=== PATIENT | male | born 1955 | race Caucasian/White ===

== ENCOUNTER 2024-08-29 13:01 | Inpatient (IN) | payer MEDICARE, OTHER, SELFPAY ==
[2024-08-29] VITALS (22 sets, daily range): BP systolic 130–162; BP diastolic 82–93; PULSE 92–116; TEMP 36.6–37.1; O2SAT 87–95; BMI 31.7; BMI 32.3
--- NOTE | 2024-08-29 13:19 | ECG_ITS ---
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
--- NOTE | 2024-08-29 13:21 | ED_ITS ---
HPI HPI - General Adult General Chief complaint: Shortness of Breath/Dyspnea Stated complaint: SHORT OF BREATH, COUGH Time Seen by Provider: 08/29/24 13:05 Source: patient Mode of arrival: walk-in Limitations: no limitations History of Present Illness HPI narrative: Patient is a 69-year-old male who presents to the emergency department for shortness of breath that has been worsening over the last several days. He states he had influenza 2 months ago and has had worsening/continued shortness of breath since he recovered from influenza. He has been to the doctor multiple times. He is currently taking cefdinir. He finished a course of steroids 2 weeks ago. He has an albuterol inhaler and nebulizer machine at home. He states his doctor is out of the office this week and he has called multiple pulmonology offices but they will need referrals so he came to the emergency department today. He reports a hacking cough. He typically has clear to white sputum but states occasionally he coughs up brown or blood-tinged sputum. No fevers, leg swelling. Related Data Home Medications ?Medication ?Instructions ?Recorded ?Confirmed albuterol sulfate 90 mcg/actuation 2 puff inhalation Q6H PRN 08/29/24 08/29/24 aerosol inhaler shortness of breath or wheezing atorvastatin 40 mg tablet 40 mg PO DAILY 08/29/24 08/29/24 clopidogrel 75 mg tablet 75 mg PO DAILY 08/29/24 08/29/24 metoprolol succinate 25 mg 25 mg PO DAILY 08/29/24 08/29/24 tablet,extended release 24 hr nitroglycerin 0.4 mg sublingual 0.4 mg sublingual Q5M PRN chest 08/29/24 08/29/24 tablet pain Allergies Allergy/AdvReac Type Severity Reaction Status Date / Time lisinopril Allergy Severe lip Verified 08/29/24 13:12 swelling Opioid HPI Opioid Management Most Recent Opioid Data: No Data to Display Review of Systems ROS Constitutional Denies: fever or chills Ears, nose, mouth, and throat Denies: throat pain or nasal congestion Cardiovascular Denies: chest pain Respiratory Reports: shortness of breath, cough, wheezing, change in phlegm color and coughing up blood Gastrointestinal Denies: abdominal pain, nausea or vomiting Musculoskeletal Denies: back pain Integumentary/Breast Denies: rash Neurological Denies: numbness in extremities or weakness in extremities Hematologic/Lymphatic Denies: easy bruising or easy bleeding PFSH PFSH Social History Little interest or pleasure in doing things: not at all Feeling down, depressed, or hopeless: not at all Exam Narrative Exam Narrative: Gen.: Awake, alert, in no distress Head: Normocephalic, atraumatic ENT: Moist mucous membranes Respiratory: Speaks in full sentences, inspiratory and expiratory wheezing Cardio: Regular rate and rhythm Extremities: Moves extremities equally Psych: Normal mood and affect Neuro: No focal neuro deficit Skin: Warm, dry, intact Constitutional Vital Signs, click to edit/add: Last Vital Signs Temp 98.8 F 08/29/24 13:06 Pulse 116 H 08/29/24 14:40 Resp 23 H 08/29/24 14:26 BP 135/86 08/29/24 14:26 Pulse Ox 94 L 08/29/24 14:26 O2 Del Method Nasal Cannula 08/29/24 13:40 O2 Flow Rate 2 08/29/24 13:40 Course Vital Signs Vital signs: Vital Signs Temperature 98.8 F 08/29/24 13:06 Pulse Rate 100 H 08/29/24 13:06 Respiratory Rate 20 08/29/24 13:06 Blood Pressure 148/83 H 08/29/24 13:06 Pulse Oximetry 93 L 08/29/24 13:06 Oxygen Delivery Method Room Air 08/29/24 13:06 Temperature 98.8 F 08/29/24 13:06 Pulse Rate 116 H 08/29/24 14:40 Respiratory Rate 23 H 08/29/24 14:26 Blood Pressure 135/86 08/29/24 14:26 Pulse Oximetry 94 L 08/29/24 14:26 Oxygen Delivery Method Nasal Cannula 08/29/24 13:40 Oxygen Delivery Flow Rate 2 08/29/24 13:40 Medical Decision Making MDM Narrative Medical decision making narrative: Sepsis set was used to obtain a sepsis workup, blood cultures. CT angio of the chest performed showing a right upper lobe pneumonia. Patient has been on cefdinir for 6 days. He has not been formally diagnosed with COPD by his primary care provider and has not yet seen a physical laboratory assistant, although he is a former smoker and I suspect he has COPD with an acute exacerbation. He was given a DuoNeb, Solu-Medrol, magnesium, IV fluids. He was noted to become hypoxic in the ER at 88 to 89% on room air and was placed on oxygen by nasal cannula 2 L with improvement. He will be admitted for COPD exacerbation, right upper lobe pneumonia, failure of outpatient treatment. IV Levaquin given for antibiotic coverage. Respiratory swabs obtained. SUPERVISED APC VISIT, PHYSICIAN ATTESTATION: Based on the medical record the care appears appropriate. ? Medical Records Medical records reviewed: Yes I reviewed the patient's medical records Lab Data Lab results reviewed: Yes I reviewed the patient's lab results Labs: Lab Results 08/29/24 08/29/24 Range/Units 13:30 13:39 WBC 6.2 (4.0-11.0) 10^3/uL RBC 4.97 (4.70-6.10) 10^6/uL Hgb 15.0 (14.0-18.0) g/dL Hct 46.7 (42.0-54.0) % MCV 94.0 (80.0-94.0) fL MCH 30.2 (25.9-34.0) pg MCHC 32.1 (29.9-35.2) g/dL RDW 13.5 (11.0-15.0) % Plt Count 255 (150-450) 10^3/uL MPV 10.4 (9.5-13.5) fL Neut % (Auto) 53.0 (43.0-75.0) % Lymph % (Auto) 28.3 (20.5-60.0) % [place] % (Auto) 7.7 (1.7-12.0) % Eos % (Auto) 10.0 H (0.9-7.0) % Baso % (Auto) 0.8 (0.2-2.0) % Neut # (Auto) 3.3 (1.4-6.5) 10^3/uL Lymph # (Auto) 1.8 (1.2-3.8) 10^3/uL [place] # (Auto) 0.5 (0.3-0.8) 10^3/uL Eos # (Auto) 0.6 (0.0-0.7) 10^3/uL Baso # (Auto) 0.1 (0.0-0.1) 10^3/uL Abs Immat Gran (auto) 0.01 (0.00-0.03) 10^3/uL Imm/Tot Granulo (auto) 0.2 (0.0-0.5) % PT 11.0 (9.0-11.6) sec INR 1.04 APTT 31.9 (22.3-36.2) sec VBG pH 7.382 (7.330-7.430) VBG pCO2 58.6 H (40.0-52.0) mmHg Sodium 141 (136-145) mmol/L Potassium 3.6 (3.5-5.1) mmol/L Chloride 102 (98-107) mmol/L Carbon Dioxide 31.9 (21.0-32.0) mmol/L Anion Gap 10.7 BUN 17.0 (7.0-18.0) mg/dL Creatinine 0.87 (0.70-1.30) mg/dL Est GFR ( Amer) >60 (>=60 mL/min/1.73m^2) Est GFR (Non-Af Amer) >60 (>=60 mL/min/1.73m^2) BUN/Creatinine Ratio 19.5 Glucose 154 H (74-106) mg/dL Lactate 1.8 (0.4-2.0) mmol/L Calcium 9.5 (8.5-10.1) mg/dL Magnesium 2.1 (1.8-2.4) mg/dL Total Bilirubin 0.5 (0.2-1.0) mg/dL AST 24 (15-37) U/L ALT 28 (16-63) U/L Alkaline Phosphatase 72 (46-116) U/L Troponin I High Sens 5.2 (4.0-76.1) pg/mL NT-Pro-B Natriuret Pep 82.0 (<=900.0) pg/mL Total Protein 7.4 (6.4-8.2) g/dL Albumin 3.8 (3.4-5.0) g/dL Globulin 3.6 g/dL Albumin/Globulin Ratio 1.[address] scan - chest: Attestation: I have reviewed the pertinent imaging results. ECG Data Attestation: I personally reviewed and interpreted this ECG as follows: (Normal sinus rhythm at a rate of 93, sinus arrhythmia, no acute ST elevation or ectopy. EKG reviewed by attending physician) Discharge Plan Discharge Chief Complaint: Shortness of Breath/Dyspnea Patient Disposition: Admitted As Inpatient Time of Disposition Decision: 15:12 Prescriptions / Home Meds: No Action clopidogrel 75 mg tablet 75 mg PO DAILY albuterol sulfate 90 mcg/actuation HFA aerosol inhaler 2 puff INHALATION Q6H PRN (Reason: shortness of breath or wheezing) metoprolol succinate 25 mg tablet extended release 24 hr 25 mg PO DAILY atorvastatin 40 mg tablet 40 mg PO DAILY nitroglycerin 0.4 mg tablet, sublingual 0.4 mg sublingual Q5M PRN (Reason: chest pain) Print Language: Korean Referrals: BARRERA ARRIOLA [Primary Care Provider] - 1 week
[2024-08-29] MEDS: IPRATROPIUM/ALBUTEROL SULFATE 3 ML AMPUL.NEB IH ×3 (13:40→22:58)
[2024-08-29] MEDS: HYDROCODONE BIT/HOMATROP 5 MG/1.5 MG TABLET 1 TAB PO (13:41)
[2024-08-29] MEDS: METHYLPREDNISOLONE SOD SUCC PF 125 MG/2 ML VIAL IVP (13:41)
[2024-08-29] MEDS: MAGNESIUM SULFATE IN WATER 2 GM/50 ML PREMIX IV (13:41)
[2024-08-29 13:52] LABS: PCO2 VBG 58.6 mmHg (40.0-52.0); pH VBG 7.382 (7.330-7.430)
[2024-08-29 13:55] LABS: Basophils Absolute Auto 0.1 10^3/uL (0.0-0.1); Basophils Percent Auto 0.8 % (0.2-2.0); Eosinophils Absolute Auto 0.6 10^3/uL (0.0-0.7); Hematocrit 46.7 % (42.0-54.0); Immature Granulocytes Abs Auto 0.01 10^3/uL (0.00-0.03); Immature Granulocytes Pct Auto 0.2 % (0.0-0.5); Lymphocytes Absolute Auto 1.8 10^3/uL (1.2-3.8); Lymphocytes Percent Auto 28.3 % (20.5-60.0); Mean Corpuscular HGB Conc 32.1 g/dL (29.9-35.2); Mean Corpuscular Hemoglobin 30.2 pg (25.9-34.0); Mean Platelet Volume 10.4 fL (9.5-13.5); Monocytes Absolute Auto 0.5 10^3/uL (0.3-0.8); Monocytes Percent Auto 7.7 % (1.7-12.0); Neutrophils Absolute Auto 3.3 10^3/uL (1.4-6.5); Platelet Count 255 10^3/uL (150-450); Red Blood Count 4.97 10^6/uL (4.70-6.10); Red Cell Distribution Width 13.5 % (11.0-15.0); White Blood Count 6.2 10^3/uL (4.0-11.0)
[2024-08-29 14:07] LABS: INR 1.04; Partial Thromboplastin Time 31.9 sec (22.3-36.2)
[2024-08-29 14:12] LABS: Lactate/Lactic Acid 1.8 mmol/L (0.4-2.0)
[2024-08-29 14:19] LABS: Alanine Aminotransferase 28 U/L (16-63); Albumin Globulin Ratio 1.1; Albumin Level 3.8 g/dL (3.4-5.0); Alkaline Phosphatase 72 U/L (46-116); Anion Gap 10.7; Aspartate Amino Transferase 24 U/L (15-37); BUN Creatinine Ratio 19.5; Bilirubin Total 0.5 mg/dL (0.2-1.0); Calcium 9.5 mg/dL (8.5-10.1); Carbon Dioxide 31.9 mmol/L (21.0-32.0); Chloride 102 mmol/L (98-107); Estimated GFR (African America >60 (>=60 mL/min/1.73m^2); Estimated GFR (Non-African Ame >60 (>=60 mL/min/1.73m^2); Globulin 3.6 g/dL; Glucose 154 mg/dL (74-106); Magnesium 2.1 mg/dL (1.8-2.4); Potassium 3.6 mmol/L (3.5-5.1); Sodium 141 mmol/L (136-145); Total Protein 7.4 g/dL (6.4-8.2); Troponin I High Sensitivity 5.2 pg/mL (4.0-76.1)
[2024-08-29] MEDS: LEVOFLOXACIN IN DEXTROSE 5 % 750 MG/150 ML PREMIX 100 MG IV (15:14)
[2024-08-29 15:36] LABS: Internal Control Within Normal Limits; SARS-CoV-2 Ag NEGATIVE (NEGATIVE)
[2024-08-29 15:37] LABS: Influenza Virus A Antigen Negative; Influenza Virus B Antigen Negative; Internal Control Within Normal Limits
--- NOTE | 2024-08-29 15:58 | PM.HP ---
HPI H&P: HPI History of Present Illness Chief complaint: SHORT OF BREATH, PNEUMONIA, HYPOXIA Narrative: Patient is a 69 y.o white male with past medical history of CAD s/p 2 stents 2023, HLD, HTN, ex-smoker, who presented to the ER with increased shortness of breath and productive cough. Patient had influenza a few months ago and since that time has been treated by his PCP several times with antibiotics and steroids. He has no active diagnosis of COPD and has never seen a pulmonary doctor or had PFT's. Most recently he was treated with cefdinir. Patient denies n/v/d, no chest pain, just the shortness of breath and cough. Very short of breath on exertion. Patient has been using 's nebulizer treatments. No fever or chills. ER findings: WBC's 6.2, cr 0.87, mag 2.1, Trop 5.2, Flu/Covid negative, Chest CT showed RUL infiltrate consistent with pneumonia. Patient respiratory rate was 29, and pulse ox dropped to 89% and 2L via NC was applied. Patient was admitted for acute community acquired RUL pneumonia. Opioid HPI Opioid Management Most Recent Pain and Opioid Data: Last ORT Total Score 0 08/29/24 16:10 08/29/24 Last ORT Risk Category Low Risk 08/29/24 16:10 08/29/24 Review of Systems ROS Narrative ROS: a complete review of systems were reviewed with patient and are positive as below or listed in History of Chief Complaint. General: no fever, chills, night sweats Head: no headache, trauma, visual changes, nausea or vomiting Skin: no reported rashes, itching or sores Eyes: no blurriness of vision Ears: no reported hearing loss, vertigo, earache, or tinnitus Throat: no sore throat, hoarseness, swelling of neck, or tongue pain Heart: no chest pain Lungs: shortness of breath and cough GI: no diarrhea or vomiting/nausea Urinary: no urinary urgency, frequency or pain Neuro: no numbness or tingling HEM: no bleeding issues or bruising ENDO: no thyroid problems Psych: no anxiety or depression [facility] Medical History (Updated 08/29/24 @ 16:06 by Maria Alejandra Sharma, ) Primary hypertension ?I10 - Essential (primary) hypertension (ICD-10) Hyperlipidemia ?E78.5 - Hyperlipidemia, unspecified (ICD-10) CAD in [place] artery ?I25.10 - Atherosclerotic heart disease of [place] coronary artery without angina pectoris (ICD-10) Surgical History (Updated 08/29/24 @ 17:03 by Maria Alejandra Sharma DO) History of heart artery stent ?Z95.5 - Presence of coronary angioplasty implant and graft (ICD-10) Social History Highest level of school completed/degree received: high school graduate Little interest or pleasure in doing things: several days Feeling down, depressed, or hopeless: not at all Meds Home Medications and Allergies Home Medications ?Medication ?Instructions ?Recorded ?Confirmed ?Type albuterol sulfate 90 mcg/actuation 2 puff inhalation Q6H PRN 08/29/24 08/29/24 History aerosol inhaler shortness of breath or wheezing atorvastatin 40 mg tablet 40 mg PO DAILY 08/29/24 08/29/24 History clopidogrel 75 mg tablet 75 mg PO DAILY 08/29/24 08/29/24 History metoprolol succinate 25 mg 25 mg PO DAILY 08/29/24 08/29/24 History tablet,extended release 24 hr nitroglycerin 0.4 mg sublingual 0.4 mg sublingual Q5M PRN chest 08/29/24 08/29/24 History tablet pain Allergies Allergy/AdvReac Type Severity Reaction Status Date / Time lisinopril Allergy Severe lip Verified 08/29/24 13:12 swelling Exam Narrative Exam Narrative: General: Patient is alert, and oriented to person, place and time with normal affect, proper hygiene, short of breath with conversing Skin: no visible rashes, or ulcers Head: atraumatic, acephalic Eyes: PERRLA, no nystagmus present, conjunctiva clear, no scleral icterus Ears: normal gross auditory acuity Heart: Normal rate and rhythm, no murmurs/rubs/gallops Lungs: audible wheezes, diminished breath sounds in all lung de la o Abdomen: Normal audible bowel sounds, no distension, No palpable masses, no organomegaly, no rebound/guarding/ or rigidity Musculoskeletal: no swelling bilateral lower extremities Neuro: CN II-X grossly intact Constitutional Vital Signs, click to edit/add: Last Vital Signs Temp 98.8 F 08/29/24 13:06 Pulse 97 H 03/18/25 15:17 Resp 17 08/29/24 15:17 BP 139/93 H 08/29/24 15:17 Pulse Ox 92 L 08/29/24 15:17 O2 Del Method Nasal Cannula 08/29/24 13:40 O2 Flow Rate 2 08/29/24 13:40 Results Labs Labs: Short CBC 08/29/24 Range/Units 13:30 WBC 6.2 (4.0-11.0) 10^3/uL Hgb 15.0 (14.0-18.0) g/dL Hct 46.7 (42.0-54.0) % Plt Count 255 (150-450) 10^3/uL BMP 08/29/24 13:30 Sodium 141 Potassium 3.6 Chloride 102 Carbon Dioxide 31.9 BUN 17.0 Creatinine 0.87 Glucose 154 H Calcium 9.5 Liver Function 08/29/24 Range/Units 13:30 Total Bilirubin 0.5 (0.2-1.0) mg/dL AST 24 (15-37) U/L ALT 28 (16-63) U/L Alkaline Phosphatase 72 (46-116) U/L Albumin 3.8 (3.4-5.0) g/dL ABG ABG results: 08/29/24 13:39 VBG pH 7.382 VBG pCO2 58.6 H Assessment and Plan Assessment and Plan (1) Right upper lobe pneumonia: Assessment and Plan: as seen on CT scan. Start IV levaquin and IV rocephin. obtain sputum and blood cultures. Opep, duonebs, addition of pulmicort, and Solumedrol 40mg q6h IV. Monitor the need of worsening respiratory status. Normal WBC's, viral testing negative. Qualifiers: Pneumonia type: due to unspecified organism Qualified Code(s): J18.9 - Pneumonia, unspecified organism (2) Acute respiratory failure with hypoxia: Assessment and Plan: due to #1, requring 2L via NC (3) CAD in [place] artery: Assessment and Plan: continue plavix and statin (4) Hyperlipidemia: Assessment and Plan: continue statin Qualifiers: Hyperlipidemia type: unspecified Qualified Code(s): E78.5 - Hyperlipidemia, unspecified (5) Primary hypertension: Assessment and Plan: continue metoprolol (6) History of heart artery stent: Plan Patient is a full code Lovenox for dvt prophylaxis Patient is inpatient status and is expected to cross 2 midnights for hospital necessary care.
[2024-08-29] MEDS: CEFTRIAXONE 1,000 MG in 0.9 % SODIUM CHLORIDE 50 ML 100 MG IV (18:15)
[2024-08-29] MEDS: 0.9 % SODIUM CHLORIDE 250 ML 10 ML IV (18:19)
[2024-08-29] MEDS: METHYLPREDNISOLONE SOD SUCC PF 40 MG/ML VIAL IVP (20:35)
[2024-08-29] MEDS: BUDESONIDE 0.5 MG/2 ML AMPULE NEB IH (22:58)
[2024-08-30] VITALS (20 sets, daily range): BP systolic 127–147; BP diastolic 75–84; PULSE 85–116; TEMP 36.7–36.9; O2SAT 90–95
[2024-08-30] MEDS: METHYLPREDNISOLONE SOD SUCC PF 40 MG/ML VIAL IVP ×4 (01:25→21:23)
[2024-08-30] MEDS: IPRATROPIUM/ALBUTEROL SULFATE 3 ML AMPUL.NEB IH ×4 (05:09→22:18)
[2024-08-30 05:40] LABS: Basophils Percent Auto 0.1 % (0.2-2.0); Eosinophils Percent Auto 0.1 % (0.9-7.0); Hematocrit 44.7 % (42.0-54.0); Hemoglobin 14.6 g/dL (14.0-18.0); Immature Granulocytes Abs Auto 0.02 10^3/uL (0.00-0.03); Immature Granulocytes Pct Auto 0.3 % (0.0-0.5); Lymphocytes Absolute Auto 0.9 10^3/uL (1.2-3.8); Lymphocytes Percent Auto 11.6 % (20.5-60.0); Mean Corpuscular HGB Conc 32.7 g/dL (29.9-35.2); Mean Corpuscular Hemoglobin 30.3 pg (25.9-34.0); Mean Corpuscular Volume 92.7 fL (80.0-94.0); Mean Platelet Volume 10.5 fL (9.5-13.5); Monocytes Absolute Auto 0.1 10^3/uL (0.3-0.8); Monocytes Percent Auto 1.3 % (1.7-12.0); Neutrophils Absolute Auto 6.5 10^3/uL (1.4-6.5); Neutrophils Percent Auto 86.6 % (43.0-75.0); Platelet Count 267 10^3/uL (150-450); Red Blood Count 4.82 10^6/uL (4.70-6.10); Red Cell Distribution Width 13.6 % (11.0-15.0); White Blood Count 7.5 10^3/uL (4.0-11.0)
[2024-08-30 06:11] LABS: Alanine Aminotransferase 26 U/L (16-63); Albumin Globulin Ratio 1.1; Alkaline Phosphatase 72 U/L (46-116); Anion Gap 14.8; Aspartate Amino Transferase 21 U/L (15-37); BUN Creatinine Ratio 20.4; Bilirubin Total 0.3 mg/dL (0.2-1.0); Calcium 9.5 mg/dL (8.5-10.1); Carbon Dioxide 27.6 mmol/L (21.0-32.0); Chloride 102 mmol/L (98-107); Estimated GFR (African America >60 (>=60 mL/min/1.73m^2); Estimated GFR (Non-African Ame >60 (>=60 mL/min/1.73m^2); Globulin 3.6 g/dL; Glucose 166 mg/dL (74-106); Potassium 4.4 mmol/L (3.5-5.1); Sodium 140 mmol/L (136-145); Total Protein 7.6 g/dL (6.4-8.2)
--- NOTE | 2024-08-30 08:54 | PM.PN ---
Progress Note: Subjective Subjective Interval history: Patient still with hypoxia and requiring 3L via NC, but he feels less short of breath and is coughing more. No fevers or chills, no n/v/d Exam Narrative Exam Narrative: General: Patient is alert, and oriented to person, place and time with normal affect, proper hygiene, short of breath with conversing Skin: no visible rashes, or ulcers Head: atraumatic, acephalic Eyes: PERRLA, no nystagmus present, conjunctiva clear, no scleral icterus Ears: normal gross auditory acuity Heart: Normal rate and rhythm, no murmurs/rubs/gallops Lungs: audible wheezes worse in bilateral bases, diminished breath sounds in all lung de la o Abdomen: Normal audible bowel sounds, no distension, No palpable masses, no organomegaly, no rebound/guarding/ or rigidity Musculoskeletal: no swelling bilateral lower extremities Neuro: CN II-X grossly intact Constitutional Vital Signs, click to edit/add: Last Vital Signs Temp 98.1 F 08/30/24 07:35 Pulse 116 H 08/30/24 08:00 Resp 20 08/30/24 07:35 BP 147/84 H 08/30/24 07:35 Pulse Ox 91 L 08/30/24 07:35 O2 Del Method Nasal Cannula 08/30/24 07:35 O2 Flow Rate 3 08/30/24 07:35 Progress Note: Objective Labs Labs: Short CBC 08/29/24 08/30/24 Range/Units 13:30 05:24 WBC 6.2 7.5 (4.0-11.0) 10^3/uL Hgb 15.0 14.6 (14.0-18.0) g/dL Hct 46.7 44.7 (42.0-54.0) % Plt Count 255 267 (150-450) 10^3/uL BMP 08/29/24 08/30/24 13:30 05:24 Sodium 141 140 Potassium 3.6 4.4 Chloride 102 102 Carbon Dioxide 31.9 27.6 BUN 17.0 19.0 H Creatinine 0.87 0.93 Glucose 154 H 166 H Calcium 9.5 9.5 Liver Function 08/29/24 08/30/24 Range/Units 13:30 05:24 Total Bilirubin 0.5 0.3 (0.2-1.0) mg/dL AST 24 21 (15-37) U/L ALT 28 26 (16-63) U/L Alkaline Phosphatase 72 72 (46-116) U/L Albumin 3.8 4.0 (3.4-5.0) g/dL Progress Note: A&P Assessment and Plan (1) Right upper lobe pneumonia: Assessment and Plan: as seen on CT scan. Start IV levaquin and IV rocephin. obtain sputum and blood cultures. Opep, duonebs, addition of pulmicort, and Solumedrol 40mg q6h IV. Monitor the need of worsening respiratory status. Normal WBC's, viral testing negative. Qualifiers: Pneumonia type: due to unspecified organism Qualified Code(s): J18.9 - Pneumonia, unspecified organism (2) Acute respiratory failure with hypoxia: Assessment and Plan: due to #1, requiring 3L via NC (3) CAD in [place] artery: Assessment and Plan: continue plavix and statin (4) Hyperlipidemia: Assessment and Plan: continue statin Qualifiers: Hyperlipidemia type: unspecified Qualified Code(s): E78.5 - Hyperlipidemia, unspecified (5) Primary hypertension: Assessment and Plan: continue metoprolol (6) History of heart artery stent: Plan Patient is a full code Lovenox for dvt prophylaxis Patient will most likely require 1-2 more of hospital necessary care.
[2024-08-30] MEDS: CLOPIDOGREL BISULFATE 75 MG TABLET PO (09:01)
[2024-08-30] MEDS: METOPROLOL SUCCINATE 25 MG TAB.ER.24H PO (09:02)
[2024-08-30] MEDS: BUDESONIDE 0.5 MG/2 ML AMPULE NEB IH ×2 (10:51→22:18)
--- NOTE | 2024-08-30 11:48 | CM.NOTE ---
Rounds made with Dr. Sharma, will attempt to wean oxygen today. No discharge, discussed plan of care and diagnosis.
[2024-08-30] MEDS: LEVOFLOXACIN IN DEXTROSE 5 % 750 MG/150 ML PREMIX 100 MG IV (14:07)
--- NOTE | 2024-08-30 14:07 | CM.NOTE ---
Important message From [employer] discussed with pt, pt verbalizes understanding and signs paper. Original given to pt and copy placed on pt's chart.
[2024-08-30] MEDS: CEFTRIAXONE 1,000 MG in 0.9 % SODIUM CHLORIDE 50 ML 100 MG IV (15:45)
[2024-08-30] MEDS: ATORVASTATIN CALCIUM 40 MG TABLET PO (21:23)
[2024-08-30] MEDS: ENOXAPARIN SODIUM 40 MG/0.4 ML SYRINGE SUBQ (21:23)
[2024-08-31] VITALS (24 sets, daily range): BP systolic 129–148; BP diastolic 74–88; PULSE 90–110; TEMP 36.4–36.8; O2SAT 84–95
[2024-08-31] MEDS: METHYLPREDNISOLONE SOD SUCC PF 40 MG/ML VIAL IVP ×4 (03:06→21:28)
[2024-08-31] MEDS: IPRATROPIUM/ALBUTEROL SULFATE 3 ML AMPUL.NEB IH ×4 (05:21→22:09)
[2024-08-31 06:05] LABS: Basophils Percent Auto 0.1 % (0.2-2.0); Eosinophils Percent Auto 0.1 % (0.9-7.0); Hematocrit 46.7 % (42.0-54.0); Hemoglobin 14.9 g/dL (14.0-18.0); Immature Granulocytes Abs Auto 0.05 10^3/uL (0.00-0.03); Immature Granulocytes Pct Auto 0.4 % (0.0-0.5); Lymphocytes Absolute Auto 0.7 10^3/uL (1.2-3.8); Lymphocytes Percent Auto 5.2 % (20.5-60.0); Mean Corpuscular HGB Conc 31.9 g/dL (29.9-35.2); Mean Corpuscular Hemoglobin 30.4 pg (25.9-34.0); Mean Corpuscular Volume 95.3 fL (80.0-94.0); Mean Platelet Volume 10.9 fL (9.5-13.5); Monocytes Absolute Auto 0.7 10^3/uL (0.3-0.8); Monocytes Percent Auto 4.7 % (1.7-12.0); Neutrophils Absolute Auto 12.7 10^3/uL (1.4-6.5); Neutrophils Percent Auto 89.5 % (43.0-75.0); Platelet Count 271 10^3/uL (150-450); Red Cell Distribution Width 14.4 % (11.0-15.0); White Blood Count 14.2 10^3/uL (4.0-11.0)
[2024-08-31 06:24] LABS: Alanine Aminotransferase 25 U/L (16-63); Albumin Level 3.7 g/dL (3.4-5.0); Alkaline Phosphatase 64 U/L (46-116); Anion Gap 7.7; Aspartate Amino Transferase 20 U/L (15-37); BUN Creatinine Ratio 26.7; Bilirubin Total 0.3 mg/dL (0.2-1.0); Calcium 9.3 mg/dL (8.5-10.1); Carbon Dioxide 34.2 mmol/L (21.0-32.0); Chloride 103 mmol/L (98-107); Estimated GFR (African America >60 (>=60 mL/min/1.73m^2); Estimated GFR (Non-African Ame >60 (>=60 mL/min/1.73m^2); Globulin 3.6 g/dL; Glucose 149 mg/dL (74-106); Potassium 4.9 mmol/L (3.5-5.1); Sodium 140 mmol/L (136-145); Total Protein 7.3 g/dL (6.4-8.2)
[2024-08-31] MEDS: METOPROLOL SUCCINATE 25 MG TAB.ER.24H PO (08:06)
[2024-08-31] MEDS: CLOPIDOGREL BISULFATE 75 MG TABLET PO (08:06)
--- NOTE | 2024-08-31 08:28 | PM.PN ---
Progress Note: Subjective Subjective Interval history: Patient still with hypoxia and requiring 3L via NC, but he feels less short of breath and is coughing more. No fevers or chills, no n/v/d. Tired and is not getting much rest here at night time. Discussed pulmonary appointment with Dr. Beltran and PFT's that will needed for diagnosis of his underlying lung issue. Discussed recheck Chest X-ray today. Exam Narrative Exam Narrative: General: Patient is alert, and oriented to person, place and time with normal affect, proper hygiene Skin: no visible rashes, or ulcers Head: atraumatic, acephalic Eyes: PERRLA, no nystagmus present, conjunctiva clear, no scleral icterus Ears: normal gross auditory acuity Heart: Normal rate and rhythm, no murmurs/rubs/gallops Lungs: audible wheezes bilateral lungs with some rhonchi, productive cough Abdomen: Normal audible bowel sounds, no distension, No palpable masses, no organomegaly, no rebound/guarding/ or rigidity Musculoskeletal: no swelling bilateral lower extremities Neuro: CN II-X grossly intact Constitutional Vital Signs, click to edit/add: Last Vital Signs Temp 97.7 F 08/31/24 07:00 Pulse 97 H 08/31/24 07:57 Resp 18 08/31/24 07:00 BP 142/88 H 08/31/24 07:00 Pulse Ox 95 08/31/24 07:00 O2 Del Method Nasal Cannula 08/31/24 07:00 O2 Flow Rate 3 08/31/24 07:00 Progress Note: Objective Labs Labs: Short CBC 08/31/24 Range/Units 05:00 WBC 14.2 H (4.0-11.0) 10^3/uL Hgb 14.9 (14.0-18.0) g/dL Hct 46.7 (42.0-54.0) % Plt Count 271 (150-450) 10^3/uL BMP 08/31/24 05:19 Sodium 140 Potassium 4.9 Chloride 103 Carbon Dioxide 34.2 H BUN 23.0 H Creatinine 0.86 Glucose 149 H Calcium 9.3 Liver Function 08/31/24 Range/Units 05:19 Total Bilirubin 0.3 (0.2-1.0) mg/dL AST 20 (15-37) U/L ALT 25 (16-63) U/L Alkaline Phosphatase 64 (46-116) U/L Albumin 3.7 (3.4-5.0) g/dL Progress Note: A&P Assessment and Plan (1) Right upper lobe pneumonia: Assessment and Plan: IV levaquin and IV rocephin. obtain sputum and blood cultures. Opep, duonebs, addition of pulmicort, and Solumedrol 40mg q6h IV. Monitor the need of worsening respiratory status. Qualifiers: Pneumonia type: due to unspecified organism Qualified Code(s): J18.9 - Pneumonia, unspecified organism (2) Acute respiratory failure with hypoxia: Assessment and Plan: due to #1, requiring 3L via NC, patient drops to 87% on room air off the oxygen so will most likely require and benefit from home oxygen at 3L (3) CAD in [place] artery: Assessment and Plan: continue plavix and statin (4) Hyperlipidemia: Assessment and Plan: continue statin Qualifiers: Hyperlipidemia type: unspecified Qualified Code(s): E78.5 - Hyperlipidemia, unspecified (5) Primary hypertension: Assessment and Plan: continue metoprolol and lisinopril (6) History of heart artery stent: Plan Patient is a full code patient is ambulatory Hopeful discharge home tomorrow.
[2024-08-31] MEDS: BUDESONIDE 0.5 MG/2 ML AMPULE NEB IH ×2 (10:51→22:09)
--- NOTE | 2024-08-31 12:02 | CM.NOTE ---
Rounds made with Dr. Sharma. Dr. Sharma reviews plan of care with Mr. Gold. No discharge today.
--- NOTE | 2024-08-31 14:57 | SWNOTE1 ---
Pt may need home oxygen at discharge. Pt on 2 liters at hospital at this time, no 02 at home.
[2024-08-31] MEDS: LEVOFLOXACIN IN DEXTROSE 5 % 750 MG/150 ML PREMIX 100 MG IV (15:03)
[2024-08-31] MEDS: 0.9 % SODIUM CHLORIDE 250 ML 10 ML IV (15:16)
[2024-08-31] MEDS: CEFTRIAXONE 1,000 MG in 0.9 % SODIUM CHLORIDE 50 ML 100 MG IV (16:50)
[2024-08-31] MEDS: ATORVASTATIN CALCIUM 40 MG TABLET PO (21:28)
[2024-09-01] VITALS (10 sets, daily range): BP systolic 124–144; BP diastolic 67–89; PULSE 74–105; TEMP 36.6; O2SAT 90–92
[2024-09-01] MEDS: IPRATROPIUM/ALBUTEROL SULFATE 3 ML AMPUL.NEB IH ×2 (05:13→11:04)
[2024-09-01 05:56] LABS: Eosinophils Absolute Auto 0.1 10^3/uL (0.0-0.7); Eosinophils Percent Auto 0.6 % (0.9-7.0); Hematocrit 51.4 % (42.0-54.0); Hemoglobin 16.3 g/dL (14.0-18.0); Immature Granulocytes Abs Auto 0.06 10^3/uL (0.00-0.03); Immature Granulocytes Pct Auto 0.4 % (0.0-0.5); Lymphocytes Absolute Auto 1.2 10^3/uL (1.2-3.8); Lymphocytes Percent Auto 7.5 % (20.5-60.0); Mean Corpuscular HGB Conc 31.7 g/dL (29.9-35.2); Mean Corpuscular Volume 94.5 fL (80.0-94.0); Mean Platelet Volume 10.8 fL (9.5-13.5); Monocytes Absolute Auto 0.8 10^3/uL (0.3-0.8); Monocytes Percent Auto 5.3 % (1.7-12.0); Neutrophils Absolute Auto 13.3 10^3/uL (1.4-6.5); Neutrophils Percent Auto 86.2 % (43.0-75.0); Platelet Count 278 10^3/uL (150-450); Red Blood Count 5.44 10^6/uL (4.70-6.10); Red Cell Distribution Width 14.3 % (11.0-15.0); White Blood Count 15.4 10^3/uL (4.0-11.0)
[2024-09-01 06:08] LABS: Alanine Aminotransferase 26 U/L (16-63); Albumin Level 3.9 g/dL (3.4-5.0); Alkaline Phosphatase 64 U/L (46-116); Anion Gap 8.9; Aspartate Amino Transferase 17 U/L (15-37); BUN Creatinine Ratio 24.7; Bilirubin Total 0.4 mg/dL (0.2-1.0); Calcium 9.4 mg/dL (8.5-10.1); Carbon Dioxide 33.6 mmol/L (21.0-32.0); Chloride 101 mmol/L (98-107); Estimated GFR (African America >60 (>=60 mL/min/1.73m^2); Estimated GFR (Non-African Ame >60 (>=60 mL/min/1.73m^2); Globulin 3.8 g/dL; Glucose 147 mg/dL (74-106); Potassium 4.5 mmol/L (3.5-5.1); Sodium 139 mmol/L (136-145); Total Protein 7.7 g/dL (6.4-8.2)
--- NOTE | 2024-09-01 09:05 | PM.DS1 ---
DS: Providers Provider Date of admission: 08/29/24 15:56 Primary care physician: BARRERA ARRIOLA Attending physician on admission: Maria Alejandra Sharma Discharging clinician: Maria Alejandra Sharma DS: Diagnosis Discharge Diagnosis (1) Right upper lobe pneumonia: Qualifiers: Pneumonia type: due to unspecified organism Qualified Code(s): J18.9 - Pneumonia, unspecified organism (2) Acute respiratory failure with hypoxia: (3) CAD in [place] artery: (4) Hyperlipidemia: Qualifiers: Hyperlipidemia type: unspecified Qualified Code(s): E78.5 - Hyperlipidemia, unspecified (5) Primary hypertension: (6) History of heart artery stent: DS: Summary Hospital Course Hospital Course: Patient is a 69 y.o white male with past medical history of CAD s/p 2 stents 2023, HLD, HTN, ex-smoker, who presented to the ER with increased shortness of breath and productive cough. Patient had influenza a few months ago and since that time has been treated by his PCP several times with antibiotics and steroids. He has no active diagnosis of COPD and has never seen a pulmonary doctor or had PFT's. Most recently he was treated with cefdinir. Patient denies n/v/d, no chest pain, just the shortness of breath and cough. Very short of breath on exertion. Patient has been using 's nebulizer treatments. No fever or chills. ER findings: WBC's 6.2, cr 0.87, mag 2.1, Trop 5.2, Flu/Covid negative, Chest CT showed RUL infiltrate consistent with pneumonia. Patient respiratory rate was 29, and pulse ox dropped to 89% and 2L via NC was applied. Patient was treated with IV Rocephin, Levaquin, IV solumedrol, duonebs, pulmicort, OPEP. Chest X-ray was taken 08/31/24 with resolution of the pneumonia, Blood cultures have been negative. WBC's 15.4 but steroid induced. Sputum culture is pending. Patient dropped <88% with walking on room air. He will need home oxygen 2L via NC continuous. This will be through [facility]. He has close Pulmonary follow up to assess the need for this in the next few weeks. I will treat him with prednisone 40mg daily x 7 days, Levaquin 750mg daily x 5 days, Symbicort and he is to continue his Albuterol inhaler as needed and OPEP at home. He will need PFT's to assess his baseline lung function once he is symptomatically better. He will resume other home medications. Also, Patient was on Lisinopril 2.5 daily for a few days at home several months ago and developed Angioedema of his lips so he stopped at home. Somehow Lisinopril was added to his home meds while here at the hospital. Luckily the patient identified that he is allergic to Lisinopril and the medication was never given to him. I apologized about the medication error that was made from pharmacy and also on my part, Lisinopril was d/c from his home meds and also from the current order list at [facility]. His allergies are updated and are correct, with Lisinopril listed. I have contacted Meredith Lin our nursing switchman supervisor who will make a formal incident report for our Med staff so this does not happen again. Status at Discharge Functional status at discharge: independent ambulation Overall status at discharge: patient is progressing back to baseline Time Spent with Patient Time attestation: Total time spent providing and/or coordinating discharge services: Time spent: greater than 30 minutes Exam Narrative Exam Narrative: General: Patient is alert, and oriented to person, place and time with normal affect, proper hygiene Skin: no visible rashes, or ulcers Head: atraumatic, acephalic Eyes: PERRLA, no nystagmus present, conjunctiva clear, no scleral icterus Ears: normal gross auditory acuity Heart: Normal rate and rhythm, no murmurs/rubs/gallops Lungs: audible wheezes bilateral bases but otherwise normal breath sounds Abdomen: Normal audible bowel sounds, no distension, No palpable masses, no organomegaly, no rebound/guarding/ or rigidity Musculoskeletal: no swelling bilateral lower extremities Neuro: CN II-X grossly intact Constitutional Vital Signs, click to edit/add: Last Vital Signs Temp 97.8 F 09/01/24 07:30 Pulse 105 H 09/01/24 08:00 Resp 18 09/01/24 07:30 BP 144/76 H 09/01/24 07:30 Pulse Ox 92 L 09/01/24 07:30 O2 Del Method Nasal Cannula 09/01/24 07:30 O2 Flow Rate 1.5 09/01/24 07:30 DS: Data Data Completed and Pending Labs on day of discharge: Labs from last 24 hours 09/01/24 05:35 WBC 15.4 H RBC 5.44 Hgb 16.3 Hct 51.4 MCV 94.5 H MCH 30.0 MCHC 31.7 RDW 14.3 Plt Count 278 MPV 10.8 Neut % (Auto) 86.2 H Lymph % (Auto) 7.5 L [place] % (Auto) 5.3 Eos % (Auto) 0.6 L Baso % (Auto) 0.0 L Neut # (Auto) 13.3 H Lymph # (Auto) 1.2 [place] # (Auto) 0.8 Eos # (Auto) 0.1 Baso # (Auto) 0.0 Abs Immat Gran (auto) 0.06 H Imm/Tot Granulo (auto) 0.4 Sodium 139 Potassium 4.5 Chloride 101 Carbon Dioxide 33.6 H Anion Gap 8.9 BUN 24.0 H Creatinine 0.97 Est GFR ( Amer) >60 Est GFR (Non-Af Amer) >60 BUN/Creatinine Ratio 24.7 Glucose 147 H Calcium 9.4 Total Bilirubin 0.4 AST 17 ALT 26 Alkaline Phosphatase 64 Total Protein 7.7 Albumin 3.9 Globulin 3.8 Albumin/Globulin Ratio 1.0 Preliminary micro results at discharge 08/29/24 13:39 Blood Culture Result 2 - Preliminary Blood - Left Antecubital NO GROWTH AT 36-48 HOURS. FINAL TO FOLLOW. 08/29/24 13:30 Blood Culture Result 1 - Preliminary Blood - Right Antecubital NO GROWTH AT 36-48 HOURS. FINAL TO FOLLOW. Discharge Plan Discharge Disposition: Home, Self-Care Condition: Good Discharge Medications: New prednisone 20 mg tablet 20 mg PO BID 7 Days Qty: 14 0RF budesonide-formoterol [Symbicort] 160-4.5 mcg/actuation HFA aerosol inhaler 1 puff inhalation BID Qty: 10.2 0RF levofloxacin 750 mg tablet 750 mg PO DAILY 5 Days Qty: 5 0RF Continued clopidogrel 75 mg tablet 75 mg PO DAILY albuterol sulfate 90 mcg/actuation HFA aerosol inhaler 2 puff INHALATION Q6H PRN (Reason: shortness of breath or wheezing) metoprolol succinate 25 mg tablet extended release 24 hr 25 mg PO DAILY atorvastatin 40 mg tablet 40 mg PO DAILY nitroglycerin 0.4 mg tablet, sublingual 0.4 mg sublingual Q5M PRN (Reason: chest pain) Discontinued cefdinir 300 mg capsule 300 mg PO BID Rx Instructions: 08/23/24-09/01/24 benzonatate 200 mg capsule 200 mg PO TID PRN (Reason: cough) Rx Instructions: 08/23/24-09/01/24 Activity: increase activity as tolerated and wear oxygen at all times Activity Detail: 2L via [employer] Diet: advance to your usual diet Print Language: Ghanaian Patient Instructions: Prednisone (By mouth), Levofloxacin (By mouth), Budesonide/Formoterol (By breathing) (Symbicort, Symbicort Aerosphere), Using Oxygen at Home (DC), Pneumonia (DC) Clinical Secretary/Labor Relations Director Instructions: Discharge on 2 liters of home oxygen through [facility]. [facility] phone number [phone] Please contact [facility] on your way home or once you arrive home so they can deliver the rest of the supplies. Forms: Portal Instructions Follow Up Appointments: September 27 @ 8am with Dr. Beltran (Pulmonology) at [facility] [phone] *bring photo ID, insurance card & copay please call to cancel appt. if not intending to go Discharge location: Home
[2024-09-01] MEDS: METHYLPREDNISOLONE SOD SUCC PF 40 MG/ML VIAL IVP (09:36)
[2024-09-01] MEDS: CLOPIDOGREL BISULFATE 75 MG TABLET PO (09:37)
[2024-09-01] MEDS: METOPROLOL SUCCINATE 25 MG TAB.ER.24H PO (09:37)
--- NOTE | 2024-09-01 09:51 | SWNOTE1 ---
Pt will be discharged today on home oxygen at 2 liters. SUSAN spoke to pt and he originally voiced he was from [place] and wanted [facility]. SW advised that [facility] in [place] does not supply home oxygen anymore. Pt voiced he does not have a preference then. SUSAN to send referral to [facility]. Pt will be on 2 liters continuous. SUSAN faxed prescription, walk test, and progress note from yesterday, and face sheet to [facility].
--- NOTE | 2024-09-01 10:48 | SWNOTE1 ---
SUSAN received a call from [facility] [place] and pt's home oxygen is all set. SUSAN took pt a tank to his room and explained to call [facility] [place] when he is leaving or arrives home. Phone number provided. SW advised they will deliver the rest of the equipment once pt is at home. Pt voiced understanding.
[2024-09-01] MEDS: BUDESONIDE 0.5 MG/2 ML AMPULE NEB IH (11:04)
--- NOTE | 2024-09-01 11:22 | CM.NOTE ---
Rounds made with Dr. Sharma. Dr. Sharma reviews plan of care, discharge medications and oxygen use. Plan for discharge to home today. Mr. Gold verbalizes understanding.
--- NOTE | 2024-09-05 13:56 | CM.DCFOLLOWU ---
Person spoke with: Jer How are you feeling? Much better How is your pain? No pain Did you understand your discharge instructions? Yes Do you have any questions about your discharge instructions? No Were you given any prescriptions at discharge? Yes Were you able to get your prescriptions filled? Yes , all but inhaler (they will call when inhaler in filled) Do you understand how to take your medications as ordered? Yes Do you have any questions about your follow up appointment and do you plan to keep your follow up appointment? No they are scheduled Is there anything else that you would like to discuss? No Questions/Comments/Concerns/Other:
== END 2024-09-01 12:07 | disposition home or self-care (01) | DRG 193 ==
LOC: ER 15:15 → MS 16:05
PROVIDERS: Physician Assistant; Admitting Provider Family Medicine; Emergency Provider Emergency Medicine; PCP Family Medicine; Visit Provider Family Medicine
DX: J18.9 Pneumonia, unspecified organism (principal); J96.01 Acute respiratory failure with hypoxia; I25.10 Atherosclerotic heart disease of native coronary artery without angina pectoris; E78.5 Hyperlipidemia, unspecified; I10 Essential (primary) hypertension; I27.20 Pulmonary hypertension, unspecified; Z95.5 Presence of coronary angioplasty implant and graft; Z79.899 Other long term (current) drug therapy; Z79.02 Long term (current) use of antithrombotics/antiplatelets; Z88.8 Allergy status to other drugs, medicaments and biological substances; Z87.891 Personal history of nicotine dependence; Z87.09 Personal history of other diseases of the respiratory system
CPT/HCPCS: 36415; 71045; 71275; 80053; 82800; 83605; 83735; 83880; 84484; 85025; 85610; 85730; 87040; 87070; 87205; 87804; 87811; 93005; 94640; 94667; 94668; 94761; 96365; 96367; 96375; 99285; J0696; J1650; J2919; J3475; Q9967

== ENCOUNTER 2025-01-29 10:34 | Emergency (ER) | payer MEDICARE, OTHER, SELFPAY ==
[2025-01-29 10:38] VITALS: BP 171/91; PULSE 74; TEMP 36.8; O2SAT 95; BMI 31.0
--- OUTSIDE RECORDS SUMMARY | 2025-01-29 10:43 | XMS_ITS | CCD ---
Author Organization [facility] Care Team Providers Care Chemical Instrumentation Officer Name Role Phone Bunting, DO Barrera Primary Care Provider [phone] Bunting, DO Barrera Attending Provider MD Brain Stanley Referring Provider Bunting DO, Barrera Ray Primary Care Provider MD Neva Almaguer Attending Provider [facility], DO Major Back Attending Provider [facility], DO Major Back Attending Provider NEVA ALMAGUER Referring Unavailable BUNTING, BARRERA RAY Primary Care Unavailable Bunting DO, Barrera Primary Care Provider Bunting DO, Barrera Attending Provider Neva Almaguer MD Attending Provider Bunting, Barrera Primary Care Unavailable Bunting, Barrera Attending Unavailable Bunting, Barrera Admitting Unavailable Brain Stanley Referring Unavail able Bunting, Barrera Primary Care Unavailable Bunting, Barrera Attending Unavailable Bunting, Barrera Admitting Unavailable Traboulssi, Yvrosef Admitting Unavailable Traboulssi, Yvrosef Attending Unavailable Bunting, Barrera Primary Care Unavailable Traboulssi, Mourhaf Admitting Unavailable Bunting, Barrera Primary Care Unavailable Traboulssi, Mourhaf Attending Unavailable Bunting, Barrera Attending Unavailable Bunting, Barrera Admitting Unavailable Bunting, Barrera Primary Care Unavailable Traboulssi, Mourhaf Attending Unavailable Bunting, Barrera Primary Care Unavailable Traboulssi, Arsenurhaf Admitting Unavailable Kuns - Major VEGA Admitting Unavailable Radha Major VEGA Attending Unavailable Barrera Arriola Primary Care Unavailable Barrera rAriola DO Primary Care Provider NEVA ALMAGUER Attending Unavailable BARRERA ARRIOLA Primary Care Unavailable NEVA ALMAGUER Attending Unavailable NEVA ALMAGUER Referring Unavailable BARRERA ARRIOLA Primary Care Unavailable NEVA ALMAGUER Attending Unavailable NEVA ALMAGUER Referring Unavailable SAMIAISHABARRERA Primary Care Unavailable Medications Current Medications Medication Drug Class(es) Dates Sig (Normalized) Sig (Original) aspirin 81 mg delayed release oral tablet (10 sources) Platelet Aggregation Inhibitor, Nonsteroidal Anti-inflammatory Drug Start: 10-04-2023 Aspirin (Adult Low Dose Aspirin) 81 mg tablet,delayed release (DR/EC) Active 81 MG PO Daily October 03, 2023 11:00pm atorvastatin 40 mg oral tablet (11 sources) HMG-CoA Reductase Inhibitor Start: 11-25-2023 End: 11-24-2024 take 1 tablet by mouth once daily atorvastatin (Lipitor) 40 mg tablet Indications: Mixed hyperlipidemia Take 1 tablet (40 mg) by mouth once daily. 90 tablet 3 11/25/2023 11/24/2024 Active Start: 10-04-2023 End: 11-25-2023 take 1 tablet by mouth once daily at bedtime Atorvastatin 20 mg tablet Active 20 MG PO Daily at bedtime October 03, 2023 11:00pm cholecalciferol 0.01 mg oral tablet (9 sources) Vitamin D Start: 10-06-2023 Cholecalcifero l (Vitamin D3) (Delta D3) 10 mcg (400 unit) tablet Active 50 MCG PO Daily October 05, 2023 11:00pm End: 08-07-2024 take 5 capsules by mouth once daily cholecalciferol (Vitamin D3) 400 unit capsule Take 5 capsules (50 mcg) by mouth once daily. 08/07/2024 Discontinued (Therapy completed) clopidogrel 75 mg oral tablet (3 sources) P2Y12 Platelet Inhibitor Start: 11-01-2023 End: 10-31-2024 take 1 tablet by mouth once daily clopidogrel (Plavix) 75 mg tablet Indications: Status post angioplasty with stent Take 1 tablet (75 mg) by mouth once daily. 90 tablet 3 11/01/2023 10/31/2024 Active lisinopril 2.5 mg oral tablet (1 source) Angiotensin Converting Enzyme Inhibitor Start: 08-07-2024 End: 08-07-2025 take 1 tablet by mouth once daily lisinopril 2.5 mg tablet Indications: Single vessel coronary artery disease Take 1 tablet (2.5 mg) by mouth once daily. 90 tablet 3 08/07/2024 08/07/2025 Active melatonin 3 mg oral tablet (4 sources) melatonin (Mariana in) 3 mg tablet Take 1 tablet (3 mg) by mouth as needed at bedtime for sleep. Active 24 hr metoprolol succinate 25 mg extended release oral tablet (11 sources) beta-Adrenergic Jose Start: 09-29-2023 End: 09-28-2024 take 1 tablet by mouth once daily metoprolol succinate XL (Toprol-XL) 25 mg 24 hr tablet Indications: Exertional angina ([facility]) , Essential hypertension Take 1 tablet (25 mg) by mouth once daily. Do not crush or chew. 90 tablet 3 09/29/2023 09/28/2024 Active Multivitamin preparation (3 sources) Start: 10-06-2023 take 1 tablet by mouth once daily Multivitamin Active 1 TAB PO Daily October 06, 2023 12:00am multivitamin tablet (4 sources) take 1 tablet by mouth once daily multivitamin tablet Take 1 tablet by mouth once daily. Active Multivitamin tablet (2 sources) Start: 10-06-2023 take 1 tablet by mouth once daily Multivitamin tablet Active 1 TAB PO Daily October 05, 2023 11:00pm nitroglycerin 0.4 mg sublingual tablet (10 sources) Nitrate Vasodilator Start: 09-29-2023 End: 09-28-2024 nitroglycerin (Nitrostat) 0.4 mg SL tablet Indications: Exertional angina (CMS-HCC) , Dyspnea on exertion , Abnormal stress test Place 1 tablet (0.4 mg) under the tongue every 5 minutes if needed for chest pain. May repeat dose every 5 minutes for up to 3 doses total. 100 tablet 11 09/29/2023 09/28/2024 Active ticagrelor 90 mg oral tablet (5 sources) Start: 10-06-2023 take 1 tablet by mouth twice daily Ticagrelor (Brilinta) 90 mg tablet Active 90 MG PO Twice daily 180 October 05, 2023 11:00pm Completed/Discontinued Medications Medication Drug Class(es) Dates Sig (Normalized) Sig (Original) acetaminophen 325 mg / oxyCODONE hydrochloride 5 mg oral tablet (8 sources) Opioid Agonist Start: 12-02-2018 End: 10-04-2023 take 1 tablet by mouth every six hours as needed for pain Oxycodone-Acetamin ophen (Percocet) 5-325 mg tablet Discontinued 1 TAB PO Q6H as needed for pain 10 December 02, 2018 October 04, 2023 7:37am rivaroxaban 15 mg oral tablet (8 sources) Factor Xa Inhibitor Start: 12-02-2018 End: 10-04-2023 take 1 tablet by mouth twice daily at mealtime Rivaroxaban (Xarelto) 15 mg tablet Discontinued 15 MG PO Twice daily 42 December 01, 2018 11:00pm October 04, 2023 7:38am administer with meals Problems Active Problems Problem Classification Problem Date Documented Da te Episodic/Chronic Coronary atherosclerosis and other heart disease (20 sources) Exercise-induced angina; Translations: [Exertional angina ([facility])] Onset: 09-29-2023 Resolved: 08-07-2024 09-29-2023 Chronic Disorders of lipid metabolism (18 sources) Mixed hyperlipidemia; Translations: [Mixed hyperlipidemia] Onset: 09-29-2023 09-29-2023 Chronic Essential hypertension (20 sources) Essential hypertension; Translations: [Essential (primary) hypertension] Onset: 09-29-2023 09-29-2023 Chronic Other lower respiratory disease (8 sources) Dyspnea on exertion; Translations: [Other forms of dyspnea] Onset: 09-29-2023 09-29-2023 Episodic Other lower respiratory disease (1 source) Chronic cough; Translations: [Chronic cough] Onset: 07-24-2024 Episodic Other nutritional; endocrine; and metabolic disorders (7 sources) Body mass index 30+ - obesity; Translations: [Body mass index (BMI) 32.0-32.9, adult] Onset: 09-29-2023 09-29-2023 Chronic Other nutritional; endocrine; and metabolic disorders (2 sources) Body mass index (BMI) 32.0-32.9, adult; Translations: [Body mass index (BMI) 32.0-32.9, adult] Onset: 08-07-2024 Chronic Other nutritional; endocrine; and metabolic disorders (2 sources) Body mass index (BMI) 31.0-31.9, adult; Translations: [Body mass index (BMI) 31.0-31.9, adult] Onset: 11-25-2023 Chronic Phlebitis; thrombophlebitis and thromboembolism (8 sources) Deep venous thrombosis of lower extremity; Translations: [Acute embolism and thrombosis of unspecified deep veins of right lower extremity] 12-02-2018 Episodic Past or Other Problems Problem Classification Problem Date Documented Date Episodic/Chronic Nonspecific chest pain (2 sources) Chest pain, unspecified; Translations: [Other chest pain] Onset: 09-07-2023 Episodic Other lower respiratory disease (4 sources) Other forms of dyspnea; Translations: [Other forms of dyspnea] Onset: 09-29-2023 Episodic Other screening for suspected conditions (not mental disorders or infectious disease) (20 sources) Cardiovascular stress test abnormal; Translations: [Abnormal result of other cardiovascular function study] Onset: 09-29-2023 09-29-2023 Episodic Residual codes; unclassified (1 source) Contact with and (suspected) exposure to potentially hazardous body fluids; Translations: [Contact with and (suspected) exposure to potentially hazardous body fluids] Onset: 10-07-2023 Episodic Screening and history of mental health and substance abuse codes (9 sources) Ex-smoker; Translations: [Personal history of nicotine dependence] Onset: 09-29-2023 09-29-2023 Episodic Unclassified (4 sources) Onset: 09-29-2023 Resolved: 08-07-2024 09-29-2023 Results Test Name Value Interpretation Reference Range Facility Alanine aminotransferase [En zymatic activity/volume] in Serum or PlasmaOrdered By: Neva Almaguer on 07-28-2024 ALT [Catalytic activity/Vol] Alanine aminotransferase [Enzymatic activity/volume] in Serum or Plasma [facility] Albumin [Mass/volume] in Ser um or Plasma by Bromocresol green (BCG) dye binding methoOrdered By: Neva Almaguer on 07-28-2024 Albumin BCG dye [Mass/Vol] Albumin [Mass/volume] in Serum or Plasma by Bromocresol green (BCG) dye binding metho 3.5-5.7 [facility] Alkaline phosphatase [Enzyma tic activity/volume] in Serum or PlasmaOrdered By: Neva Almaguer on 07-28-2024 ALP [Catalytic activity/Vol] Alkaline phosphatase [Enzymatic activity/volume] in Serum or Plasma 34-104 [facility] Aspartate aminotransferase [ Enzymatic activity/volume] in Serum or PlasmaOrdered By: Neva Almaguer on 07-28-2024 AST [Catalytic activity/Vol] Aspartate aminotransferase [Enzymatic activity/volume] in Serum or Plasma 13-39 [facility] Bilirubin.total [Mass/volume ] in Serum or PlasmaOrdered By: Neva Almaguer on 07-28-2024 Bilirubin [Mass/Vol] Bilirubin.total [Mass/volume] in Serum or Plasma 0.3-1.0 [facility] Calcium [Mass/volume] in Ser um or PlasmaOrdered By: Neva Almaguer on 07-28-2024 Calcium [Mass/Vol] Calcium [Mass/volume ] in Serum or Plasma 8.6-10.3 [facility] Carbon dioxide, total [Moles /volume] in Serum or PlasmaOrdered By: Neva Almaguer on 07-28-2024 CO2 [Moles/Vol] Carbon dioxide, tota l [Moles/volume] in Serum or Plasma High 21.0-31.0 [facility] Chloride [Moles/volume] in S umair or PlasmaOrdered By: Neva Almaguer 07-28-2024 Chloride [Moles/Vol] Chloride [Moles/vol ume] in Serum or Plasma 98-107 [facility] Cholesterol [Mass/volume] in Serum or PlasmaOrdered By: Neva Almaguer on 07-28-2024 Cholesterol [Mass/Vol] Cholesterol [Mass /volume] in Serum or Plasma 140-200 [facility] Comment on above: Chol less than 200 m g/dl low riskChol 201-239 mg/dl borderline riskChol 240 mg/dl and greater high risk Cholesterol in HDL [Mass/vol ume] in Serum or PlasmaOrdered By: Neva Almaguer on 07-28-2024 Cholesterol in HDL [Mass/Vol] Serum or plasma high density lipoprotein (HDL) cholesterol measurement 23-92 [facility] Comment on above: HDL CHOL ATP-III CLA SSIFICATION Cardiovascular RiskHDL > or equal to 60 mg/dL LOWHDL < 40 mg/dL HIGH Cholesterol in LDL Calc [Mas s/Vol]Ordered By: Neva Almaguer on 07-28-2024 Cholesterol in LDL [Mass/Vol] Cholesterol in LDL [Mass/volume] in Serum or Plasma by calculation 0-100 [facility] Comment on above: LDL ATP III CLASSIFI CATIONLDL less than 100 mg/dL OptimalLDL 100-129 mg/dL Near or above optimalLDL 130-159 mg/dL Borderline highLDL 160-189 mg/dL HighLDL greater than 189 mg/dL Very high Cholesterol in VLDL Calc [Ma ss/Vol]Ordered By: Neva Almaguer on 07-28-2024 Cholesterol in VLDL [Mass/Vol] Cholesterol in VLDL [Mass/volume] in Serum or Plasma by calculation [facility] Comprehensive Metabolic Pane martha 07-28-2024 Albumin [Mass/Vol] 4.3 g/dL Normal 3.5-5.7 [facility] Comment on above: Performed By: #### P SAS, CBC, LIPID, CMP #### [facility] [address] Albumin/Globulin [Mass ratio] 1.9 {ratio} Normal [facility] Comment on above: Performed By: #### P SAS, CBC, LIPID, CMP #### [facility] [address] [place] [address] [place] ALP [Catalytic activity/Vol] 50 U/L Normal 34-104 [facility] Comment on above: Performed By: #### P SAS, CBC, LIPID, CMP #### [facility] [address] [place] [id number] [place] ALT [Catalytic activity/Vol] 20 U/L Normal 7-52 [facility] Comment on above: Performed By: #### P SAS, CBC, LIPID, CMP #### [facility] [address] [place] [address] [place] Anion gap [Moles/Vol] 7.1 mmol/L Normal 6.0-15.0 [facility] Comment on above: Performed By: #### P SAS, CBC, LIPID, CMP #### [address] AST [Catalytic activity/Vol] 16 U/L Normal 13-39 [facility] Comment on above: Performed By: #### P SAS, CBC, LIPID, CMP #### [address] Bilirubin [Mass/Vol] 0.8 mg/dL Normal 0.3-1.0 [facility] Comment on above: Performed By: #### P SAS, CBC, LIPID, CMP #### [address] Calcium [Mass/Vol] 9.5 mg/dL Normal 8.6-10.3 [facility] Comment on above: Performed By: #### P SAS, CBC, LIPID, CMP #### [address] Chloride [Moles/Vol] 103 mmol/L Normal 98-107 [facility] Comment on above: Performed By: #### P SAS, CBC, LIPID, CMP #### [place] [address] [place] CO2 [Moles/Vol] 36.1 mmol/L High 21.0-31.0 [facility] Comment on above: Performed By: #### P SAS, CBC, LIPID, CMP #### [place] [address] [place] Creatinine [Mass/Vol] 0.91 mg/dL Normal 0.70-1.30 [facility] Comment on above: Performed By: #### P SAS, CBC, LIPID, CMP #### [place] [address] [place] GFR/1.73 sq M.predicted MDRD (S/P/Bld) [Vol rate/Area] mL/min/{1.73_m2} Normal [facility] Comment on above: Performed By: #### P SAS, CBC, LIPID, CMP #### [address] Globulin (S) [Mass/Vol] 2.3 g/dL Normal [facility] Comment on above: Performed By: #### P SAS, CBC, LIPID, CMP #### [address] Glucose [Mass/Vol] 83 mg/dL Normal 70-100 [facility] Comment on above: Result Comment: [place] Glucose Reference Range is dependent on time and content of last meal. Glucose of more than 200 mg/dL in a nonstressed, ambulatory subject supports the diagnosis of Diabetes Mellitus. ADA recommended reference range Performed By: #### P SAS, CBC, LIPID, CMP #### [address] Potassium [Moles/Vol] 4.2 mmol/L Normal 3.5-5.1 [facility] Comment on above: Performed By: #### P SAS, CBC, LIPID, CMP #### [address] Protein [Mass/Vol] 6.6 g/dL Normal 6.4-8.9 [facility] Comment on above: Performed By: #### P SAS, CBC, LIPID, CMP #### [address] Sodium [Moles/Vol] 142 mmol/L Normal 136-145 [facility] Comment on above: Performed By: #### P SAS, CBC, LIPID, CMP #### [address] Urea nitrogen [Mass/Vol] 25 mg/dL Normal 7-25 [facility] Comment on above: Performed By: #### P SAS, CBC, LIPID, CMP #### [place] [address] [place] Creatinine [Mass/volume] in Serum or PlasmaOrdered By: Neva Almaguer on 07-28-2024 Creatinine [Mass/Vol] Creatinine [Mass/v olume] in Serum or Plasma 0.70-1.30 [facility] Globulin Calc (S) [Mass/Vol] Ordered By: Neva Almaguer on 07-28-2024 Globulin (S) [Mass/Vol] Serum globulin measurement by calculation (mass/volume) [facility] Glucose [Mass/volume] in Ser um or PlasmaOrdered By: Neva Almaguer on 07-28-2024 Glucose [Mass/Vol] Glucose [Mass/volume ] in Serum or Plasma 70-100 [facility] Comment on above: ADA recommended refe rence rangeRandom Glucose Reference Range is dependent on time and content of last meal. Glucose of more than 200 mg/dL in a nonstressed, ambulatory subject supports the diagnosis of Diabetes Mellitus. Lipid Panelon 07-28-2024 Cholesterol [Mass/Vol] 153 mg/dL Normal 140-200 [facility] Comment on above: Result Comment: Chol less than 200 mg/dl low risk Chol 201-239 mg/dl borderline risk Chol 240 mg/dl and greater high risk Performed By: #### P SAS, CBC, LIPID, CMP #### [facility] [address] Cholesterol in HDL [Mass/Vol] 57 mg/dL Normal 23-92 [facility] Comment on above: Result Comment: HDL CHOL ATP-III CLASSIFICATION Cardiovascular Risk HDL > or equal to 60 mg/dL LOW HDL < 40 mg/dL HIGH Performed By: #### P SAS, CBC, LIPID, CMP #### [facility] [address] Cholesterol.total/Chol esterol in HDL [Mass ratio] 2.7 {ratio} Normal <5.0 [facility] Comment on above: Result Comment: PERF ORMED BY: [facility] [address] [place] [address] PATHOLOGIST PSYCHI[employer] JANEE JIANG M.D. Performed By: #### P SAS, CBC, LIPID, CMP #### [facility] [address] LDL Cholesterol,Calculated 71 mg/dL Normal 0-100 [facility] Comment on above: Result Comment: LDL ATP III CLASSIFICATION LDL less than 100 mg/dL Optimal LDL 100-129 mg/dL Near or above optimal LDL 130-159 mg/dL Borderline high LDL 160-189 mg/dL High LDL greater than 189 mg/dL Very high Performed By: #### P SAS, CBC, LIPID, CMP #### [facility] [address] Triglyceride w/Reflex 127 mg/dL Normal 0-149 [facility] Comment on above: Result Comment: TRIG ATP III CLASSIFICATION TRIG less than 150 mg/dL Normal TRIG 150-199 mg/dL Borderline high TRIG 200-500 mg/dL High TRIG greater than 500 mg/dL Very high Standard traceable to the Center for Disease Conrtrol and Prevention (CDC) test method. Performed By: #### P SAS, CBC, LIPID, CMP #### [facility] [address] VLDL CHOLESTEROL 25 mg/dL Normal [facility] Comment on above: Performed By: #### P SAS, CBC, LIPID, CMP #### [facility] [address] No Panel InformationOrdered By: Neva Almaguer on 07-28-2024 Estimated GFR (CKD-EPI) > 60.0 mL/Min [facility] Creatinine Clearance (Chem N/A [facility] Potassium [Moles/volume] in Serum or PlasmaOrdered By: Neva Almaguer on 07-28-2024 Potassium [Moles/Vol] Potassium [Moles/v olume] in Serum or Plasma 3.5-5.1 [facility] Protein [Mass/volume] in Ser um or PlasmaOrdered By: Neva Almaguer on 07-28-2024 Protein [Mass/Vol] Protein [Mass/volume ] in Serum or Plasma 6.4-8.9 [facility] Serum or plasma albumin/glob ulin mass ratioOrdered By: Neva Almaguer on 07-28-2024 Albumin/Globulin [Mass ratio] Serum or plasma albumin/globulin mass ratio [facility] Serum or plasma anion gap de terminationOrdered By: Neva Almaguer on 07-28-2024 Anion gap [Moles/Vol] Serum or plasma an ion gap determination 6.0-15.0 [facility] Serum or plasma total choles terol/high density lipoprotein (HDL) cholesterol mass ratOrdered By: Neva Almaguer on 07-28-2024 Cholesterol.total/Chol esterol in HDL [Mass ratio] Serum or plasma total cholesterol/high density lipoprotein (HDL) cholesterol mass rat <5.0 [facility] Sodium [Moles/volume] in Ser um or PlasmaOrdered By: Neva Almaguer on 07-28-2024 Sodium [Moles/Vol] Sodium [Moles/volume ] in Serum or Plasma 136-145 [facility] Triglyceride [Mass/volume] i n Serum or PlasmaOrdered By: Neva Almaguer on 07-28-2024 Triglyceride [Mass/Vol] Triglyceride [Mass/volume] in Serum or Plasma 0-149 [facility] Comment on above: TRIG ATP III CLASSIF ICATIONTRIG less than 150 mg/dL NormalTRIG 150-199 mg/dL Borderline highTRIG 200-500 mg/dL High TRIG greater than 500 mg/dL Very highStandard traceable to the Center for Disease Conrtrol and Prevention (CDC) test method. Urea nitrogen [Mass/volume] in Serum or PlasmaOrdered By: Neva Almaguer on 07-28-2024 Urea nitrogen [Mass/Vol] Urea nitrogen [Mass/volume] in Serum or Plasma 7-25 [facility] X-ray reportOrdered By: Osorio Hernandez on 07-24-2024 Study report [facility] [place] [address] XRay Report Signed Patient: Elvin Fontaine MR#: [id number] : 1955 Acct:[id number] Age/Sex: 68 / M ADM Date: 5 Loc: XD Room: Type: [facility] Attending Dr: Barrera Arriola DO Copies to: Barrera Arriola DO~ Ordering Provider: Barrera Arriola DO Date of Service: 07/24/24 XR/XR chest 2V*: WHEEZE CHRONIC COUGH Plain film chest and two-view HISTORY: Wheezing chronic cough. Hemoptysis. COMPARISON: 09/07/2023 FINDINGS: SUPPORT DEVICES: None POSTSURGICAL CHANGES: None HEART: Within normal limits PULMONARY AMARI: Within normal limits MEDIASTINUM: Unremarkable LUNGS AND PLEURA: No acute lung process, pleural effusion or pneumothorax identified. Right basilar scarring/atelectasis. Moderate right hemidiaphragm elevation. BONY STRUCTURES: Intact ADDITIONAL FINDINGS None XR/XR chest 2V* IMPRESSION: No acute process. Impression dictated by: Keny Hernandez M.D.07/24/2024 2:21 PM Dictation Location: RADIO-PC-23 Transcribed By: KANE 07/24/24 142 Dictated By: Keny Hernandez DO 07/24/24 142 Signed By: 07/24/24 142 [facility] XR chest 2V*on 07-24-2024 XR chest 2V* [facility] [place] [address] [place] [address] XRay Report Signed Patient: Elvin Fontaine MR#: [id number] 21 : 1955 Acct:[id number] Age/Sex: 68 / M ADM Date: 07/24/24 Loc: XD Room: Type: [facility] Attending Dr: Barrera Arriola DO Copies to: Barrera Arriola DO Ordering Provider: Barrera Arriola DO Date of Service: 07/24/24 XR/XR chest 2V*: WHEEZE CHRONIC COUGH Plain film chest and two-view HISTORY: Wheezing chronic cough. Hemoptysis. COMPARISON: 09/07/2023 FINDINGS: SUPPORT DEVICES: None POSTSURGICAL CHANGES: None HEART: Within normal limits PULMONARY AMARI: Within normal limits MEDIASTINUM: Unremarkable LUNGS AND PLEURA: No acute lung process, pleural effusion or pneumothorax identified. Right basilar scarring/atelectasis. Moderate right hemidiaphragm elevation. BONY STRUCTURES: Intact ADDITIONAL FINDINGS None XR/XR chest 2V* IMPRESSION: No acute process. Impression dictated by: Keny Hernandez M.D.07/24/2024 2:21 PM Dictation Location: RADIO-PC-23 Transcribed By: KANE 07/24/24 142 Dictated By: Keny Hernandez DO 07/24/24 142 Signed By: 07/24/24 1421 [facility] TRANSTHORACIC ECHO (TTE) COM PLETEon 11-01-2023 TRANSTHORACIC ECHO (TTE) COMPLETE [facility] [address], [address], [place] [address] TRANSTHORACIC ECHOCARDIOGRAM REPORT Patient Name: ELVIN FONTAINE Reading Physician: [id number] Neva Almaguer MD Study Date: 11/01/2023 Ordering Provider: [id number] NEVA ALMAGUER MRN/PID: [id number] Fellow: Nurse: Date of /Age: 3 1955 / 68 years Long Term: Justa Mueller RDCS RVLucero Gender: M Additional Staff: Height: 175.26 cm Admit Date: Weight: 98.88 kg Admission Status: BSA / BMI: 2.14 m2 / 32.19 kg/m2 Department Location: [facility] Blood Pressure: 140 /86 mmHg Study Type: TRANSTHORACIC ECHO (TTE) COMPLETE Diagnosis/ICD: Other forms of angina pectoris-I20.8; Other forms of dyspnea-R06.09; Abnormal result of other cardiovascular function study-R94.39; Essential (primary) hypertension-I10 Indication: PTCA-10/06/23, Hyperlipidemia, Former Smoker, Overweight CPT Codes: Echo Complete w Full Doppler-58803 Study Detail: The following Echo studies were performed: 2D, M-Mode, Doppler and color flow. PHYSICIAN INTERPRETATION: Left Ventricle: Left ventricular systolic function is normal, with an estimated ejection fraction of 60%. There are no regional wall motion abnormalities. The left ventricular cavity size is normal. Spectral Doppler shows an impaired relaxation pattern of left ventricular diastolic filling. Left Atrium: The left atrium is normal in size. Right Ventricle: The right ventricle is normal in size. There is normal right ventricular global systolic function. Right Atrium: The right atrium is normal in size. Aortic Valve: The aortic valve appears structurally normal. There is no evidence of aortic valve regurgitation. The peak instantaneous gradient of the aortic valve is 5.0 mmHg. The mean gradient of the aortic valve is 3.0 mmHg. Mitral Valve: The mitral valve is normal in structure. There is trace mitral valve regurgitation. Tricuspid Valve: The tricuspid valve is structurally normal. No evidence of tricuspid regurgitation. Pulmonic Valve: The pulmonic valve is structurally normal. There is no indication of pulmonic valve regurgitation. Pericardium: There is no pericardial effusion noted. Aorta: The aortic root is normal. CONCLUSIONS: 1. Left ventricular systolic function is normal with a 60% estimated ejection fraction. 2. Spectral Doppler shows an impaired relaxation pattern of left ventricular diastolic filling. 3. No previous study available for comparison. QUANTITATIVE DATA SUMMARY: 2D MEASUREMENTS: Normal Ranges: Ao Root d: 3.20 cm (2.0-3.7cm) LAs: 4.10 cm (2.7-4.0cm) RVIDd: 3.41 cm (0.9-3.6cm) IVSd: 1.17 cm (0.6-1.1cm) LVPWd: 0.90 cm (0.6-1.1cm) LVIDd: 5.08 cm (3.9-5.9cm) LVIDs: 3.05 cm LV Mass Index: 91.1 g/m2 LV % FS 40.0 % LV SYSTOLIC FUNCTION BY 2D PLANIMETRY (MOD): Normal Ranges: EF-A4C View: 60.9 % (>=55%) LV DIASTOLIC FUNCTION: Normal Ranges: MV Peak E: 0.73 m/s (0.7-1.2 m/s) MV Peak A: 0.89 m/s (0.42-0.7 m/s) E/A Ratio: 0.82 (1.0-2.2) MV lateral e' 0.10 m/s MV medial e' 0.06 m/s E/e' Ratio: 7.30 (<8.0) MITRAL VALVE: Normal Ranges: MV Vmax: 0.88 m/s (<=1.3m/s) MV peak P.1 mmHg (<5mmHg) MV mean P.0 mmHg (<48mmHg) AORTIC VALVE: Normal Ranges: AoV Vmax: 1.12 m/s (<=1.7m/s) AoV Peak P.0 mmHg (<20mmHg) AoV Mean P.0 mmHg (1.7-11.5mmHg) LVOT Max Kaiden: 1.02 m/s (<=1.1m/s) AoV VTI: 21.80 cm (18-25cm) LVOT VTI: 20.30 cm LVOT Diameter: 2.30 cm (1.8-2.4cm) AoV Area, VTI: 3.87 cm2 (2.5-5.5cm2) AoV Area,Vmax: 3.78 cm2 (2.5-4.5cm2) AoV Dimensionless Index: 0.93 TRICUSPID VALVE/RVSP: Normal Ranges: Peak TR Velocity: 2.01 m/s RV Syst Pressure: 19.2 mmHg (< 30mmHg) PULMONIC VALVE: Normal Ranges: PV Max Kaiden: 0.5 m/s (0.6-0.9m/s) PV Max P.1 mmHg PIEDV: 1.71 m/s PADP: 14.7 mmHg [id number] Neva Almaguer MD Electronically signed on 11/03/2023 at 12:10:38 PM Final [facility] HIV Screen ([facility])on HIV Screen ([facility]) Non-Reactive Normal Nonreactive [facility] Comment on above: Order Comment: 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 Which is this, the Source or the Person with the Exposure?: SOURCE Source Medical Record: [id number] Exposed Result Comment: PERF ORMED BY: [place] [address] PATHOLOGIST PSYCHIATRIC CNS MIGUEL RODRIGUEZ M.D. 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 Which is this, the Source or the Person with the Exposure?: SOURCE Source Medical Record: [id number] Exposed Performed By: #### P SAS, CBC, LIPID, CMP #### [facility] [address] [place] [address] Interpretation Hepatitis C Normal . 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 Which is this, the Source or the Person with the Exposure?: SOURCE Source Medical Record: [id number] Exposed Result Comment: Not infected with HCV unless early or acute infection is suspected (which may be delayed in an immunocompromised individual), or other evidence exists to indicate HCV infection. Performed By: #### P SAS, CBC, LIPID, CMP #### [address] Hepatitis B Surface Antibody on 10-07-2023 Hepatitis B Surface Antibody Reactive Normal . 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 Which is this, the Source or the Person with the Exposure?: SOURCE Source Medical Record: [id number] Exposed Result Comment: Perf ormed at: CB - [facility] [address] [id number] Brushing Machine Operator: Mahin Landa PhD, Phone: [phone] PERFORMED BY: [place] [address] PATHOLOGIST PSYCHIATRIC CNS MIGUEL RODRIGUEZ M.D. Performed By: #### P SAS, CBC, LIPID, CMP #### [address] ECG 12 lead ECGon 10-06-2023 ECG 12 lead ECG [facility] [place] [address] Electrocardiograph Report Signed Patient: Elvin Fontaine MR#: [id number] 21 : 1955 Acct:[id number] Age/Sex: 68 / M ADM Date: 10/06/23 Loc: Room: [facility] Attending Dr: Neva Almaguer MD Ordering Provider: Esdras Blas DO Date of Service: 10/06/23 ECG/ECG 12 lead ECG: Post Angioplasty Procedure Copies to: Test Reason : Blood Pressure : / mmHG Vent. Rate : 074 BPM Atrial Rate : 074 BPM P-R Int : 184 ms QRS Dur : 094 ms QT Int : 414 ms P-R-T Axes : 061 006 041 degrees QTc Int : 459 ms Normal sinus rhythm Nonspecific T wave abnormality Abnormal ECG No previous ECGs available Confirmed by Elvia Lofton ([id number]) on 10/07/2023 5:32:21 PM Referred By: Electronically Signed By:Elvia Lofton Transcribed By: MUS Signed By Elvia Lofton MD 4 1732 Normal [facility] Activated partial thrombopla stin time (aPTT) in platelet poor plasma by coagulation aOrdered By: Neva Almaguer on 10-04-2023 aPTT Coag (PPP) [Time] 36.3 s 25.1-36.5 [facility] Comment on above: A hematocrit value g reater than 55% may lead to inaccurate results in coagulation testing. Patients having hematocrit values >55% require a special collection tube for coagulation studies. Please contact the laboratory at [phone] for redraw instructions. Automated basophil %Ordered By: Neva Almaguer on 10-04-2023 Basophils/100 WBC (Bld) 1.3 % Normal . [facility] Comment on above: Performed By: #### P P, CREAT, CBC, LYTES, BUN #### [address] Automated basophil countOrde red By: Neva Almaguer on 04-22-2024 Basophils (Bld) [#/Vol] 0.1 10*3/uL Normal 0.0-0.2 [facility] Comment on above: Result Comment: PERF ORMED BY: [place] [address] PATHOLOGIST PSYCHIATRIC CNS MIGUEL RODRIGUEZ M.D. Performed By: #### P P, CREAT, CBC, LYTES, BUN #### [address] Automated blood monocyte cou ntOrdered By: Neva Almaguer on 10-04-2023 Monocytes (Bld) [#/Vol] 0.7 10*3/uL Normal 0.0-0.8 [facility] Comment on above: Performed By: #### P P, CREAT, CBC, LYTES, BUN #### [address] Automated eosinophil %Ordere d By: Neva Almaguer on 10-04-2023 Eosinophils/100 WBC (Bld) 3.8 % Normal . [facility] Comment on above: Performed By: #### P P, CREAT, CBC, LYTES, BUN #### [address] Automated eosinophil countOr dered By: Neva Almaguer on 10-04-2023 Eosinophils (Bld) [#/Vol] 0.2 10*3/uL Normal 0.0-0.45 [facility] Comment on above: Performed By: #### P P, CREAT, CBC, LYTES, BUN #### [address] Automated monocyte %Ordered By: Neva Almaguer on 10-04-2023 Monocytes/100 WBC (Bld) 11.7 % Normal . [facility] Comment on above: Performed By: #### P P, CREAT, CBC, LYTES, BUN #### [address] Automated neutrophil %Ordere d By: Neva Almaguer on 10-04-2023 Neutrophils/100 WBC (Bld) 52.2 % Normal . [facility] Comment on above: Performed By: #### P P, CREAT, CBC, LYTES, BUN #### [address] Carbon dioxide, total [Moles /volume] in Serum or PlasmaOrdered By: Neva Almaguer on 10-04-2023 CO2 [Moles/Vol] 31.9 mmol/L High 21.0-31.0 [facility] Comment on above: Performed By: #### P SAS, CBC, LIPID, CMP #### [address] Chloride [Moles/volume] in S umair or PlasmaOrdered By: Neva Almaguer on 10-04-2023 Chloride [Moles/Vol] 103 mmol/L Normal 98-107 [facility] Comment on above: Performed By: #### P SAS, CBC, LIPID, CMP #### [address] Coagulation Profileon 2023 aPTT Coag (Bld) [Time] 36.3 s Normal 25.1-36.5 [facility] Comment on above: Result Comment: A he matocrit value greater than 55% may lead to inaccurate results in coagulation testing. Patients having hematocrit values >55% require a special collection tube for coagulation studies. Please contact the laboratory at [phone] for redraw instructions. PERFORMED BY: [place] [address] PATHOLOGIST PSYCHIATRIC CNS MIGUEL RODRIGUEZ M.D. Performed By: #### P SAS, CBC, LIPID, CMP #### [address] Complete Blood Count Auto Di ffon 10-04-2023 Mean Corpuscular HGB Conc 33.5 g/dL Normal 32.5-35.6 [facility] Comment on above: Performed By: #### P P, CREAT, CBC, LYTES, BUN #### [address] NRBC% 0.1 /100{WBC} Normal 0-0.5 [facility] Comment on above: Performed By: #### P P, CREAT, CBC, LYTES, BUN #### [address] Creatinineon 10-04-2023 GFR/1.73 sq M.predicted MDRD (S/P/Bld) [Vol rate/Area] mL/min/{1.73_m2} Normal [facility] Comment on above: Result Comment: PERF ORMED BY: [place] [address] PATHOLOGIST PSYCHIATRIC CNS MIGUEL RODRIGUEZ M.D. Performed By: #### P SAS, CBC, LIPID, CMP #### [address] Creatinine [Mass/volume] in Serum or PlasmaOrdered By: Neva Almaguer on 10-04-2023 Creatinine [Mass/Vol] 0.84 mg/dL Normal 0.70-1.30 [facility] Comment on above: Performed By: #### P SAS, CBC, LIPID, CMP #### [address] Erythrocyte distribution wid th [Ratio] by Automated countOrdered By: Neva Almaguer on 10-04-2023 Erythrocyte distribution width (RBC) [Ratio] 13.5 % Normal 12.0-14.8 [facility] Comment on above: Performed By: #### P P, CREAT, CBC, LYTES, BUN #### [address] Erythrocytes [#/volume] in B lood by Automated countOrdered By: Neva Almaguer on 10-04-2023 RBC (Bld) [#/Vol] 5.09 10*6/uL Normal 3.90-5.60 [facility] Comment on above: Performed By: #### P P, CREAT, CBC, LYTES, BUN #### [facility] [address] Hematocrit [Volume Fraction] of Blood by Automated countOrdered By: Neva Almaguer on 10-04-2023 Hematocrit (Bld) [Volume fraction] 46.9 % Normal 38.8-50.0 [facility] Comment on above: Performed By: #### P P, CREAT, CBC, LYTES, BUN #### [address] Hemoglobin [Mass/volume] in BloodOrdered By: Neva Almaguer on 10-04-2023 Hemoglobin (Bld) [Mass/Vol] 15.7 g/dL Normal 13.0-17.0 [facility] Comment on above: Performed By: #### P P, CREAT, CBC, LYTES, BUN #### [address] INR in Platelet poor plasma by Coagulation assayOrdered By: Neva Almaguer on 10-04-2023 INR Coag (PPP) [Relative time] 0.9 {INR} Normal [facility] Comment on above: INR Therapeutic Rang e A) Pre- and Peroperative OAT started two weeks before surgery. NOT HIP SURGERY: 1.5 - 2.5 HIP SURGERY: 2 - 3B) Primary and secondary prevention of venous THROMBOSIS: 2 - 3C) Active venous thrombosis, pulmonary embolismand prevention of recurrent venous thrombosis: 2 - 3D) Prevention of arterial thromboembolismincluding patients with mechanical heart valves: 3 - 4.5 Result Comment: INR Therapeutic Range A) Pre- and Peroperative OAT started two weeks before surgery. NOT HIP SURGERY: 1.5 - 2.5 HIP SURGERY: 2 - 3 B) Primary and secondary prevention of venous THROMBOSIS: 2 - 3 C) Active venous thrombosis, pulmonary embolism and prevention of recurrent venous thrombosis: 2 - 3 D) Prevention of arterial thromboembolism including patients with mechanical heart valves: 3 - 4.5 Performed By: #### P SAS, CBC, LIPID, CMP #### [place] [address] [place] Leukocytes [#/volume] correc francisco for nucleated erythrocytes in Blood by Automated counOrdered By: Neva Almaguer on 10-04-2023 WBC corrected for nucl RBC Auto (Bld) [#/Vol] 6.0 10*3/uL 4.1-10.5 [facility] Leukocytes [#/volume] in Blo od by Automated countOrdered By: Neva Almaguer on 10-04-2023 WBC (Bld) [#/Vol] 6.0 10*3/uL Normal 4.1-10.5 [facility] Comment on above: Performed By: #### P P, CREAT, CBC, LYTES, BUN #### [address] Lymphocytes [#/volume] in Bl ood by Automated countOrdered By: Neva Almaguer on 10-04-2023 Lymphocytes (Bld) [#/Vol] 1.9 10*3/uL Normal 1.00-4.8 [facility] Comment on above: Performed By: #### P P, CREAT, CBC, LYTES, BUN #### [address] Lymphocytes/100 leukocytes i n Blood by Automated countOrdered By: Neva Almaguer on 10-04-2023 Lymphocytes/100 WBC (Bld) 31.0 % Normal . [facility] Comment on above: Performed By: #### P P, CREAT, CBC, LYTES, BUN #### [address] MCH [Entitic mass] by Automa francisco countOrdered By: Neva Almaguer on 10-04-2023 MCH (RBC) [Entitic mass] 30.9 pg Normal 27.5-35.2 [facility] Comment on above: Performed By: #### P P, CREAT, CBC, LYTES, BUN #### [address] MCHC Auto (RBC) [Mass/Vol]Or dered By: Neva Almaguer on 10-04-2023 MCHC (RBC) [Mass/Vol] 33.5 g/dL 32.5-35.6 [facility] MCV [Entitic volume] by Auto mated countOrdered By: Neva Almaguer on 10-04-2023 MCV (RBC) [Entitic vol] 92.2 fL Normal 83.5-101 [facility] Comment on above: Performed By: #### P P, CREAT, CBC, LYTES, BUN #### [facility] [address] [place] [address] Neutrophils [#/volume] in Bl ood by Automated countOrdered By: Nvea Almaguer on 10-04-2023 Neutrophils (Bld) [#/Vol] 3.2 10*3/uL Normal 1.8-7.7 [facility] Comment on above: Performed By: #### P P, CREAT, CBC, LYTES, BUN #### [facility] [address] [place] [address] No Panel InformationOrdered By: Neva Almaguer on 10-04-2023 Estimated GFR (CKD-EPI) > 60.0 mL/Min [facility] Creatinine Clearance (Chem N/A [facility] Nucleated erythrocytes [Pres ence] in Blood by Automated countOrdered By: Neva Almaguer on 10-04-2023 Nucleated RBC Auto Ql (Bld) 0.1 /100{WBC} 0-0.5 [facility] Platelet mean volume [Entiti c volume] in Blood by Automated countOrdered By: Neva Almaguer on 10-04-2023 Platelet mean volume (Bld) [Entitic vol] 9.4 fL Normal 6.6-10.1 [facility] Comment on above: Performed By: #### P P, CREAT, CBC, LYTES, BUN #### [facility] [address] [place] [address] Platelets [#/volume] in Bloo d by Automated countOrdered By: Neva Almaguer on 10-04-2023 Platelets (Bld) [#/Vol] 186 10*3/uL Normal 150-450 [facility] Comment on above: Performed By: #### P P, CREAT, CBC, LYTES, BUN #### [facility] [address] Potassium [Moles/volume] in Serum or PlasmaOrdered By: Neva Almaguer on 10-04-2023 Potassium [Moles/Vol] 4.6 mmol/L Normal 3.5-5.1 [facility] Comment on above: Performed By: #### P SAS, CBC, LIPID, CMP #### [facility] [address] Prothrombin time (PT)Ordered By: Neva Almaguer on 10-04-2023 PT Coag (PPP) [Time] 10.2 s Normal 9.0-12.9 [facility] Comment on above: A hematocrit value g reater than 55% may lead to inaccurate results in coagulation testing. Patients having hematocrit values >55% require a special collection tube for coagulation studies. Please contact the laboratory at [phone] for redraw instructions. Result Comment: A he matocrit value greater than 55% may lead to inaccurate results in coagulation testing. Patients having hematocrit values >55% require a special collection tube for coagulation studies. Please contact the laboratory at [phone] for redraw instructions. Performed By: #### P SAS, CBC, LIPID, CMP #### [address] Serum or plasma anion gap de terminationOrdered By: Neva Almaguer on 10-04-2023 Anion gap [Moles/Vol] 10.7 mmol/L Normal 6.0-15.0 [facility] Comment on above: Performed By: #### P SAS, CBC, LIPID, CMP #### [address] Sodium [Moles/volume] in Ser um or PlasmaOrdered By: Neva Almaguer on 10-04-2023 Sodium [Moles/Vol] 141 mmol/L Normal 136-145 [facility] Comment on above: Performed By: #### P SAS, CBC, LIPID, CMP #### [facility] [address] [place] [id number] [facility] Urea nitrogen [Mass/volume] in Serum or PlasmaOrdered By: Neva Almaguer on 10-04-2023 Urea nitrogen [Mass/Vol] 22 mg/dL Normal 7-25 [facility] Comment on above: Performed By: #### P SAS, CBC, LIPID, CMP #### [facility] [address] [place] [id number] [facility] ECG 12 Leadon 09-29-2023 [facility] Work Phone: STR cardiac stress/regularon 09-18-2023 STR cardiac stress/regular [facility] [place] [address] [place] [id number] Cardiac Stress Test Signed Patient: Elvin Fontaine MR#: [id number] 21 : 1955 Acct:[id number] Age/Sex: 68 / M ADM Date: 09/17/23 Loc: Room: Type: [facility] Attending Dr: Barrera Arriola DO Copies to: DO Luis Grijalva MD, [facility] Ordering Provider: Barrera Arriola DO Date of Service: 09/17/23 STR/STR cardiac stress/regular: CP ORDERED BY: Dr. Barrera Arriola A 68-year-old patient with chest pain. Resting EKG revealed normal sinus rhythm with isolated PVCs. Heart rate 82 beats per minute. Diffuse ST and T changes, anteroseptal myocardial infarction of undetermined age, was seen. The patient was exercised on a Regulo protocol for 6 minutes and achieved a maximum heart rate 129 beats per minute, which represented 83% of predicted maximum heart rate and a workload of 7 METS. This test ended due to chest pain. In the first stage of Regulo protocol, the patient started experiencing some symptoms of chest pain that reached a grade of 8/10 at peak exercise, forcing the ending of the stress test. There were no ischemic ST segment abnormalities, no cardiac arrhythmias. Within 2 minutes and had symptoms of chest pain resolved. CONCLUSION: 1. Abnormal exercise tolerance test due to development of symptoms of chest pain at low level of exercise, leading to termination of the stress test after achieving only 83% of predicted maximum heart rate, which in general reduces the sensitivity of the stress test in detecting myocardial ischemia, target heart rate is supposed to be 85% of predicted maximum heart rate. 2. Despite symptoms of chest pain, the patient had no ischemic EKG changes and no cardiac arrhythmias, and demonstrated appropriate hemodynamic response to exercise with normal heart rate recovery. If there is a high index of suspicion for ischemic heart disease, a stress imaging study versus cardiac catheterization are recommended. Transcribed By: NTS 09/19/23 1619 Dictated By: Luis Siddiqui MD, [facility] 09/18/23 1826 Signed By: 09/20/23 0911 Normal [facility] Alanine aminotransferase [En zymatic activity/volume] in Serum or PlasmaOrdered By: Barrera Bunting on 09-07-2023 ALT [Catalytic activity/Vol] 59 U/L High 7-52 [facility] Comment on above: Performed By: #### P SAS, CBC, LIPID, CMP #### [facility] [address] [place] [address] [place] Albumin [Mass/volume] in Ser um or Plasma by Bromocresol green (BCG) dye binding methoOrdered By: Barrera Bunting on 09-07-2023 Albumin BCG dye [Mass/Vol] 4.4 g/dL 3.5-5.7 [facility] Alkaline phosphatase [Enzyma tic activity/volume] in Serum or PlasmaOrdered By: Barrera Bunting on 09-07-2023 ALP [Catalytic activity/Vol] 55 U/L Normal 34-104 [facility] Comment on above: Performed By: #### P SAS, CBC, LIPID, CMP #### [facility] [address] [place] [id number] [facility] Aspartate aminotransferase [ Enzymatic activity/volume] in Serum or PlasmaOrdered By: Barrera Bunting on 09-07-2023 AST [Catalytic activity/Vol] 32 U/L Normal 13-39 [facility] Comment on above: Performed By: #### P SAS, CBC, LIPID, CMP #### [facility] [address] [place] [id number] [place] Automated basophil %Ordered By: Barrera Bunting on 09-07-2023 Basophils/100 WBC (Bld) 0.9 % Normal . [facility] Comment on above: Performed By: #### P SAS, CBC, LIPID, CMP #### [address] Automated basophil countOrde red By: Barrera Bunting on 09-07-2023 Basophils (Bld) [#/Vol] 0.0 10*3/uL Normal 0.0-0.2 [facility] Comment on above: Result Comment: PERF ORMED BY: [place] [address] PATHOLOGIST PSYCHIATRIC CNS MIGUEL RODRIGUEZ M.D. Performed By: #### P SAS, CBC, LIPID, CMP #### [address] Automated blood monocyte cou ntOrdered By: Barrera Bunting on 09-07-2023 Monocytes (Bld) [#/Vol] 0.6 10*3/uL Normal 0.0-0.8 [facility] Comment on above: Performed By: #### P SAS, CBC, LIPID, CMP #### [address] Automated eosinophil %Ordere d By: Barrera Bunting on 09-07-2023 Eosinophils/100 WBC (Bld) 2.3 % Normal . [facility] Comment on above: Performed By: #### P SAS, CBC, LIPID, CMP #### [address] Automated eosinophil countOr dered By: Barrera Bunting on 09-07-2023 Eosinophils (Bld) [#/Vol] 0.1 10*3/uL Normal 0.0-0.45 [facility] Comment on above: Performed By: #### P SAS, CBC, LIPID, CMP #### [address] Automated monocyte %Ordered By: Barrera Bunting on 09-07-2023 Monocytes/100 WBC (Bld) 11.2 % Normal . [facility] Comment on above: Performed By: #### P SAS, CBC, LIPID, CMP #### [address] [place] [address] [place] Automated neutrophil %Ordere d By: Barrera Bunting on 09-07-2023 Neutrophils/100 WBC (Bld) 57.6 % Normal . [facility] Comment on above: Performed By: #### P SAS, CBC, LIPID, CMP #### [facility] [address] Bilirubin.total [Mass/volume ] in Serum or PlasmaOrdered By: Barrera Bunting on 09-07-2023 Bilirubin [Mass/Vol] 0.7 mg/dL Normal 0.3-1.0 [facility] Comment on above: Performed By: #### P SAS, CBC, LIPID, CMP #### [facility] [address] [place] [address] Calcium [Mass/volume] in Ser um or PlasmaOrdered By: Barrera Bunting on 09-07-2023 Calcium [Mass/Vol] 9.3 mg/dL Normal 8.6-10.3 [facility] Comment on above: Performed By: #### P SAS, CBC, LIPID, CMP #### [facility] [address] [place] [address] Carbon dioxide, total [Moles /volume] in Serum or PlasmaOrdered By: Barrera Bunting on 09-07-2023 CO2 [Moles/Vol] 33.6 mmol/L High 21.0-31.0 [facility] Comment on above: Performed By: #### P SAS, CBC, LIPID, CMP #### [facility] [address] [place] [address] [place] Chloride [Moles/volume] in S umair or PlasmaOrdered By: Barrera Bunting on 09-07-2023 Chloride [Moles/Vol] 103 mmol/L Normal 98-107 [facility] Comment on above: Performed By: #### P SAS, CBC, LIPID, CMP #### [facility] [address] [place] [address] [place] Cholesterol [Mass/volume] in Serum or PlasmaOrdered By: Barrera Bunting on 09-07-2023 Cholesterol [Mass/Vol] 258 mg/dL High 140-200 [facility] Comment on above: Chol less than 200 m g/dl low riskChol 201-239 mg/dl borderline riskChol 240 mg/dl and greater high risk Result Comment: Chol less than 200 mg/dl low risk Chol 201-239 mg/dl borderline risk Chol 240 mg/dl and greater high risk Performed By: #### P SAS, CBC, LIPID, CMP #### [facility] [address] Cholesterol in LDL Calc [Mas s/Vol]Ordered By: Barrera Arriola on 09-07-2023 Cholesterol in LDL [Mass/Vol] 158 mg/dL 0-100 [facility] Comment on above: LDL ATP III CLASSIFI CATIONLDL less than 100 mg/dL OptimalLDL 100-129 mg/dL Near or above optimalLDL 130-159 mg/dL Borderline highLDL 160-189 mg/dL HighLDL greater than 189 mg/dL Very high Cholesterol in VLDL Calc [Ma ss/Vol]Ordered By: Barrera Arriola on 09-07-2023 Cholesterol in VLDL [Mass/Vol] 58 mg/dL [facility] Complete Blood Count Auto Di ffon 09-07-2023 Mean Corpuscular HGB Conc 33.4 g/dL Normal 32.5-35.6 [facility] Comment on above: Performed By: #### P SAS, CBC, LIPID, CMP #### [address] NRBC% 0.1 /100{WBC} Normal 0-0.5 [facility] Comment on above: Performed By: #### P SAS, CBC, LIPID, CMP #### [facility] [address] [place] [id number] [facility] Comprehensive Metabolic Pane martha 09-07-2023 Albumin [Mass/Vol] 4.4 g/dL Normal 3.5-5.7 [facility] Comment on above: Performed By: #### P SAS, CBC, LIPID, CMP #### [address] GFR/1.73 sq M.predicted MDRD (S/P/Bld) [Vol rate/Area] mL/min/{1.73_m2} Normal [facility] Comment on above: Performed By: #### P SAS, CBC, LIPID, CMP #### [facility] [address] [place] [address] Creatinine [Mass/volume] in Serum or PlasmaOrdered By: Barrera Arriola on 09-07-2023 Creatinine [Mass/Vol] 0.81 mg/dL Normal 0.70-1.30 [facility] Comment on above: Performed By: #### P SAS, CBC, LIPID, CMP #### [facility] [address] ECG 12 lead ECGon 09-07-2023 ECG 12 lead ECG [facility] [place] [address] [place] [address] Electrocardiograph Report Signed Patient: Elvin Fontaine MR#: [id number] 21 : 1955 Acct:[id number] Age/Sex: 68 / M ADM Date: 09/07/23 Loc: Room: Type: [facility] Attending Dr: Barrera Arriola DO Ordering Provider: Barrera Arriola DO Date of Service: 09/07/23/ ECG/ECG 12 lead ECG: see order Copies to: Test Reason : Blood Pressure : / mmHG Vent. Rate : 076 BPM Atrial Rate : 076 BPM P-R Int : 174 ms QRS Dur : 092 ms QT Int : 350 ms P-R-T Axes : 058 038 037 degrees QTc Int : 393 ms Normal sinus rhythm Septal infarct , age undetermined Abnormal ECG When compared with ECG of 26-FEB-2010 09:49, Septal infarct is now present Confirmed by LIZETH BOYLE [facility]ENTERGIOVA[facility] Ruiz ([id number]) on 09/08/2023 6:51:08 AM Referred By: Electronically Signed By:GIOVANA STANLEY MD [facility] Transcribed By: MUS Signed By Brain Stanley MD 09/08/23 0651 Normal [facility] Erythrocyte distribution wid th [Ratio] by Automated countOrdered By: Barrera Arriola on 09-07-2023 Erythrocyte distribution width (RBC) [Ratio] 13.6 % Normal 12.0-14.8 [facility] Comment on above: Performed By: #### P SAS, CBC, LIPID, CMP #### [facility] [address] Erythrocytes [#/volume] in B lood by Automated countOrdered By: Barrera Arriola on 09-07-2023 RBC (Bld) [#/Vol] 5.07 10*6/uL Normal 3.90-5.60 [facility] Comment on above: Performed By: #### P SAS, CBC, LIPID, CMP #### [facility] [address] Glucose [Mass/volume] in Ser um or PlasmaOrdered By: Barrera Arriola on 09-07-2023 Glucose [Mass/Vol] 94 mg/dL Normal 70-100 [facility] Comment on above: ADA recommended refe rence rangeRandom Glucose Reference Range is dependent on time and content of last meal. Glucose of more than 200 mg/dL in a nonstressed, ambulatory subject supports the diagnosis of Diabetes Mellitus. Result Comment: [place] om Glucose Reference Range is dependent on time and content of last meal. Glucose of more than 200 mg/dL in a nonstressed, ambulatory subject supports the diagnosis of Diabetes Mellitus. ADA recommended reference range Performed By: #### P SAS, CBC, LIPID, CMP #### [address] Hematocrit [Volume Fraction] of Blood by Automated countOrdered By: Barrera Arriola on 09-07-2023 Hematocrit (Bld) [Volume fraction] 46.6 % Normal 38.8-50.0 [facility] Comment on above: Performed By: #### P SAS, CBC, LIPID, CMP #### [facility] [address] Hemoglobin [Mass/volume] in BloodOrdered By: Barrera Arriola on 09-07-2023 Hemoglobin (Bld) [Mass/Vol] 15.5 g/dL Normal 13.0-17.0 [facility] Comment on above: Performed By: #### P SAS, CBC, LIPID, CMP #### [place] [address] [place] Leukocytes [#/volume] correc francisco for nucleated erythrocytes in Blood by Automated counOrdered By: Barrera Arriola on 09-07-2023 WBC corrected for nucl RBC Auto (Bld) [#/Vol] 5.6 10*3/uL 4.1-10.5 [facility] Leukocytes [#/volume] in Blo od by Automated countOrdered By: Barrera Arriola on 09-07-2023 WBC (Bld) [#/Vol] 5.6 10*3/uL Normal 4.1-10.5 [facility] Comment on above: Performed By: #### P SAS, CBC, LIPID, CMP #### [facility] [address] Lipid Panelon 09-07-2023 LDL Cholesterol,Calculated 158 mg/dL High 0-100 [facility] Comment on above: Result Comment: LDL ATP III CLASSIFICATION LDL less than 100 mg/dL Optimal LDL 100-129 mg/dL Near or above optimal LDL 130-159 mg/dL Borderline high LDL 160-189 mg/dL High LDL greater than 189 mg/dL Very high Performed By: #### P SAS, CBC, LIPID, CMP #### [facility] [address] Triglyceride w/Reflex 291 mg/dL High 0-149 [facility] Comment on above: Result Comment: TRIG ATP III CLASSIFICATION TRIG less than 150 mg/dL Normal TRIG 150-199 mg/dL Borderline high TRIG 200-500 mg/dL High TRIG greater than 500 mg/dL Very high Standard traceable to the Center for Disease Conrtrol and Prevention (CDC) test method. Performed By: #### P SAS, CBC, LIPID, CMP #### [facility] [address] VLDL CHOLESTEROL 58 mg/dL Normal [facility] Comment on above: Performed By: #### P SAS, CBC, LIPID, CMP #### [facility] [address] [place] [address] [place] Lymphocytes [#/volume] in Bl ood by Automated countOrdered By: Barrera Arriola on 09-07-2023 Lymphocytes (Bld) [#/Vol] 1.6 10*3/uL Normal 1.00-4.8 [facility] Comment on above: Performed By: #### P SAS, CBC, LIPID, CMP #### [address] Lymphocytes/100 leukocytes i n Blood by Automated countOrdered By: Barrera Bunting on 09-07-2023 Lymphocytes/100 WBC (Bld) 28.0 % Normal . [facility] Comment on above: Performed By: #### P SAS, CBC, LIPID, CMP #### [address] MCH [Entitic mass] by Automa francisco countOrdered By: Barrera Bunting on 09-07-2023 MCH (RBC) [Entitic mass] 30.7 pg Normal 27.5-35.2 [facility] Comment on above: Performed By: #### P SAS, CBC, LIPID, CMP #### [address] MCHC Auto (RBC) [Mass/Vol]Or dered By: Barrera Bunting on 09-07-2023 MCHC (RBC) [Mass/Vol] 33.4 g/dL 32.5-35.6 [facility] MCV [Entitic volume] by Auto mated countOrdered By: Barrera Bunting on 09-07-2023 MCV (RBC) [Entitic vol] 91.9 fL Normal 83.5-101 [facility] Comment on above: Performed By: #### P SAS, CBC, LIPID, CMP #### [address] Neutrophils [#/volume] in Bl ood by Automated countOrdered By: Barrera Bunting on 09-07-2023 Neutrophils (Bld) [#/Vol] 3.2 10*3/uL Normal 1.8-7.7 [facility] Comment on above: Performed By: #### P SAS, CBC, LIPID, CMP #### [address] No Panel InformationOrdered By: Barrera Bunting on 09-07-2023 Estimated GFR (CKD-EPI) > 60.0 mL/Min [facility] Creatinine Clearance (Chem N/A [facility] Nucleated erythrocytes [Pres ence] in Blood by Automated countOrdered By: Barrera Bunting on 09-07-2023 Nucleated RBC Auto Ql (Bld) 0.1 /100{WBC} 0-0.5 [facility] PSA Screen (Yearly Only)on 0 09-07-2023 PSA Screen (Yearly Only) 3.220 ng/mL Normal 0.000-4.000 [facility] Comment on above: Order Comment: Is pa tient <50 yrs? Medicare does not pay <50.: OK Result Comment: Seri al tumor marker results determined by assays using different manufacturers or methods may not be comparable. [facility] sports statistician and method: Retty DXI, CHEMILUMINESCENT IMMUNOASSAY. PERFORMED BY: [place] [address] PATHOLOGIST PSYCHIATR[employer] MIGUEL RODRIGUEZ M.D. Performed By: #### P SAS, CBC, LIPID, CMP #### [facility] [address] [place] [address] Platelet mean volume [Entiti c volume] in Blood by Automated countOrdered By: Barrera Bunting on 09-07-2023 Platelet mean volume (Bld) [Entitic vol] 9.2 fL Normal 6.6-10.1 [facility] Comment on above: Performed By: #### P SAS, CBC, LIPID, CMP #### [facility] [address] [place] [address] [place] Platelets [#/volume] in Bloo d by Automated countOrdered By: Barrera Bunting on 09-07-2023 Platelets (Bld) [#/Vol] 202 10*3/uL Normal 150-450 [facility] Comment on above: Performed By: #### P SAS, CBC, LIPID, CMP #### [facility] [address] [place] [address] [place] Potassium [Moles/volume] in Serum or PlasmaOrdered By: Barrera Bunting on 09-07-2023 Potassium [Moles/Vol] 4.5 mmol/L Normal 3.5-5.1 [facility] Comment on above: Performed By: #### P SAS, CBC, LIPID, CMP #### [facility] [address] [place] [address] Prostate specific Ag [Mass/v olume] in Serum or PlasmaOrdered By: Barrera Bunting on 09-07-2023 Prostate specific Ag [Mass/Vol] 3.220 ng/mL 0.000-4.000 [facility] Comment on above: Serial tumor marker results determined by assays using different manufacturers or methods may not be comparable.[facility] sports statistician and method:Retty DXI, CHEMILUMINESCENT IMMUNOASSAY. Protein [Mass/volume] in Ser um or PlasmaOrdered By: Barrera Bunting on 09-07-2023 Protein [Mass/Vol] 7.0 g/dL Normal 6.4-8.9 [facility] Comment on above: Performed By: #### P SAS, CBC, LIPID, CMP #### [address] Serum globulin measurement b y calculation (mass/volume)Ordered By: Barrera Bunting on 09-07-2023 Globulin (S) [Mass/Vol] 2.6 g/dL [facility] Comment on above: Performed By: #### P SAS, CBC, LIPID, CMP #### [address] Serum or plasma albumin/glob ulin mass ratioOrdered By: Barrera Bunting on 09-07-2023 Albumin/Globulin [Mass ratio] 1.7 {ratio} [facility] Comment on above: Performed By: #### P SAS, CBC, LIPID, CMP #### [address] Serum or plasma anion gap de terminationOrdered By: Barrera Bunting on 09-07-2023 Anion gap [Moles/Vol] 7.9 mmol/L Normal 6.0-15.0 [facility] Comment on above: Performed By: #### P SAS, CBC, LIPID, CMP #### [address] Serum or plasma high density lipoprotein (HDL) cholesterol measurementOrdered By: Barrera Bunting on 09-07-2023 Cholesterol in HDL [Mass/Vol] 42 mg/dL Normal 23-92 [facility] Comment on above: HDL CHOL ATP-III CLA SSIFICATION Cardiovascular RiskHDL > or equal to 60 mg/dL LOWHDL < 40 mg/dL HIGH Result Comment: HDL CHOL ATP-III CLASSIFICATION Cardiovascular Risk HDL > or equal to 60 mg/dL LOW HDL < 40 mg/dL HIGH Performed By: #### P SAS, CBC, LIPID, CMP #### [facility] [address] Serum or plasma total choles terol/high density lipoprotein (HDL) cholesterol mass ratOrdered By: Barrera Bunisha on 09-07-2023 Cholesterol.total/Chol esterol in HDL [Mass ratio] 6.1 {ratio} Normal <5.0 [facility] Comment on above: Result Comment: PERF ORMED BY: [place] [address] PATHOLOGIST PSYCHIATRIC CNS MIGUEL RODRIGUEZ M.D. Performed By: #### P SAS, CBC, LIPID, CMP #### [facility] [address] Sodium [Moles/volume] in Ser um or PlasmaOrdered By: Barrera Bunting on 09-07-2023 Sodium [Moles/Vol] 140 mmol/L Normal 136-145 [facility] Comment on above: Performed By: #### P SAS, CBC, LIPID, CMP #### [facility] [address] Triglyceride [Mass/volume] i n Serum or PlasmaOrdered By: Barrera Bunting on 09-07-2023 Triglyceride [Mass/Vol] 291 mg/dL 0-149 [facility] Comment on above: TRIG ATP III CLASSIF ICATIONTRIG less than 150 mg/dL NormalTRIG 150-199 mg/dL Borderline highTRIG 200-500 mg/dL High TRIG greater than 500 mg/dL Very highStandard traceable to the Center for Disease Conrtrol and Prevention (CDC) test method. Urea nitrogen [Mass/volume] in Serum or PlasmaOrdered By: Barrera Bunting on 09-07-2023 Urea nitrogen [Mass/Vol] 20 mg/dL Normal 7- [facility] Comment on above: Performed By: #### P SAS, CBC, LIPID, CMP #### [facility] [address] XR chest 2V*on 09-07-2023 XR chest 2V* [facility] [place] [address] [place] [address] XRay Report Signed Patient: Elvin Fontaine MR#: [id number] [birth year] : 1955 Acct:[id number] Age/Sex: 68 / M ADM Date: 09/07/23 Loc: Room: Type: [facility] Attending Dr: Barrera Arriola DO Copies to: Barrera Arriola DO Ordering Provider: Barrera Arriola DO Date of Service: 09/07/23 XR/XR chest 2V*: R07.89,E78.2,Z83.49, Z79.89 Plain film chest 2 view HISTORY: Chest pain COMPARISON: 09/22/2016 FINDINGS: SUPPORT DEVICES: None POSTSURGICAL CHANGES: None HEART: Within normal limits PULMONARY AMARI: Within normal limits MEDIASTINUM: Unremarkable LUNGS AND PLEURA: No acute lung process, pleural effusion or pneumothorax identified. Moderate right hemidiaphragm redemonstrated. Mild atelectasis. BONY STRUCTURES: Intact ADDITIONAL FINDINGS None XR/XR chest 2V* IMPRESSION: No acute process. Similar moderate right hemidiaphragm elevation. Impression dictated by: Keny Hernandez M.D.09/07/2023 3:34 PM Dictation Location: [place] [address] Transcribed By: [facility] 09/07/23 1534 Dictated By: Keny Hernandez DO 09/07/23 1528 Signed By: 09/07/23 1534 Normal [facility] Reminderson 01-22-2020 Reminders - From: Helen EPSTEIN NP To: M - Clinical; Sent: 01/18/2020 20:35:11 EDT Show up: 01/18/2020 20:34:00 EDT Subject: Ambulatory Reminder Due Date/Time: 01/19/2020 20:33:00 EDT labs back A1C slightly high-watch sugar/carbs and need to have another A1c in 3 mos to monitor Cholesterol is high. LDL 180- need to watch bad fats and sugars in diet. I would also suggest cholesterol med as BS is borderline and he is at increase risk for vascular events. Is he oky with cholesterol med? Results: Date Result Name Ind Value Ref Range 01/18/2020 7:51 RBC 5.4 E12/L (4.3 - 5.9) 01/18/2020 7:51 Hgb 16.5 gm/dL (13.5 - 17.5) 01/18/2020 7:51 Hct ((H)) 49.5 % (37.7 - 49.0) 01/18/2020 7:51 MCV 92.4 fL (80.0 - 100.0) 01/18/2020 7:51 MCH 30.9 pg (27.0 - 34.0) 01/18/2020 7:51 MCHC 33.4 gm/dL (31.4 - 36.0) 01/18/2020 7:51 RDW 13.3 % (10.9 - 14.2) 01/18/2020 7:51 Platelet 261.0 E9/L (150.0 - 500.0) 01/18/2020 7:51 MPV 9.6 fL (6.4 - 10.8) 01/18/2020 7:51 Neutro Auto 53.1 % (36.0 - 75.0) 01/18/2020 7:51 Lymph Auto 32.8 % (14.0 - 50.0) 01/18/2020 7:51 Gilliam Auto 10.5 % (4.0 - 14.0) 01/18/2020 7:51 Eos Auto 2.8 % (0.0 - 8.0) 01/18/2020 7:51 Basophil Auto 0.8 % (0.0 - 2.0) 01/18/2020 7:51 Neutro Absolute 2.9 E9/L (2.0 - 7.5) 01/18/2020 7:51 Lymph Absolute 1.8 E9/L (1.0 - 4.0) 01/18/2020 7:51 Gilliam Absolute 0.6 E9/L (0.2 - 1.0) 01/18/2020 7:51 Eos Absolute 0.2 E9/L (0.0 - 0.5) 01/18/2020 7:51 Basophil Absolute 0.0 E9/L (0.0 - 0.2) 01/18/2020 7:51 Glucose Lvl 109 mg/dL (55 - 199) 01/18/2020 7:51 BUN 20 mg/dL (5 - 21) 01/18/2020 7:51 Creatinine 0.9 mg/dL (0.5 - 1.3) 01/18/2020 7:51 eGFR >60 mL/min/1.73 m2 (>=59 - ) 01/18/2020 7:51 eGFR AA >60 mL/min/1.73 m2 (>=59 - ) 01/18/2020 7:51 BUN/Creat Ratio ((H)) 22 (10 - 20) 01/18/2020 7:51 Sodium Lvl 138 mmol/L (135 - 145) 01/18/2020 7:51 Potassium Lvl 4.4 mmol/L (3.5 - 5.3) 01/18/2020 7:51 Chloride 101 mmol/L (101 - 111) 01/18/2020 7:51 CO2 29 mmol/L (21 - 31) 01/18/2020 7:51 AGAP 12 mEq/L (6 - 16) 01/18/2020 7:51 Calcium Lvl 9.1 mg/dL (8.9 - 11.1) 01/18/2020 7:51 Alk Phos 61 Int._Unit/L (21 - 98) 01/18/2020 7:51 ALT ((H)) 112 Int._Unit/L (6 - 46) 01/18/2020 7:51 AST ((H)) 51 Int._Unit/L (5 - 43) 01/18/2020 7:51 Total Protein 7.8 gm/dL (6.0 - 7.8) 01/18/2020 7:51 Albumin Lvl 4.1 gm/dL (3.3 - 5.0) 01/18/2020 7:51 Globulin 3.7 gm/dL (1.4 - 4.0) 01/18/2020 7:51 A/G Ratio 1.1 (1.1 - 2.2) 01/18/2020 7:51 Bili Total 1.0 mg/dL (0.0 - 1.1) 01/18/2020 7:51 Hgb A1C % ((H)) 6.0 % ( - <=5.9) 01/18/2020 7:51 Chol ((H)) 285 mg/dL (120 - 200) 01/18/2020 7:51 Trig ((H)) 259 mg/dL ( - <=149) 01/18/2020 7:51 HDL 42 mg/dL 01/18/2020 7:51 LDL Direct ((H)) 176 mg/dL ( - <=129) 01/18/2020 7:51 VLDL ((H)) 52 mg/dL (7 - 40) 01/18/2020 7:51 PSA Scrn Tot. 2.5 ng/mL (0.1 - 3.5) called pt l/m on v/m to return call for results. lmom to give office a call back Patient returns call verbalized understanding and states not wanting any cholesterol med at this time is going to try to control with diet first. From: Helen Quinones LPN ([facility] - Clinical) To: Helen EPSTEIN NP; Sent: 01/22/2020 13:22:44 EDT Show up: 01/22/2020 13:22:00 EDT Subject: RE: Ambulatory Reminder [facility] Coding Summary.on 01-19-2020 Coding Summary. CODING DATE: 020 FINAL [facility] STATUS: Home (Routine DC) PAYOR: Medical [place] ADMIT DX: REASON FOR VISIT DX: E78.5 Hyperlipidemia, unspecified FINAL DX: PRINCIPAL: E78.5 Hyperlipidemia, unspecified SECONDARY: I10 Essential (primary) hypertension R73.01 Impaired fasting glucose R74.8 Abnormal levels of other serum enzymes Z12.5 Encounter for screening for malignant neoplasm of prostate PYMT PROC APC STAT DESCRIPTION DOCTOR NAME DATE NOTE: The code number assigned matches the documented diagnosis and / or procedure in the patient's chart. However, the narrative phrase printed from the coding software may appear abbreviated, or result in slightly different terminology. Coded By: Perri Cope Date Saved: 01/19/2020 01:56 pm Normal [facility] Patient Letter FTMCon 2019 Patient Letter FT (Inserted Image. Addis ble to display) January 19, 2020 ELVIN FONTAINE [address] [place] [address] ELVIN FONTAINE 1955 Dear Elvin, This is a reminder that you are due for an appointment with Dr. Peguero or Dr. Michele. Please call [facility] at [phone] to schedule an appointment at your earliest convenience. Thank you, [facility] Normal [facility] Reminderson 01-19-2020 Reminders - From: Matteo Galindo CMA To: [facility] - Reminders/Recalls; Sent: 04/06/2019 12:39:58 EDT Show up: 01/13/2020 12:39:00 EDT Subject: 2019 Recall Due Date/Time: 02/16/2020 12:39:00 EDT Reminder/Recall 1 Year Surveillance Due 02/16/20 Dr. Michele First Recall Letter Normal [facility] Auto Diffon 01-18-2020 Basophils/100 WBC (Bld) 0.8 % Normal 0.0-2.0 [facility] Comment on above: Order Comment: Order Added by Discern Expert. Performed By: #### 2 [id number], 5930956, 07907932, 37252948, 9423882, 67821877, 9755673, 2822870, 1561163, 1609098 #### [facility] [address] [place] [address] Basophils/Leukocytes Auto (Bld) [Pure # fraction] 0.0 E9/L Normal 0.0-0.2 [facility] Comment on above: Order Comment: Order Added by Discern Expert. Performed By: #### 2 807057, 6396525, 92544148, 49822373, 2994767, 81761704, 2263890, 7455261, 8357024, 7005770 #### [facility] [address] [place] [address] Eosinophils/100 WBC (Bld) 2.8 % Normal 0.0-8.0 [facility] Comment on above: Order Comment: Order Added by Discern Expert. Performed By: #### 2 587762, 1267458, 46122585, 71840561, 5343464, 86978898, 9197471, 0877432, 4320009, 0734506 #### [facility] [address] [place] [address] Eosinophils/Leukocytes Auto (Bld) [Pure # fraction] 0.2 E9/L Normal 0.0-0.5 [facility] Comment on above: Order Comment: Order Added by Discern Expert. Performed By: #### 2 012808, 8848301, 12978819, 81985370, 5593378, 82574620, 4047149, 1936878, 6433280, 6753850 #### [facility] [address] [place] [address] Lymphocytes/100 WBC (Bld) 32.8 % Normal 14.0-50.0 [facility] Comment on above: Order Comment: Order Added by Yehuda Expert. Performed By: #### 2 122734, 5680279, 21450406, 25313466, 0892068, 86984240, 2861950, 3381172, 1366591, 2004557 #### [facility] [address] [place] [address] Lymphocytes/Leukocytes Auto (Bld) [Pure # fraction] 1.8 E9/L Normal 1.0-4.0 [facility] Comment on above: Order Comment: Order Added by Discern Expert. Performed By: #### 2 810095, 0833769, 32250239, 68269800, 5220410, 67533114, 0942547, 4736590, 4741560, 5127205 #### [facility] [address] [place] [address] Monocytes/100 WBC (Bld) 10.5 % Normal 4.0-14.0 [facility] Comment on above: Order Comment: Order Added by Yehuda Expert. Performed By: #### 2 567309, 4477528, 49946950, 73421638, 8507252, 20797849, 7000584, 6895400, 2835723, 3698832 #### [facility] [address] [place] [address] Monocytes/Leukocytes Auto (Bld) [Pure # fraction] 0.6 E9/L Normal 0.2-1.0 [facility] Comment on above: Order Comment: Order Added by Discern Expert. Performed By: #### 2 820328, 8104374, 23438674, 43441776, 3476913, 38424695, 1574179, 4574377, 3927872, 1867893 #### [facility] [address] [place] [address] Neutrophils/100 WBC (Bld) 53.1 % Normal 36.0-75.0 [facility] Comment on above: Order Comment: Order Added by Discern Expert. Performed By: #### 2 232217, 9225031, 15464042, 66685211, 1312139, 31336130, 9675079, 1207306, 7031023, 0957374 #### [facility] [address] [place] [address] Neutrophils/Leukocytes Auto (Bld) [Pure # fraction] 2.9 E9/L Normal 2.0-7.5 [facility] Comment on above: Order Comment: Order Added by Discern Expert. Performed By: #### 2 607339, 7013427, 91779876, 19522491, 0135352, 22802636, 5644074, 1514442, 2808464, 0624755 #### [facility] [address] [place] [address] CBC w/ Auto Diffon 0 Erythrocyte distribution width (RBC) [Ratio] 13.3 % Normal 10.9-14.2 [facility] Comment on above: Performed By: #### 2 080033, 8713097, 79290611, 96374192, 5797015, 88508702, 8997833, 9779244, 3418607, 8355434 #### [facility] [address] [place] [address] Hematocrit (Bld) [Volume fraction] 49.5 % High 37.7-49.0 [facility] Comment on above: Performed By: #### 2 141216, 1208754, 49633260, 77485853, 1544116, 79502119, 4554562, 3165521, 5876837, 1244231 #### [facility] [address] [place] [address] Hemoglobin (Bld) [Mass/Vol] 16.5 g/dL Normal 13.5-17.5 [facility] Comment on above: Performed By: #### 2 525594, 1919581, 44876398, 89025070, 5363617, 29535429, 7924369, 6291301, 3462128, 7517881 #### [facility] [address] [place] [address] MCH (RBC) [Entitic mass] 30.9 pg Normal 27.0-34.0 [facility] Comment on above: Performed By: #### 2 342262, 6452314, 24292224, 41659971, 7625835, 92614902, 7966583, 7339258, 5831720, 8786108 #### [facility] [address] [place] [address] MCHC (RBC) [Mass/Vol] 33.4 g/dL Normal 31.4-36.0 [facility] Comment on above: Performed By: #### 2 942558, 6683400, 63562122, 05501779, 8755971, 23447257, 6938112, 1412290, 5684765, 0590757 #### [facility] [address] [place] [address] MCV (RBC) [Entitic vol] 92.4 fL Normal 80.0-100.0 [facility] Comment on above: Performed By: #### 2 989898, 5960278, 98901386, 58935417, 0622374, 03498358, 3383336, 2878015, 7364492, 3450880 #### [facility] [address] [place] [address] Platelet mean volume (Bld) [Entitic vol] 9.6 fL Normal 6.4-10.8 [facility] Comment on above: Performed By: #### 2 913539, 2410159, 21869650, 21852405, 8384863, 00577699, 6855360, 7838821, 1412600, 8007328 #### [facility] [address] [place] [address] Platelets (Bld) [#/Vol] 261.0 E9/L Normal 150.0-500.0 [facility] Comment on above: Performed By: #### 2 759361, 2519104, 31286054, 22937485, 7863593, 64739810, 0279503, 9651135, 3961556, 7285107 #### [facility] [address] [place] [address] RBC (Bld) [#/Vol] 5.4 E12/L Normal 4.3-5.9 [facility] Comment on above: Performed By: #### 2 541704, 1610921, 35779797, 64861789, 8071400, 94947498, 0218313, 3443788, 9705424, 1500471 #### [facility] [address] [place] [address] WBC corrected for nucl RBC Auto (Bld) [#/Vol] 5.5 E9/L Normal 4.0-11.0 [facility] Comment on above: Performed By: #### 2 708370, 7427901, 21669306, 29382822, 3099844, 36951564, 6891669, 8889459, 6161233, 1695721 #### [facility] [address] [place] [address] CMPon 01-18-2020 Albumin [Mass/Vol] 4.1 g/dL Normal 3.3-5.0 [facility] Comment on above: Performed By: #### 2 108159, 9789662, 54793921, 65160199, 8727117, 71782576, 4366840, 8104532, 4523895, 1980908 #### [facility] [address] [place] [address] Albumin [Mass/Vol] 1.1 g/dL Normal 1.1-2.2 [facility] Comment on above: Performed By: #### 2 528350, 9472646, 08352104, 44234620, 9830739, 99543274, 4570335, 0087936, 2031323, 3017667 #### [facility] [address] [place] [address] ALP [Catalytic activity/Vol] 61 Int._Unit/L Normal 21-98 [facility] Comment on above: Performed By: #### 2 266402, 7457124, 72679721, 05777731, 5368935, 23457166, 4539597, 7003654, 5876190, 6848303 #### [facility] [address] [place] [address] ALT No additional P-5'-P [Catalytic activity/Vol] 112 Int._Unit/L High 6-46 [facility] Comment on above: Performed By: #### 2 824689, 2302812, 35223966, 03188590, 7027081, 58199980, 0686446, 8844770, 1227254, 9862601 #### [facility] [address] [place] [address] Anion gap [Moles/Vol] 12 mmol/L Normal 6-16 [facility] Comment on above: Performed By: #### 2 786179, 8257842, 21585058, 06391876, 8442836, 81700056, 8064497, 9609934, 4251910, 9903268 #### [facility] [address] [place] [address] AST [Catalytic activity/Vol] 51 Int._Unit/L High 5-43 [facility] Comment on above: Performed By: #### 2 311341, 0484110, 47792518, 68469919, 8054445, 60276088, 5393602, 9887298, 4899757, 3652500 #### [facility] [address] [place] [address] Bilirubin [Mass/Vol] 1.0 mg/dL Normal 0.0-1.1 [facility] Comment on above: Performed By: #### 2 860995, 1984098, 80107865, 32979354, 8782332, 03937532, 7792522, 9861052, 5488902, 8097757 #### [facility] [address] [place] [address] Calcium [Mass/Vol] 9.1 mg/dL Normal 8.9-11.1 [facility] Comment on above: Performed By: #### 2 267156, 4619918, 83063049, 43878930, 5802651, 82824985, 8935911, 0919454, 6477241, 8193201 #### [facility] [address] [place] [address] Chloride [Moles/Vol] 101 mmol/L Normal 101-111 [facility] Comment on above: Performed By: #### 2 225874, 5780262, 46283049, 14203843, 7766686, 71739772, 8317881, 8332154, 7772205, 2560941 #### [facility] [address] [place] [address] CO2 [Moles/Vol] 29 mmol/L Normal 21-31 [facility] Comment on above: Performed By: #### 2 884577, 4455517, 68613898, 72710577, 2324729, 78828784, 3448715, 3629077, 5118015, 1147106 #### [facility] [address] [place] [address] Creatinine [Mass/Vol] 0.9 mg/dL Normal 0.5-1.3 [facility] Comment on above: Performed By: #### 2 763466, 6213301, 65983279, 69082978, 1859833, 31347899, 0998666, 8628751, 7301408, 5627878 #### [facility] [address] [place] [address] Globulin (S) [Mass/Vol] 3.7 g/dL Normal 1.4-4.0 [facility] Comment on above: Performed By: #### 2 857065, 2294341, 91911451, 55734340, 3750854, 55960048, 3527240, 2796719, 8249716, 5717984 #### [facility] [address] [place] [address] Glucose [Mass/Vol] 109 mg/dL Normal 55-199 [facility] Comment on above: Result Comment: If t his glucose result represents a fasting glucose, interpretation should refer to the following reference range: 55-99 mg/dL Performed By: #### 2 657106, 8180911, 52003680, 50562887, 7586491, 16709424, 5316842, 6272464, 7292241, 9329066 #### [facility] [address] [place] [address] Potassium [Moles/Vol] 4.4 mmol/L Normal 3.5-5.3 [facility] Comment on above: Performed By: #### 2 364522, 3459299, 07710700, 31766782, 3674579, 36848706, 7403627, 6042328, 5785190, 2441953 #### [facility] [address] [place] [address] Protein [Mass/Vol] 7.8 g/dL Normal 6.0-7.8 [facility] Comment on above: Performed By: #### 2 030353, 6430469, 28331840, 67655033, 4733706, 05985484, 2341760, 4056689, 3002097, 1499328 #### [facility] [address] [place] [address] Sodium [Moles/Vol] 138 mmol/L Normal 135-145 [facility] Comment on above: Performed By: #### 2 166091, 3760066, 34810798, 60491581, 8693675, 09702503, 7942420, 4408406, 6955056, 8530258 #### [facility] [address] [place] [address] Urea nitrogen [Mass/Vol] 20 mg/dL Normal 5-21 [facility] Comment on above: Performed By: #### 2 079579, 1143182, 61580785, 70198318, 7195270, 81460121, 8907633, 8843265, 4987644, 9450294 #### [facility] [address] [place] [address] Urea nitrogen/Creatinine [Mass ratio] 22 No Units High 10-20 [facility] Comment on above: Performed By: #### 2 298242, 1797058, 37929960, 52034022, 7330670, 68842727, 4099885, 6264594, 3122515, 0946413 #### [facility] [address] [place] [address] Consent for Treatmenton Consent for Treatment [id number] Normal [facility] [id number] 01-18-2020 HbA1c (Bld) [Mass fraction] 6.0 % High <=5.9 [facility] Comment on above: Performed By: #### 2 525143, 2311223, 86684736, 26721965, 9239619, 91283091, 6006698, 9143517, 6371194, 3568241 #### [facility] [address] [place] [address] Lipid Panelon 01-18-2020 Cholesterol [Mass/Vol] 285 mg/dL High 120-200 [facility] Comment on above: Performed By: #### 2 105040, 4397824, 92448373, 61403726, 0210657, 12840459, 9570340, 1043883, 5379996, 5894161 #### [facility] [address] [place] [address] Cholesterol in HDL [Mass/Vol] 42 mg/dL [facility] Comment on above: Result Comment: HDL > or equal to 60 mg/dL: Low cardiovascular risk HDL < 40 mg/dL : High cardiovascular risk Performed By: #### 2 831852, 7106125, 24564145, 25073549, 3026931, 08750858, 9307230, 6048595, 7390338, 0248889 #### [facility] [address] [place] [address] Cholesterol in LDL [Mass/Vol] 176 mg/dL High <=129 [facility] Comment on above: Performed By: #### 2 313643, 3050487, 63168572, 93114592, 3593688, 57290909, 8621583, 9196237, 6160267, 4736683 #### [facility] [address] [place] [address] Cholesterol in VLDL [Mass/Vol] 52 mg/dL High 7-40 [facility] Comment on above: Performed By: #### 2 119395, 0975527, 26502950, 24078006, 1492836, 07152759, 6533291, 5401097, 5715328, 5710000 #### [facility] [address] [place] [address] Triglyceride [Mass/Vol] 259 mg/dL High <=149 [facility] Comment on above: Performed By: #### 2 461169, 8908302, 90377740, 50011987, 5008918, 56498311, 1933579, 6534671, 6349055, 0595941 #### [facility] [address] [place] [address] PSA Screen, Totalon 01-18-20 20 Prostate specific Ag [Mass/Vol] 2.5 ng/mL Normal 0.1-3.5 [facility] Comment on above: Performed By: #### 2 310730, 0261950, 25187888, 83224897, 0989910, 39758776, 6226232, 7731259, 0212670, 7832373 #### [facility] [address] [place] [address] eGFRon 08-06-2020 GFR/1.73 sq M predicted among blacks MDRD (S/P/Bld) [Vol rate/Area] mL/min/{1.73_m2} Normal >=59 [facility] Comment on above: Order Comment: Order added by Discern Expert. Result Comment: eGFR is race adjusted. AA=. Performed By: #### 2 000834, 4285812, 52205027, 69129063, 2898697, 97299025, 9784215, 7716612, 3915961, 8604988 #### [facility] [address] [place] [address] GFR/1.73 sq M predicted among non-blacks MDRD (S/P/Bld) [Vol rate/Area] mL/min/{1.73_m2} Normal >=59 [facility] Comment on above: Order Comment: Order added by Discern Expert. Result Comment: Barber Apprentice jacob kidney disease could be indicated at eGFR's of less than 60 mL/min/1.73m2. Kidney failure is indicated at less than 15 mL/min/1.73m2. Performed By: #### 2 610183, 5397260, 91646104, 04306240, 5534296, 76774021, 2257849, 5315368, 4541182, 8060508 #### [facility] [address] [place] [address] Family Medicine Office/Clini c Noteon 01-04-2020 Family Medicine Office/Clinic Note Chief Complaint 6 month f/u History of Present Illness Elvin is a 64 yo male here for 6 month f/u. BP high in office today better upon recheck, denies any headaches or dizziness. States he saw oncology last month and BP was 124/80. DOes not check BP at home. Follows with oncology for DVT-cleared and off Xarelto. Follows every 6 months. Positive cologuard- Follows with [facility] Dog passed and has not been able to walk. Not able to go to to gym due to COVID19. Last labs - 12/2018 Last colonoscopy - 02/2019 Last PSA 12/2018 Former smoker-quit >15 years ago. Review of Systems Constitutional- Denies fever, chills HEENT-Denies sore throat, congestion, lymphadenopathy Cardiovascular-Denies chest pain, palpations Respiratory-Denies shortness of breath, cough Gastrointestinal-Denies nausea, vomiting, constipation, diarrhea Genitourinary-Denies dysuria, hematuria Extremities-Denies edema Skin-Denies rashes, skin lesions Neuro-Denies headaches, numbness, tingling, weakness Physical Exam Vitals & Measurements T: 36.5 ?C (Temporal Artery) HR: 91(Peripheral) BP: 132/84 SpO2: 97% HT: 174 cm WT: 95 kg BMI: 31.38 Constitutional-Alert and orientated x3, in no acute distress Head-Normocephalic, atraumatic Eyes-Pupils equal and reactive to light, extraocular muscles intact, sclera clear Ears-Hearing intact to conversation Neck-No lymphadenopathy, no thyroid masses/nodules palpated Cardiovascular-Regular rate and rhythm, no murmurs noted Respiratory-No increased work of breathing. Clear to auscultation bilaterally, no wheezes or rhonchi Gastrointestinal-Soft, nondistended Extremities-No edema Skin-No rashes visualized Neuro-CN II-XII grossly intact Psych-Cooperative, pleasant, good eye contact. Assessment/Plan 1. Well adult exam (Z00.00: Encounter for general adult medical examination without abnormal findings) will get updated labs in there from 06/2019 will call with results. will see back in 6 weeks. up to date with colonoscopy. 2. Hyperlipidemia (E78.5: Hyperlipidemia, unspecified) 3. Hypertension (I10: Essential (primary) hypertension) Ordered: CBC w/ Auto Diff 4. Prostate cancer screening (Z12.5: Encounter for screening for malignant neoplasm of prostate) Follow-up With When Contact Information Shandra HUTCHINS DOlin E Only if needed Additional Instructions: SCHWHector PETERSON DOitlin E In 6 months Additional Instructions: Patient Education Health Maintenance, Males Problem List/Past Medical History Ongoing Colon polyps Elevated liver enzymes Fatty liver Hyperlipidemia Hypertension Obesity Positive colorectal cancer screening using Cologuard test Prostate cancer screening Well adult exam Historical Right leg DVT Procedure/Surgical History Colonoscopy (02/15/2019), Umbilical hernia (06/14/2011), Left shoulder (06/14/2008), Right shoulder (06/14/1998). Medications aspirin 81 mg oral tablet Allergies No Known Allergies Social History Alcohol Current, 1-2 times per week, 12/09/2018 Exercise - Does not exercise, 01/26/2019 Other Caffeine-1 cup daily, 01/26/2019 Substance Abuse - Denies Substance Abuse, 12/09/2018 Tobacco Former smoker, quit more than 30 days ago Tobacco Use:. Never Smokeless Tobacco Use:. Stopped age 47 Years., 01/04/2020 Family History Family history is negative Immunizations Vaccine Date Status influenza virus vaccine, live, trivalent 03/2019 Recorded Normal [facility] Comment on above: Result Comment: Elec tronically Signed By: Italia HUTCHINS DO\.br\Date and Time Signed: 01/04/20 15:44 EDT Patient Educationon 01-04-20 Patient Education Family Medicine Health Maintenance, Males A healthy lifestyle and preventative care can promote health and wellness. ? Maintain regular health, dental, and eye exams. ? Eat a healthy diet. Foods like vegetables, fruits, whole grains, low-fat dairy products, and lean protein foods contain the nutrients you need without too many calories. Decrease your intake of foods high in solid fats, added sugars, and salt. Get information about a proper diet from your caregiver, if necessary. ? Regular physical exercise is one of the most important things you can do for your health. Most adults should get at least 150 minutes of moderate-intensity exercise (any activity that increases your heart rate and causes you to sweat) each week. In addition, most adults need muscle-strengthening exercises on 2 or more days a week. ? ? Maintain a healthy weight. The body mass index (BMI) is a screening tool to identify possible weight problems. It provides an estimate of body fat based on height and weight. Your caregiver can help determine your BMI, and can help you achieve or maintain a healthy weight. For adults 20 years and older: ? A BMI below 18.5 is considered underweight. ? A BMI of 18.5 to 24.9 is normal. ? A BMI of 25 to 29.9 is considered overweight. ? A BMI of 30 and above is considered obese. ? Maintain normal blood lipids and cholesterol by exercising and minimizing your intake of saturated fat. Eat a balanced diet with plenty of fruits and vegetables. Blood tests for lipids and cholesterol should begin at age 20 and be repeated every 5 years. If your lipid or cholesterol levels are high, you are over 50, or you are a high risk for heart disease, you may need your cholesterol levels checked more frequently.?Ongoing high lipid and cholesterol levels should be treated with medicines, if diet and exercise are not effective. ? If you smoke, find out from your caregiver how to quit. If you do not use tobacco, do not start. ? If you choose to drink alcohol, do not exceed 2 drinks per day. One drink is considered to be 12 ounces (355 mL) of beer, 5 ounces (148 mL) of wine, or 1.5 ounces (44 mL) of liquor. ? Avoid use of street drugs. Do not share needles with anyone. Ask for help if you need support or instructions about stopping the use of drugs. ? High blood pressure causes heart disease and increases the risk of stroke. Blood pressure should be checked at least every 1 to 2 years. Ongoing high blood pressure should be treated with medicines if weight loss and exercise are not effective. ? If you are 45 to 79 years old, ask your caregiver if you should take aspirin to prevent heart disease. ? Diabetes screening involves taking a blood sample to check your fasting blood sugar level. This should be done once every 3 years, after age 45, if you are within normal weight and without risk factors for diabetes. Testing should be considered at a younger age or be carried out more frequently if you are overweight and have at least 1 risk factor for diabetes. ? Colorectal cancer can be detected and often prevented. Most routine colorectal cancer screening begins at the age of 50 and continues through age 75. However, your caregiver may recommend screening at an earlier age if you have risk factors for colon cancer. On a yearly basis, your caregiver may provide home test kits to check for hidden blood in the stool. Use of a small camera at the end of a tube, to directly examine the colon (sigmoidoscopy or colonoscopy ), can detect the earliest forms of colorectal cancer. Talk to your caregiver about this at age 50, when routine screening begins. Direct examination of the colon should be repeated every 5 to 10 years through age 75, unless early forms of pre-cancerous polyps or small growths are found. ? Hepatitis C blood testing is recommended for all people born from 1945 through 1965 and any individual with known risks for hepatitis C. ? Healthy men should no longer receive prostate-specific antigen (PSA) blood tests as part of routine cancer screening. Consult with your caregiver about prostate cancer screening. ? Testicular cancer screening is not recommended for adolescents or adult males who have no symptoms. Screening includes self-exam, caregiver exam, and other screening tests. Consult with your caregiver about any symptoms you have or any concerns you have about testicular cancer. ? Practice safe sex. Use condoms and avoid high-risk sexual practices to reduce the spread of sexually transmitted infections (STIs). ? Use sunscreen with a sun protection factor (SPF) of 30 or greater. Apply sunscreen liberally and repeatedly throughout the day. You should seek shade when your shadow is shorter than you. Protect yourself by wearing long sleeves, pants, a wide-brimmed hat, and sunglasses year round, whenever you are outdoors. ? Notify your caregiver of new moles or changes in moles, especially if there is a change in shape or color. Also notify your caregiver if a mole is larger than the size of a pencil eraser. ? A one-time screening for abdominal aortic aneurysm (AAA) and surgical repair of large AAAs by sound wave imaging (ultrasonography ) is recommended for ages 65 to 75 years who are current or former smokers. ? Stay current with your immunizations. Document Released: 11/26/2008 Document Revised: 08/22/2012 Document Reviewed: 10/26/2011 ExitCare? Patient Information ?2013 [employer]. [facility] Coding Summary.on 05-09-2019 Coding Summary. CODING DATE: 019 [facility] STATUS: Home (Routine DC) PAYOR: [facility] [place] [facility] DESCRIPTION 5522 Level 2 Imaging without Contrast ADMIT DX: REASON FOR VISIT DX: I82.401 Acute embolism and thrombosis of unspecified deep veins of right lower extremity FINAL DX: PRINCIPAL: I82.401 Acute embolism and thrombosis of unspecified deep veins of right lower extremity SECONDARY: PYMT PROC APC STAT DESCRIPTION DOCTOR NAME DATE NOTE: The code number assigned matches the documented diagnosis and / or procedure in the patient's chart. However, the narrative phrase printed from the coding software may appear abbreviated, or result in slightly different terminology. Coded By: Sammi Bennett CphT Date Saved: 05/09/2019 10:[address] [facility] LE Venous Duplex Righton 05-08-2019 LE Venous Duplex Right Exam Date/Time: 05/08/2019 07:29 EST Reason for Exam: I82.401 Acute embolism and thrombosis of unspecified deep veins of right lower extremity Report IMPRESSION: NO EVIDENCE OF VENOUS THROMBOSIS INVOLVING VISUALIZED DEEP VEINS OF THE RIGHT LEG. CLINICAL HISTORY: I82.401 Acute embolism and thrombosis of unspecified deep veins of right lower extremity. COMMENT: On the right, the greater saphenous vein, common femoral vein, deep femoral vein, femoral vein, and popliteal vein demonstrate spontaneous phasic venous flow, with augmentation, competence, non-pulsatility, and compressibility every 2 cm. The right posterior tibial and peroneal veins of the deep venous system compress. The contralateral left common femoral vein demonstrates spontaneous phasic venous flow. FINAL REPORT Dictated: 05/08/2019 3:06 pm Brain Busby M.D. Signed (Electronic Signature): 05/08/2019 3:06 pm Signed by: Brain Busby M.D. Transcribed by: MARTA Technologist: LEONIDAS [facility] Reminderson 04-28-2019 Reminders - From: Aidan Michele MD, Ivonne To: Matteo Conner; Sent: 03/13/2019 08:33:56 EDT Show up: 03/13/2019 08:34:00 EDT Subject: Ambulatory Reminder Reminder/Recall Repeat colonoscopy in 1 year Done mlc [facility] Coding Summary.on 02-17-2019 Coding Summary. CODING DATE: 019 FINAL [facility] STATUS: Home (Routine DC) PAYOR: [facility] [place] [facility] DESCRIPTION 5312 Level 2 Lower GI Procedures ADMIT DX: REASON FOR VISIT DX: R19.5 Other fecal abnormalities FINAL DX: PRINCIPAL: D12.5 Benign neoplasm of sigmoid colon SECONDARY: K63.5 Polyp of colon K57.30 Diverticulosis of large intestine without perforation or abscess without bleeding K64.4 Residual hemorrhoidal skin tags K64.8 Other hemorrhoids R19.5 Other fecal abnormalities K76.0 Fatty (change of) liver, not elsewhere classified E66.9 Obesity, unspecified Z79.01 alf (current) use of anticoagulants Z87.891 Personal history of nicotine dependence Z86.718 Personal history of other venous thrombosis and embolism Z68.32 Body mass index (BMI) 32.0-32.9, adult PYMT PROC APC STAT DESCRIPTION DOCTOR NAME DATE 52132 12 T Colonoscopy, flexible; Adriana Wei MD 02/15/2019 with directed submucosal injection(s), any substance 70382 5312 T Colonoscopy, flexible; Aidan Michele MD, Adriana 02/15/2019 with removal of tumor(s), polyp(s), or other lesion(s) by snare technique 45890 Anesthesia for lower Cody Jr. DO, Jose Miguel 02/15/2019 intestinal endoscopic procedures, endoscope introduced distal to duodenum; not otherwise specified NOTE: The code number assigned matches the documented diagnosis and / or procedure in the patient's chart. However, the narrative phrase printed from the coding software may appear abbreviated, or result in slightly different terminology. Revised Coded By: Loren Adkins Revised Date Saved: 02/17/2019 11:46 am Normal [facility] Main OR Intraoperative Recor don 02-16-2019 Main OR Intraoperative Record IntraOp Document Type FT Summary Primary Physician: Ivonne Wei MD Finalized Date/Time: 02/16/19 08:38:26 Pt. Name: ELVIN FONTAINE/Sex: 1955 Male Med Rec #: [id number] Physician: Ivonne Wei MD Financial #: [id number] Pt. Type: O Room/Bed: / Admit/Disch: 02/15/19 07:57:43 - 02/15/19 23:59:59 Institution: Case Times FT Entry 1 Patient Times In Room 02/15/19 09:24:00 Out Room 02/15/19 09:59:00 Procedure Times Start 02/15/19 09:28:00 Stop 02/15/19 09:55:00 Anesthesia Times Start 02/15/19 09:24:00 Stop 02/15/19 09:59:00 Time at [facility] 02/15/19 09:33:00 Last Modified By: Dena Yanez CST 02/15/19 09:59:50 General Comments: 02/16/19 Chart opened to review and send charges J Beau MGMT SPECIALIST Case Attendance FT Entry 1 Entry 2 Entry 3 Case Attendee Jose Miguel Cody Jr., DO RN, Honey Mora MGMT SPECIALIST, Jenni Role Performed Anesthesiologist of Assessment Coordinator - Primary Scrub - Primary Record Time In 02/15/19 09:24:00 02/15/19 09:24:00 02/15/19 09:24:00 Time Out 02/15/19 09:59:00 02/15/19 09:59:00 02/15/19 09:59:00 Procedure COLONOSCOPY(.) COLONOSCOPY(.) COLONOSCOPY(.) Comments Last Modified By: Sai RN, Honey Gibbs RN, Honey Gibbs RN, Honey 02/15/19 10:00:11 02/15/19 10:00:11 02/15/19 10:00:11 Entry 4 Entry 5 Case Attendee Yessenia Hinojosa MD, Ivonne Role Performed Scrub - Other Surgeon - Primary Time In 02/15/19 09:35:00 02/15/19 09:24:00 Time Out 02/15/19 09:59:00 02/15/19 09:59:00 Procedure COLONOSCOPY(.) COLONOSCOPY(.) Comments assist in room Last Modified By: Sai RN, Honey Gibbs RN, Honey 02/15/19 10:00:31 02/15/19 10:00:11 Perioperative Protocols FT Pre-Care Text: Implements protective measures prior to operative or invasive procedure, confirms identity before the operative or invasive procedure, verifies operative procedure, surgical site, and laterality Entry 1 Procedure(s) COLONOSCOPY(.) Patient Identity Birthday, ID Band Verified (select at Check, Patient least 2): Participation Consents / H and P Anesthesia Consent, Operative Site N/A Verified HandP, Surgery/Procedure Marking Verified Consent Surgical Site Yes Laterality Verified n/a Verified Procedure Verified Yes Correct Patient Yes Position Verified Availability Equipment, Medication Prep Dry n/a Verified (If Applicable) PreOp Antibiotic No Time Out Jose Miguel Cody Jr., DO, Workman RN, Eriberto Méndez MD, Ivonne Time Out Complete 02/15/19 09:27:00 Outcomes Met? Yes Last Modified By: Honey Gibbs RN 02/15/19 09:28:30 Post-Care Text: The patient is free from signs and symptoms of injury caused by extraneous objects Allergy Information FT Pre-Care Text: Verifies allergies Entry 1 Allergies Reviewed? Yes Allergies Reviewed Self/Patient With Outcomes Met? Yes Last Modified By: Honey Gibbs RN 02/15/19 06:57:25 Post-Care Text: The patient received appropriate medication(s) safely administered during the perioperative period Surgical Procedures FT Entry 1 Procedure Description Procedure COLONOSCOPY Modifiers . Surgeon Description COLONOSCOPY with cecal polypectomy using lifting with eleview and hot snare with hemoclips x2 applied to site. Sigmoid colon polypectomy injected with Epinephrine 2ml ( 0.1mg/ml) with endo loop application and hot snare with hemoclips x2 applied to site. Primary Procedure Yes Primary Surgeon Ivonne Wei MD Start 02/15/19 09:28:00 Stop 02/15/19 09:55:00 Anesthesia Type General Surgical Service Gastroenterology Wound Class 2 - Clean-Contaminated Last Modified By: Honey Gibbs RN 02/15/19 09:58:24 General Case Data FT Pre-Care Text: Classifies surgical wound, implements aseptic technique, initiates traffic control Entry 1 Case Information OR ENDO 1 FT Case Level Level 2 Wound Class 2 - Clean-Contaminated Specialty Gastroenterology ASA Class 2 Preop Diagnosis POSITIVE COLOGUARD Postop Same As Preop No Postop Diagnosis small external Outcomes Met? Yes hemorrhoids, cecal polyp, sigmoid colon polyp, transverse colon and left sided diverticulosis, and large internal hemorrhoids Last Modified By: Honey Gibbs RN 02/15/19 09:59:43 Post-Care Text: The patient is free from signs and symptoms of infection Skin Assessment (Pre Procedure) FT Pre-Care Text: Implements protective measures to prevent skin/ tissue injury due to thermal or mechanical sources Evaluates for signs and symptoms of physical injury to skin and tissue Entry 1 Skin Integrity Intact, Brewer, Warm, and Skin Abnormality No Dry Outcomes Met? Yes Last Modified By: Honey Gibbs RN 02/15/19 06:57:49 Post-Care Text: The patient is free from signs and symptoms of injury caused by extraneous objects Patient Positioning FT Pre-Care Text: Identifies physical alterations that require additional precautions for procedure-specific positioning, verifies presence of prosthetics or corrective devices, positions the patient, evaluates the patient for signs and symptoms of injury as a result of positioning Entry 1 Procedure COLONOSCOPY(.) Body Position Lateral, right side up Feet Uncrossed? Yes Left Arm Position Resting at Side Right Arm Position Resting at Side Left Leg Position Extended Right Leg Position Extended Positioning Device Pillow Under Head Large, Safety Strap Press Points Checked Yes By Honey Gibbs RN Outcomes Met? Yes Last Modified By: Honey Gibbs RN 02/15/19 06:57:56 Post-Care Text: The patient is free from signs and symptoms of injury related to positioning Patient Care Devices FT Pre-Care Text: Implements protective measures to prevent skin/ tissue injury due to thermal or mechanical sources Entry 1 Entry 2 Entry 3 Equipment Type ENDOSCOPY VIDEO MONITOR CHARGE SURGERY CAUTERY ERBE UNIT [F] SYSTEM[F] [F] Equipment Number [id number] E1 Equipment Setting Outcomes Met? Yes Yes Yes Last Modified By: Sai JONES, Honey Gibbs RN, Honey Samuel RN 02/15/19 06:58:09 02/15/19 06:58:09 02/15/19 09:41:47 Post-Care Text: The patient is free from signs and symptoms of injury caused by extraneous objects Transport To OR FT Pre-Care Text: Transports according to individual needs. Evaluates for signs and symptoms of skin and tissue injury as a result of transfer or transport Entry 1 Via Cart By Honey Gibbs RN Safety Precautions Safety Strap, Side Outcomes Met? Yes Rails Up Last Modified By: Honey Gibbs RN 02/15/19 06:58:15 Post-Care Text: The patient is free from signs and symptoms of injury related to transfer/transport Cautery FT Pre-Care Text: Implements protective measures to prevent injury due to electrical sources, and evaluates for signs and symptoms of electrical injury Entry 1 ESU Identification ESU Type CAUTERY ERBE UNIT [F] ESU Settings ESU Grounding Pad Site Right Thigh Hair Removal Pad No Site Pre Pad Site Clear and Intact Post Pad Site Clear and Intact Condition Condition Grounding Pad Rice MGMT SPECIALIST, Jenni Placed By Outcomes Met? Yes Last Modified By: Honey Gibbs RN 02/15/19 09:42:59 Post-Care Text: The patient if free from signs and symptoms of electrical injury General Comments: Heat settings per ERBE using hot snare/biopsy./AW RN Departure From OR FT Pre-Care Text: Transports according to individual needs. Evaluates for signs and symptoms of skin and tissue injury as a result of transfer or transport. Entry 1 Via Cart Safety Precautions Safety Strap, Side Rails Up PostOp Destination PACU Transported By Honey Gibbs RN Patient Status Stable Skin. Condition Intact, Brewer, Warm, and Dry Airway Maintenance Oxygen in Use? No Airway Device N/A Outcomes Met? 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 Yes Verified Last Modified By: Honey Gibbs RN 02/15/19 06:58:39 Post-Care Text: The patient received appropriate medication(s) safely administered during the perioperative period For [facility] please see scanned medication reconcilliation form for medications used at the field during the procedure. Cultures and Specimens FT Pre-Care Text: Manages specimen handling and disposition Manages culture specimen collection Entry 1 Cultures Ordered n/a Specimens Ordered Yes Specimen Disposition Designated OR Area Frozen Section Times Outcomes Met? Yes Last Modified By: Honey Gibbs RN 02/15/19 09:33:57 Post-Care Text: The patient is free from signs and symptoms of injury caused by extraneous objects The patient is free from signs and symptoms of infection Case Comments Finalized By: Dena Yanez CST Document Signatures Signed By: Honey Gibbs RN 02/15/19 10:09 Honey Gibbs RN 02/15/19 10:00 Dena Yanez CST 02/16/19 08:38 Normal [facility] Inpatient Patient Summaryon 02-15-2019 Inpatient Patient Summary [facility] Clinical Discharge Instructions PERSON INFORMATION Name: ELVIN FONTAINE PHYSICIANS Admitting Physician: Ivonne Wei MD Attending Physician: Ivonne Wei MD PCP: Italia HUTCHINS DO Discharge Diagnosis: Comment: PATIENT EDUCATION INFORMATION Instructions: Colonoscopy, Care After Surgery Salam (CUSTOM); Colon Polyps; Diverticulosis MAGR (CUSTOM); Hemorrhoids, [id number]; [facility] NSAIDS-Nonsteroidal Anti-Inflammatory Medications (CUSTOM) Medication Leaflets: Follow up: With: Address: When: Ivonne Michele [address] [place] [address] Business (1) Comments: Keep scheduled appointment Type Location Start [facility] [address] Follow Up [facility] 03/13/2019 8:00 AM 03/13/2019 8:15 AM Confirmed FM SOV FM Saeed 07/06/2019 3:30 PM 07/06/2019 3:45 PM Confirmed MEDICATION LIST Comment: Normal [facility] Main OR PACU I Recordon Main OR PACU I Record PACU Phase I Docum ent Type FT Summary Primary Physician: Ivonne Wei MD Finalized Date/Time: 02/15/19 10:39:28 Pt. Name: ELVIN FONTAINE/Sex: 1955 Male Med Rec #: [id number] Physician: Ivonne Wei MD Financial #: [id number] Pt. Type: O Room/Bed: / Admit/Disch: 02/15/19 07:57:43 - Institution: Case Times PACU I FT Pre-Care Text: Identifies barriers to communication and implements measures to provide psychological support Develops individualized plan of care, and ensures continuity of care Maintains patient's dignity and privacy, and maintains patient confidentiality Identifies and reports philosophical, cultural, and spiritual beliefs and values Identifies individual values and wishes concerning care Implements aseptic technique, and administers prescribed antibiotic therapy and immunizing agents as ordered Evaluates postoperative tissue perfusion Implements thermoregulation measures, and monitors body temperature Evaluates postoperative respiratory status Evaluates postoperative cardiac status Evaluates postoperative neurological status Assesses pain control, collaborated in initiating patient-controlled analgesia and implements alternative methods of pain control Verifies allergies, administers prescribed medications and solutions, evaluates response to medications Entry 1 In PACU I 02/15/19 09:59:00 Discharge from PACU 02/15/19 10:38:00 I Outcomes Met? Yes Last Modified By: Andres JONES, Shania Bentley 02/15/19 10:39:17 Post-Care Text: The patient demonstrates knowledge of the expected response to the operative or invasive procedure The patient's care is consistent with the individualized perioperative plan of care The patient's right to privacy is maintained The patient's value system, lifestyle, ethnicity, and culture are considered, respected, and incorporated into the perioperative plan of care The patient participates in decisions affecting his or her perioperative plan of care The patient is free from signs and symptoms of infection The patient has wound/tissue perfusion consistent with or improved from baseline levels established preoperatively The patient is at or returning to normothermia at the conclusion of the immediate postoperative period The patient's respiratory function is consistent with or improved from baseline levels established preoperatively The patient's cardiovascular status is consistent with or improved from baseline levels established preoperatively The patient's cardiovascular status is consistent with or improved from baseline levels established preoperatively The patient demonstrates and/or reports adequate pain control throughout the perioperative period The patient received appropriate medication(s), safely administered during the perioperative period Acuity Level PACU I FT Entry 1 Start Time 02/15/19 09:59:00 Stop Time 02/15/19 10:38:00 Acuity Level Acuity Level I Last Modified By: Shania Campos RN 02/15/19 10:39:26 Finalized By: Shania Campos RN Document Signatures Signed By: Shania Campos RN 02/15/19 10:39 Normal [facility] Main OR Preoperative Recordo n 02-15-2019 Main OR Preoperative Record Holding Area Document Type FT Summary Primary Physician: Ivonne eWi MD Finalized Date/Time: 02/15/19 08:10:33 Pt. Name: ELVIN FONTAINE/Sex: 1955 Male Med Rec #: [id number] Physician: Ivonne Wei MD Financial #: [id number] Pt. Type: O Room/Bed: / Admit/Disch: 02/15/19 07:57:43 - Institution: Case Times Holding FT Pre-Care Text: Verifies consent for planned procedure, identifies individual values and wishes concerning care, includes family members in perioperative teaching Secures patient's records' belongings, and valuables, maintains patient's dignity and privacy, and maintains patient confidentiality Entry 1 In Holding 02/15/19 08:06:00 Outcomes Met? Yes Last Modified By: Janel Lamas RN 02/15/19 08:06:07 Post-Care Text: The patient participates in decisions affecting his or her perioperative plan of care The patient's right to privacy is maintained Surgery Checklist FT Entry 1 Patient Birthday, ID Band Procedure History and Physical, Identification: Check, Patient Verification: Surgical Consent, With Participation Patient NPO after Midnight: No Personal Items: Glasses Limitations: none Complaints of Pain: No Operative Site n/a Availability Equipment Marking: Verified: Does Patient Smoke No Patient states Yes Comment - Adult girlfriend postop adult Supervision supervision available Case Cancelled in No Holding Area see comments below for reason Last Modified By: Janel Lamas RN 02/15/19 08:10:28 General Comments: NPO after prep completed around 0430 per patient. RHRN Finalized By: Janel Lamas RN Document Signatures Signed By: Janel Lamas RN 02/15/19 08:10 Normal [facility] Patient Education - Texton 0 02-15-2019 Patient Education - Text Colonoscopy Care After Surgery Please read the instructions outlined below and refer to this sheet in the next few weeks. These discharge instructions provide you with general information on caring for yourself after you leave the hospital. Your doctor may also give you specific instructions. While your treatment has been planned according to the most current medical practices available, unavoidable complications occasionally occur. If you have any problems or questions after discharge, please call your doctor. ACTIVITY You may resume your regular activity, but move at a slower pace for the next 24 hours. Take frequent rest periods for the next 24 hours. Walking will help get rid of the air and reduce the bloated feeling in your abdomen (belly). No driving for 24 hours (because of the anesthesia (medicine) used during the test). You may shower. Do not sign any important legal documents or operate any machinery for 24 hours (because of the anesthesia used during the test). NUTRITION Drink plenty of fluids. You may resume your normal diet as instructed by your doctor. Begin with a light meal and progress to your normal diet. Heavy or fried foods are harder to digest and may make you feel nauseated (sick to your stomach). Avoid alcoholic beverages for 24 hours or as instructed. MEDICATIONS You may resume your normal medications unless your doctor tells you otherwise. WHAT YOU CAN EXPECT TODAY Some feelings of bloating in the abdomen. Passage of more gas than usual. Spotting of blood in your stool or on the toilet paper. FOLLOW-UP Your doctor will discuss the results of your test with you. SEEK IMMEDIATE MEDICAL ATTENTION IF: There is more than a spotting of blood in your stool. There is abdominal distention (your abdomen is swollen). There is vomiting. You have a temperature over 101.5 F. There is abdominal pain or discomfort that is severe or gets worse throughout the day. Diverticulosis Many people have small pouches in their colon called diverticulum. The diverticulum bulge outward through weak spots in the colon. You could have one or more of these pouches in the colon. The condition of having these pouches in the colon is called diverticulosis or diverticular disease. Diverticulosis is usually diagnosed by tests to evaluate something else. For example, you may have had a colonoscopy to screen for colon cancer when the diverticulosis was found. Most people with diverticulosis do not have any discomfort or problems. If symptoms develop, they may include mild cramps, bloating, and constipation. A complication of this condition is called diverticulitis. This is when the diverticulum become inflamed and infected. How to treat diverticulosis: Increasing the amount of fiber in the diet may reduce symptoms of diverticulosis and prevent complications such as diverticulitis (infected diverticuli). Fiber keeps stool soft and lowers pressure inside the colon so that bowel contents can move through easily. You should eat 20 to 35 grams of fiber each day. The table below shows the amount of fiber in some foods that you can easily add to your diet. Adding fiber slowly may decrease the bloating and fullness sometimes felt with an immediate high fiber diet. The doctor may also recommend taking a fiber product such as Citrucel or Metamucil once a day. In the past people with diverticulosis were to avoid nuts, corn, and seeds. This has not been found to be true. If you find that certain foods create cramping or bloating, avoid that food. Foods high in fiber include: Fresh fruits, fresh vegetables, legumes (beans), whole wheat bread, bran muffins or cereal, and nuts. See the table below for examples of high fiber foods. Remember, your goal is 20-35 grams per day. Amount of fiber in different foods Food Serving Grams of fiber Fruits Apple (with skin) 1 medium apple 4.4 Banana 1 medium banana 3.1 Oranges 1 orange 3.1 Prunes 1 cup, pitted 12.4 Juices Apple, unsweetened, w/added ascorbic acid 1 cup 0.5 Grapefruit, white, canned, sweetened 1 cup 0.2 Grape, unsweetened, w/added ascorbic acid 1 cup 0.5 [place] 1 cup 0.7 Vegetables Cooked Green beans 1 cup 4.0 Carrots 1/2 cup sliced 2.3 Peas 1 cup 8.8 Potato (baked, with skin) 1 medium potato 3.8 Raw [place] (with peel) 1 cucumber 1.5 Lettuce 1 cup shredded 0.5 Tomato 1 medium tomato 1.5 Spinach 1 cup 0.7 Legumes Baked beans, canned, no salt added 1 cup 13.9 Kidney beans, canned 1 cup 13.6 Osman beans, canned 1 cup 11.6 Lentils, boiled 1 cup 15.6 Breads, pastas, flours Bran muffins 1 medium muffin 5.2 Oatmeal, cooked 1 cup 4.0 White bread 1 slice 0.6 Whole-wheat bread 1 slice 1.9 Pasta and rice, cooked Macaroni 1 cup 2.5 Rice, brown 1 cup 3.5 Rice, white 1 cup 0.6 Spaghetti (regular) 1 cup 2.5 Nuts Almonds 1/2 cup 8.7 Peanuts 1/2 cup 7.9 Chart from [facility] 2013. SEEK IMMEDIATE MEDICAL CARE IF: You develop abdominal (belly) pain. An oral temperature above _ 101? F__develops. Repeated vomiting occurs. Blood is being passed in stools (bright red or black tarry stools). You develop any bowel problems or changes which you have not had before. Extra Information: To learn how much fiber and other nutrients are in different foods, visit the [place] Department of Agriculture (USDA) National Nutrient Database at: http://www.nal.usda.gov/f jacob/foodcomp/search/ Created using data from the USDA National Nutrient Database for Standard Reference. Available at http://www.nal.usda.gov/f jacob/foodcomp/search/. Information adapted from: [facility]? Patient Information ?2009 [employer]. [employer] 2012 http://www.ByteLight/c ontents/diverticular-dise xpe-nfjabb-ill-basics No NSAIDS for 7 Days Nonsteroidal Anti-Inflammatory Medications (NSAIDS) Non-steroidal anti-inflammatory drugs (NSAIDs) are a medication widely used to treat a wide range of conditions. Common acute (short-term) conditions that can be treated with NSAIDs include: ? headaches ? painful periods ? toothache ? soft tissue injuries such as sprains and strains ? reduce inflammation (redness and swelling) ? infections, such as the common cold or the flu (NSAIDs do not treat the underlying infections, but can help to relieve symptoms; especially fever) Common chronic (long-term) conditions that can be treated with NSAIDs include: ? most types of arthritis, including rheumatoid arthritis and osteoarthritis ? back pain ? neck pain Some NSAIDs are available mysr-yef-vkicukm, without the need for a prescription. However, because a medication is available over the counter it does not mean it is safe or suitable for everyone. Again, it is important to read the patient information leaflet that comes with your medication. NSAID drugs include: Brand: Generic: Bufferin; Graciela Aspirin; ASA Celebrex Celecoxib Zipsor; Cambia Diclofenac Motrin; Advil Ibuprofen Indosin Indometacin Actron; Orudis Ketoprofen Toradol Ketorolac Mobic Meloxicam Ponstel Mefenamic Acid Aleve; Naprosyn Naproxen Side effects: Most people take NSAIDs without having any side effects. Short term use is unlikely to cause significant problems, especially in younger patients. If side effects do occur they usually affect the stomach and can include: ? Indigestion ? Nausea ? Stomach pain ? Stomach ulcer ? Bleeding from the stomach and intestines Other side effects: ? Ringing in the ears ? itching ? Poor control of asthma ? Headache ? Allergic reactions NSAIDs are also not usually recommended for people who: ? are or ? have a history of kidney disease ? have a history of liver disease ? have active stomach ulcers (a sore in the lining of the stomach), or are at risk of developing stomach ulcers How to take NSAIDS: NSAIDS should be taken in the pill form or given by injection. If you are taking the pill form, it is best to take with food to avoid an upset stomach. IF a dose is missed: Some of these medications are taken ?as needed.? Do not take more of your NSAID than your doctor has prescribed. Follow the agxl-rvn-mfafeel labels and do not exceed the recommended dosage. If you take an NSAID daily, take the missed dose of your medication as soon as you remember it. If it is too close to the time for your next dose, skip the missed dose and go back to taking this medication at your normal time. Do not take two doses of this medication at the same time or take any extra doses of this medication. If any questions regarding your medications, contact your physician or pharmacist. Family Medicine Colon Polyps Polyps are lumps of extra tissue growing inside the body. Polyps can grow in the large intestine (colon). Most colon polyps are noncancerous (benign). However, some colon polyps can become cancerous over time. Polyps that are larger than a pea may be harmful. To be safe, caregivers remove and test all polyps. CAUSES Polyps form when mutations in the genes cause your cells to grow and divide even though no more tissue is needed. RISK FACTORS There are a number of risk factors that can increase your chances of getting colon polyps. They include: ? Being older than 50 years. ? Family history of colon polyps or colon cancer. ? Long-term colon diseases, such as colitis or Crohn disease. ? Being overweight. ? Smoking. ? Being inactive. ? Drinking too much alcohol. SYMPTOMS Most small polyps do not cause symptoms. If symptoms are present, they may include: ? Blood in the stool. The stool may look dark red or black. ? Constipation or diarrhea that lasts longer than 1 week. DIAGNOSIS People often do not know they have polyps until their caregiver finds them during a regular checkup. Your caregiver can use 4 tests to check for polyps: ? Digital rectal exam. The caregiver wears gloves and feels inside the rectum. This test would find polyps only in the rectum. ? Barium enema. The caregiver puts a liquid called barium into your rectum before taking X-rays of your colon. Barium makes your colon look white. Polyps are dark, so they are easy to see in the X-ray pictures. ? Sigmoidoscopy. A thin, flexible tube (sigmoidoscope) is placed into your rectum. The sigmoidoscope has a light and tiny camera in it. The caregiver uses the sigmoidoscope to look at the last third of your colon. ? Colonoscopy. This test is like sigmoidoscopy, but the caregiver looks at the entire colon. This is the most common method for finding and removing polyps. TREATMENT Any polyps will be removed during a sigmoidoscopy or colonoscopy. The polyps are then tested for cancer. PREVENTION To help lower your risk of getting more colon polyps: ? Eat plenty of fruits and vegetables. Avoid eating fatty foods. ? Do not smoke. ? Avoid drinking alcohol. ? Exercise every day. ? Lose weight if recommended by your caregiver. ? Eat plenty of calcium and folate. Foods that are rich in calcium include milk, cheese, and broccoli. Foods that are rich in folate include chickpeas, kidney beans, and spinach. HOME CARE INSTRUCTIONS Keep all follow-up appointments as directed by your caregiver. You may need periodic exams to check for polyps. SEEK MEDICAL CARE IF: You notice bleeding during a bowel movement. Document Released: 02/24/2005 Document Revised: 08/22/2012 Document Reviewed: 08/09/2012 ExitCare? Patient Information ?2015 Clinked. This information is not intended to replace advice given to you by your health care provider. Make sure you discuss any questions you have with your health care provider. Obstetrics and Gynecology Hemorrhoids Hemorrhoids are puffy (swollen) veins around the rectum or anus. Hemorrhoids can cause pain, itching, bleeding, or irritation. HOME CARE ? Eat foods with fiber, such as whole grains, beans, nuts, fruits, and vegetables. Ask your doctor about taking products with added fiber in them (fiber?supplements).? ? Drink enough fluid to keep your pee (urine) clear or pale yellow. ? Exercise often. ? Go to the bathroom when you have the urge to poop. Do not wait. ? Avoid straining to poop (bowel movement). ? Keep the butt area dry and clean. Use wet toilet paper or moist paper towels. ? Medicated creams and medicine inserted into the anus (anal suppository) may be used or applied as told. ? Only take medicine as told by your doctor. ? Take a warm water bath (sitz bath) for 15?20 minutes to ease pain. Do this 3?4 times a day. ? Place ice packs on the area if it is tender or puffy. Use the ice packs between the warm water baths. ? Put ice in a plastic bag. ? Place a towel between your skin and the bag. ? Leave the ice on for 15-20 minutes, 03-04 times a day. ? Do not use a donut-shaped pillow or sit on the toilet for a long time. GET HELP RIGHT AWAY IF: ? You have more pain that is not controlled by treatment or medicine. ? You have bleeding that will not stop. ? You have trouble or are unable to poop (bowel movement). ? You have pain or puffiness outside the area of the hemorrhoids. MAKE SURE YOU: ? Understand these instructions. ? Will watch your condition. ? Will get help right away if you are not doing well or get worse. Document Released: 03/09/2009 Document Revised: 05/17/2013 Document Reviewed: 04/11/2013 ExitCare? Patient Information ?2014 Clinked. This information is not intended to replace advice given to you by your health care provider. Make sure you discuss any questions you have with your health care provider. Normal [facility] Progress Note-Physicianon Progress Note-Physician Patient: ELVIN FONTAINE Age: 63 years Sex: Male : 1955 Associated Diagnoses: None Author: Jose Miguel Cody Jr., DO Preoperative Information Anesthesia history: Patient History: No prior problems.. Re-eval prior to induction: Inital eval reviewed: No significant interval change. Anesthesia results Review of Systems Constitutional: Negative except as documented in history of present illness. Cardiovascular: Negative except as documented in history of present illness. Respiratory: Negative. Health Status Allergies: Allergic Reactions (Selected) No Known Allergies, Allergies (1) Active Reaction No Known Allergies None Documented Current medications: (Selected) Inpatient Medications Ordered Lactated Ringers IV Eden 1000 mL 1,000 mL: 1,000 mL, IV, 100 mL/hr, Routine, Start date 02/15/19 7:43:00 EDT, 10 hour(s), Total volume (mL): 1,000 Sodium Chloride 0.9% IV Eden 1000 mL 1,000 mL: 1,000 mL, IV, 20 mL/hr, Routine, Start date 02/15/19 6:40:00 EDT, 50 hour(s), Total volume (mL): 1,000 Prescriptions Prescribed Suprep Bowel Prep Kit oral liquid: 177 mL, Oral, As Directed, 1 kit(s), Refill(s) 0, dilute each 177 ml bottle and drink according to box directions or as directed by physician, [facility]/pharmacy #[id number] Xarelto 20 mg oral tablet: 20 mg, Oral, Daily, X 90 day(s), # 90 tab(s), Refills(s) 0, Pharmacy: [facility]/pharmacy #[id number] Documented Medications Documented Xarelto: 20 mg, Oral, qPM, Refills(s) 0, Blood Thinner Histories Past Medical History: No active or resolved past medical history items have been selected or recorded. Family History: Entire family history is negative. Procedure history: Umbilical hernia ([id number]) on 06/14/2011 at 55 Years. Left shoulder ([id number]) on 06/14/2008 at 52 Years. Right shoulder ([id number]) on 06/14/1998 at 42 Years. Social History Social & Psychosocial Habits Alcohol 12/09/2018 Use: Current Frequency: 1-2 times per week Exercise 01/26/2019 Risk Assessment: Does not exercise Other 01/26/2019 Name: Caffeine-1 cup daily Substance Abuse 12/09/2018 Risk Assessment: Denies Substance Abuse Tobacco 12/09/2018 Tobacco Use: Former smoker, quit more Stopped at age: 47 Years 01/26/2019 Tobacco Use: Former smoker, quit more Smokeless tobacco use: Never Stopped at age: 47 Years. Physical Examination Respiratory: Lungs are clear to auscultation. Cardiovascular: Regular rhythm. Plan [place] [employer] Anesthesiologists (ASA) physical status classification: Class II. Anesthetic Preoperative Plan Anesthesia: General. . Anesthetic plan, risks, benefits, and alternatives discussed with the patient and/or family. Patient verbalized understanding. Normal [facility] Comment on above: Result Comment: Elec tronically Signed By: Jose Miguel Cody Jr., DO.marlys\Date and Time Signed: 02/15/19 07:48 EDT Coding Summary.on 02-07-2019 Coding Summary. CODING DATE: 019 FINAL [facility] STATUS: Home (Routine DC) PAYOR: [facility] [place] APC DESCRIPTION 5721 Level1 Diagnostic Tests and Related Services ADMIT DX: REASON FOR VISIT DX: R74.8 Abnormal levels of other serum enzymes FINAL DX: PRINCIPAL: K76.0 Fatty (change of) liver, not elsewhere classified SECONDARY: R74.8 Abnormal levels of other serum enzymes PYMT PROC APC STAT DESCRIPTION DOCTOR NAME DATE NOTE: The code number assigned matches the documented diagnosis and / or procedure in the patient's chart. However, the narrative phrase printed from the coding software may appear abbreviated, or result in slightly different terminology. Coded By: Loren Adkins Date Saved: 02/07/2019 12:59 pm Normal [facility] AMA Ab Scron 02-06-2019 Mitochondria M2 IgG Qn (S) <20.0 0.0-20.0 [facility] Comment on above: Result Comment: Nega tive 0.0 - 20.0 Equivocal 20.1 - 24.9 Positive >24.9 Mitochondrial (M2) Antibodies are found in 90-96% of patients with primary biliary cirrhosis. Performed at: [employer] [address] [id number] PhD Syeda Stockton Performed By: #### 2 [id number], [id number], [id number], 22457328, 3462265, 94298777, 5118447, 2816083, 8005687, 8453799 #### [facility] [address] [place] [address] Hbv Core Abon 02-06-2019 HBV core Ab IA Ql Negative Negative [facility] Comment on above: Result Comment: Perf ormed at: [employer] [address] [id number] PhD Syeda Stockton Performed By: #### 2 050894, 1289800, 21002075, 23743936, 4040445, 97021930, 8578957, 3607749, 2967629, 0888927 #### [facility] [address] [place] [address] HBV core IgM IA Ql Negative Negative [facility] Comment on above: Performed By: #### 2 270262, 9045734, 04877297, 30797131, 2990446, 77901769, 9753267, 1416775, 5410991, 3839988 #### [facility] [address] [place] [address] Hep A IgMon 02-06-2019 HAV IgM IA Ql Negative Negative [facility] Comment on above: Result Comment: Perf ormed at: [address] [id number] PhD Syeda Stockton Performed By: #### 2 175575, 2184055, 07071200, 86681329, 6116110, 62325083, 8273294, 5136157, 1255906, 6996769 #### [facility] [address] [place] [address] Hep Bs Abon 02-06-2019 HBV surface Ab Ql (S) Reactive Fis [facility] Comment on above: Result Comment: Non Reactive: Inconsistent with immunity, less than 10 mIU/mL Reactive: Consistent with immunity, greater than 9.9 mIU/mL Performed at: [address] [id number] PhD Syeda Stockton Performed By: #### 2 567139, 4630487, 95725264, 28496943, 4338010, 66199451, 8391411, 6295041, 2226087, 7566458 #### [facility] [address] [place] [address] Hep Bs Agon 02-06-2019 HBV surface Ag IA Ql Negative Negative [facility] Comment on above: Result Comment: Perf ormed at: [address] [id number] PhD Syeda Stockton Performed By: #### 2 304606, 3428593, 70840948, 23187885, 2298770, 02100196, 7840998, 8071345, 0741404, 4355699 #### [facility] [address] [place] [address] SMA Screenon 02-06-2019 Actin IgG Qn 7 unit(s) 0-19 [facility] Comment on above: Result Comment: Nega tive 0 - 19 Weak positive 20 - 30 Moderate to strong positive >30 Actin Antibodies are found in 52-85% of patients with autoimmune hepatitis or chronic active hepatitis and in 22% of patients with primary biliary cirrhosis. Performed at: [address] [id number] PhD Syeda Stockton Performed By: #### 2 082373, 5990016, 04104678, 37791346, 5165430, 59008549, 9266612, 7743074, 9790266, 1044064 #### [facility] [address] [place] [address] Coding Summary.on 02-03-2019 Coding Summary. CODING DATE: 019 FINAL [facility] STATUS: Home (Routine DC) PAYOR: [facility] [place] ADMIT DX: REASON FOR VISIT DX: R74.8 Abnormal levels of other serum enzymes FINAL DX: PRINCIPAL: R74.8 Abnormal levels of other serum enzymes SECONDARY: PROCEDURES DOCTOR NAME DATE NOTE: The code number assigned matches the documented diagnosis and / or procedure in the patient's chart. However, the narrative phrase printed from the coding software may appear abbreviated, or result in slightly different terminology. Coded By: Sammi Bennett CphT Date Saved: 02/03/2019 08:38 am Normal [facility] Ferritinon 02-02-2019 Ferritin [Mass/Vol] 271 ng/mL Normal 24-336 [facility] Comment on above: Result Comment: NORM ALS MEN <30 YRS 16-132 ng/mL MEN >30 YRS 8-338 ng/mL WOMEN (PREMEN) 6-104 ng/mL WOMEN (POSTMEN) 12-210 ng/mL Performed By: #### 2 181286, 6693290, 46434993, 82555527, 0871249, 55081506, 7213100, 3978629, 3100375, 4638835 #### [facility] [address] [place] [address] Ironon 02-02-2019 Iron [Mass/Vol] 119 microgram/dL Normal 35-153 [facility] Comment on above: Performed By: #### 2 352637, 1427577, 75123263, 58382695, 1710080, 80886675, 7680975, 9289525, 3635767, 6393692 #### [facility] [address] [place] [address] Iron Saturationon 02-02-2019 Iron binding capacity [Mass/Vol] 440 microgram/dL High 250-400 [facility] Comment on above: Performed By: #### 2 773526, 1783163, 44926835, 43272432, 3094381, 69862635, 9587739, 7108786, 5371803, 7444302 #### [facility] [address] [place] [address] Iron saturation [Mass fraction] 27 % Normal 20-50 [facility] Comment on above: Performed By: #### 2 418416, 4671333, 93591513, 61020786, 4124497, 35506016, 1753991, 1240793, 2941877, 7706233 #### [facility] [address] [place] [address] Transferrinon 02-02-2019 Transferrin [Mass/Vol] 314 mg/dL Normal 200-370 [facility] Comment on above: Order Comment: Trans emile order added by Discern Rule: gl_ftmc_add_iron_trans . Performed By: #### 2 838164, 0012207, 23681085, 75078399, 5877092, 24066840, 0943513, 0038994, 2065261, 9170698 #### [facility] [address] [place] [address] Vital Signs Date Time Vital Sign Value Performing Clinician Facility 08-07-2024 09:00-0500 Body height 175.3 cm Neva Almaguer MD Work Phone: [facility] 08-07-2024 09:00-0500 Body mass index (BMI) [Ratio] 32.49 kg/m2 Neva Almaguer MD Work Phone: [facility] 08-07-2024 09:00-0500 Body weight 99.79 kg Neva Almaguer MD Work Phone: [facility] 08-07-2024 09:00-0500 Diastolic blood pressure 70 mm[Hg] Neva Almaguer MD Work Phone: [facility] 08-07-2024 09:00-0500 Heart rate 72 /min Neva Almaguer MD Work Phone: [facility] 08-07-2024 09:00-0500 Systolic blood pressure 116 mm[Hg] Neva Almaguer MD Work Phone: [facility] 11-25-2023 15:52-0400 Body height 175.3 cm Neva Almaguer MD Work Phone: [facility] 11-25-2023 15:52-0400 Body mass index (BMI) [Ratio] 31.28 kg/m2 Neva Almaguer MD Work Phone: [facility] 11-25-2023 15:52-0400 Body weight 96.07 kg Neva Almaguer MD Work Phone: [facility] 11-25-2023 15:52-0400 Diastolic blood pressure 82 mm[Hg] Neva Almaguer MD Work Phone: [facility] 11-25-2023 15:52-0400 Heart rate 98 /min Neva Almaguer MD Work Phone: [facility] 11-25-2023 15:52-0400 Systolic blood pressure 122 mm[Hg] Neva Almaguer MD Work Phone: [facility] 11-01-2023 08:39-0400 Body height 175.[address] 11-01-2023 08:39-0400 Body mass index (BMI) [Ratio] 32.19 kg/m2 [address] 11-01-2023 08:39-0400 Body weight 98.[address] 11-01-2023 08:39-0400 Diastolic blood pressure 86 mm[Hg] [address] 11-01-2023 08:39-0400 Systolic blood pressure 140 mm[Hg] [address] 10-06-2023 20:00-0400 Diastolic blood pressure 79 mm[Hg] DO Barrera Bunting Work Phone: [facility] 10-06-2023 20:00-0400 Heart rate 88 /min DO Barrera Bunting Work Phone: [facility] 10-06-2023 20:00-0400 Respiratory rate 20 /min DO Barrera Bunting Work Phone: [facility] 10-06-2023 20:00-0400 SaO2% (BldA) [Mass fraction] 91 % DO Barrera Bunting Work Phone: [facility] 10-06-2023 20:00-0400 Systolic blood pressure 123 mm[Hg] DO Barrera Bunting Work Phone: [facility] 10-06-2023 15:15-0400 Body temperature 98.2 [degF] DO Barrera Bunting Work Phone: [facility] 10-06-2023 10:45-0400 Body height 175.26 cm DO Barrera Bunting Work Phone: [facility] 10-06-2023 10:45-0400 Body weight 102 kg DO Barrera Bunting Work Phone: [facility] 09-29-2023 13:02-0400 Diastolic blood pressure 84 mm[Hg] Neva Almaguer MD Work Phone: [facility] 09-29-2023 13:02-0400 Heart rate 70 /min Neva Almaguer MD Work Phone: [facility] 09-29-2023 13:02-0400 Systolic blood pressure 138 mm[Hg] Neva Almaguer MD Work Phone: [facility] 09-29-2023 13:01-040 Body height 175.3 cm Neva Almaguer MD Work Phone: [facility] 09-29-2023 13:01-0400 Body mass index (BMI) [Ratio] 32.19 kg/m2 Neva Almaguer MD Work Phone: [facility] 09-29-2023 13:01040 Body weight 98.88 kg Neva Almaguer MD Work Phone: [facility] Encounters Encounter Date Encounter Type Care Provider Facility Start: 08-07-2024 End: 08-07-2024 [facility] Start: 08-07-2024 End: 08-07-2024 Office outpatient visit 25 minutes Neva Almaguer MD Work Phone: [facility] Comment on above: Single vessel porter ry artery disease (Primary Dx); Mixed hyperlipidemia; Dyspnea on exertion; Essential hypertension; Abnormal stress test; BMI 32.0-32.9,adult; Former smoker Start: 07-28-2024 End: 07-28-2024 Patient encounter procedure Barrera Bunting DO Work Phone: [facility] [place] Work Phone: Start: 07-28-2024 End: 07-28-2024 ambulatory Barrera Bunting DO Work Phone: [facility] Work Phone: Start: 07-24-2024 End: 07-24-2024 Patient encounter procedure Barrera Bunting DO Work Phone: [facility] [place] Work Phone: Start: 07-24-2024 End: 07-24-2024 ambulatory Barrera Bunting DO Work Phone: [facility] Work Phone: Start: 11-25-2023 End: 11-25-2023 Office outpatient visit 25 minutes Neva Almaguer MD Work Phone: [facility] Comment on above: Single vessel porter ry artery disease (Primary Dx); Exertional angina (CMS-HCC); Abnormal stress test; Dyspnea on exertion; Essential hypertension; Mixed hyperlipidemia; BMI 31.0-31.9,adult; Former smoker Start: 11-25-2023 End: 11-25-2023 ambulatory [facility] Ambulatory Start: 11-01-2023 End: 11-01-2023 Subsequent hospital visit by physician Sylvia M[place] Echo/Vasc Room 2 [facility] Comment on above: Exertional angina (C MS-HCC); Dyspnea on exertion; Abnormal stress test; Essential hypertension Start: 11-01-2023 End: 11-01-2023 ambulatory [facility] Start: 10-07-2023 End: 10-07-2023 Patient encounter procedure DO Barrera Bunting Work Phone: [facility] [address] Work Phone: Start: 10-07-2023 End: 10-07-2023 ambulatory DO Barrera Bunting Work Phone: [facility] Work Phone: Start: 10-06-2023 End: 10-06-2023 ambulatory DO Barrera Bunting Work Phone: [facility] Work Phone: Start: 10-06-2023 End: 10-06-2023 Patient encounter procedure DO Barrera Bunting Work Phone: [facility] [address] Work Phone: Start: 10-06-2023 End: 10-06-2023 Admission to same day surgery center DO Barrera Bunting Work Phone: [facility] Work Phone: Start: 10-06-2023 End: 10-06-2023 ambulatory DO Barrera Bunting Work Phone: [facility] Work Phone: Start: 10-04-2023 End: 10-04-2023 Patient encounter procedure DO Barrera Bunting Work Phone: [facility] Work Phone: Start: 10-04-2023 End: 10-04-2023 ambulatory DO Barrrea Bunting Work Phone: [facility] Work Phone: Start: 10-04-2023 Encounter for preprocedural laboratory examination Neva Almaguer [facility] Start: 09-29-2023 End: 09-29-2023 Office consultation new/estab patient 80 min Neva Almaguer MD Work Phone: [facility] Comment on above: Exertional angina (C MS-HCC) (Primary Dx); Dyspnea on exertion; Mixed hyperlipidemia; Abnormal stress test; BMI 32.0-32.9,adult; Former smoker; Essential hypertension Start: 09-29-2023 End: 09-29-2023 ambulatory [facility] Start: 09-17-2023 End: 09-17-2023 Patient encounter procedure DO Barrera Bunting Work Phone: [facility] Work Phone: Start: 09-17-2023 End: 09-17-2023 ambulatory DO Barrera Bunting Work Phone: [facility] Work Phone: Start: 09-07-2023 End: 09-07-2023 Patient encounter procedure DO Barrera Bunting Work Phone: [facility] Work Phone: Start: 09-07-2023 End: 09-07-2023 ambulatory DO Barrera Bunting Work Phone: [facility] Work Phone: Procedures Date Procedure Procedure Detail Performing Clinician Start: 07-24-2024 Plain chest X-ray Darri n Bunting DO Work Phone: Start: 11-01-2023 TRANSTHORACIC ECHO ( TTE) COMPLETE NEVA ALMAGUER Start: 10-06-[address] acement 0 DO Barrera Bunting Work Phone: Start: 10-06-2023 CL Ivus Initial Vessel DO Barrera Bunting Work Phone: Start: 10-06-2023 CL LHC & COR Angio DO D arrin Bunting Work Phone: Start: 10-06-2023 CL S/I Angio Ext Rt DO Barrera Bunting Work Phone: Start: 10-06-2023 CL Stent 1st Vessel LAD VERONICA DO Barrera Bunting Work Phone: Start: 10-06-2023 DO Barrera Bunting Work Phone: Start: 09-29-2023 ECG 12-LEAD NEVA ABDI Start: 09-29-2023 Ecg routine ecg w/le ast 12 lds w/i&r Neva Almaguer MD Work Phone: Start: 09-07-2023 Plain chest X-ray DO Da rrin Bunting Work Phone: Start: 02-15-2019 Colonoscopy Sylvia 2 Plan of Treatment Date Care Activity Detail Author Start: 02-15-2029 Screening for malign ant neoplasm of colon [facility] Start: 05-11-2025 End: 05-11-2025 Patient encounter procedure 05/11/2025 9:30 AM EST Office Visit [facility] [address] [place] [address] Neva Almaguer MD [address] [facility] [address] [place] [address] [facility] Start: 06-26-2024 End: 06-26-2024 Patient encounter procedure 06/26/2024 8:30 AM EST Office Visit [facility] [address] [place] [address] Neva Almaguer MD [address] [facility] [address] [place] [address] [facility] Start: 02-13-2024 COVID-19 Vaccine ( season) COVID-19 Vaccine ( season) [facility] Start: 02-13-2024 Influenza vaccination Influenz a Vaccine (Season Ended) [facility] Start: 11-25-2023 End: 11-25-2023 Patient encounter procedure 11/25/2023 3:30 PM EDT Office Visit [facility] [address] [place] [address] [facility]uer [facility] [facility] [address] [place] [address] [facility] Start: 11-25-2023 End: 11-24-2024 Basic metabolic 2000 panel - Serum or Plasma Basic Metabolic Panel Lab Routine Single vessel coronary artery disease Essential hypertension Expected: 11/25/2023 (Approximate), Expires: 11/24/2024 [facility] Work Phone: Comment on above: Expected: 11/25/2023 (Approximate), Expires: 11/24/2024 Start: 11-25-2023 End: 11-24-2024 Comprehensive metabolic 2000 panel - Serum or Plasma Comprehensive Metabolic Panel Lab Routine Single vessel coronary artery disease Essential hypertension Expected: 11/25/2023 (Approximate), Expires: 11/24/2024 [facility] Work Phone: Comment on above: Expected: 11/25/2023 (Approximate), Expires: 11/24/2024 Start: 11-25-2023 End: 11-24-2024 Lipid 1996 panel - Serum or Plasma Lipid Panel Lab Routine Mixed hyperlipidemia Expected: 11/25/2023 (Approximate), Expires: 11/24/2024 [facility] Service Area Work Phone: Comment on above: Expected: 11/25/2023 (Approximate), Expires: 11/24/2024 Start: 11-01-2023 End: 11-01-2023 Patient encounter procedure 11/01/2023 8:45 AM EDT Appointment [facility] [address] [facility] [address] [place] [address] [facility] Start: 10-07-2023 [facility] Start: 10-06-2023 End: 10-06-2023 [facility] Start: 09-29-2023 End: 09-28-2025 US Heart Transthoracic Transthoracic Echo Complete Echocardiography Routine Exertional angina ([facility]-HCC) Dyspnea on exertion Abnormal stress test Essential hypertension Expected: 09/29/2023 (Approximate), Expires: 09/28/2025 [facility] Service Area Work Phone: Comment on above: Expected: 09/29/2023 (Approximate), Expires: 09/28/2025 Start: 02-12-2023 COVID-19 Vaccine ( season) COVID-19 Vaccine ( season) [facility] Start: 2022 Abdominal aortic aneurysm screening Abdominal Aortic Aneurysm (AAA) Screening [facility] Start: 2017 Hepatitis B Vaccines (1 of 3 - Risk 3-dose series) Hepatitis B Vaccines (1 of 3 - Risk 3-dose series) [facility] Start: 2017 RSV High Risk: (Elde rly (60+) or Population) (1 - Risk 60-74 years 1-dose series) RSV High Risk: (Elderly (60+) or Population) (1 - Risk 60-74 years 1-dose series) [facility] Start: 2017 RSV patient s and/or patients aged 60+ years (1 - 1-dose 60+ series) RSV patients and/or patients aged 60+ years (1 - 1-dose 60+ series) [facility] Start: 08-21-2007 Zoster Vaccines (1 o f 2) Zoster Vaccines (1 of 2) [facility] Start: 08-21-1979 DTaP/Tdap/Td Vaccine s (1 - Tdap) DTaP/Tdap/Td Vaccines (1 - Tdap) [facility] Start: 1976 Hepatitis A Vaccines (1 of 2 - Risk 2-dose series) Hepatitis A Vaccines (1 of 2 - Risk 2-dose series) [facility] Start: 1976 Pneumococcal vaccination Pneumococcal Vaccine (1 of 2 - PCV) [facility] Start: 08-21-1975 Diabetes mellitus screening Diabetes Screening [facility] Start: 08-21-1975 Hepatitis C screening Hepatitis C Sc reening [facility] Start: 08-21-1963 Pneumococcal Vaccine : 65+ Years (1 of 2 - PCV) Pneumococcal Vaccine: 65+ Years (1 of 2 - PCV) [facility] Start: 1958 MMR Vaccines (1 of 1 - Standard series) MMR Vaccines (1 of 1 - Standard series) [facility] Start: 1957 Lipid panel Lipid Panel [facility] Start: 1957 Medicare Annual Wellness Visit Medicare Annual Wellness Visit (AWV) [facility] Start: 1955 Screening for malign ant neoplasm of colon [facility] Hepatitis B virus surface Ab [Presence] in Serum [facility] Hepatitis B virus surface Ab [Presence] in Serum [facility] Hepatitis B virus surface Ag [Presence] in Serum or Plasma by Immunoassay [facility] Hepatitis B virus surface Ag [Presence] in Serum or Plasma by Immunoassay [facility] Hepatitis C virus Ig G Ab [Presence] in Serum or Plasma by Immunoassay [facility] Hepatitis C virus Ig G Ab [Presence] in Serum or Plasma by Immunoassay [facility] Patient referral [facility] Work Phone: End: 11-01-2023 US Heart Transthoracic [facility] Service Area Work Phone: Comment on above: Once for 1 Occurrenc es starting 11/01/2023 until 11/01/2023 Immunizations Immunization Date Immunization Notes Care Provider [facility] 02-22-2024 influenza, seasonal, injectable Neva Almaguer MD Work Phone: [facility] 04-11-2021 COVID-19 mRNA-1273 (Moderna) DO Barrera Bunting Work Phone: [facility] 07-10-2020 COVID-19 mRNA-1273 (Moderna) DO Barrera Bunting Work Phone: [facility] 06-12-2020 COVID-19 mRNA-1273 (Moderna) DO Barrera Bunting Work Phone: [facility] Payers Date Payer Category Payer Unknown [id number] 2023 Self-pay [id number] 2022 Unknown [id number] 2022 Medicare [id number] 2022 Medicare [id number] 1955 Unknown [id number] 2.16.8 [id number] 1955 Unknown [id number] 2.16. [id number] 1955 Unknown [id number] 2.16.8 [id number] 1955 Unknown [id number] 2.16.8 [id number] Unknown [id number] 2.16.8 [id number] Unknown [id number] 2.16.8 [id number] Unknown [id number] 2.16.8 [id number] Unknown [id number] 2.16.8 [id number] Unknown [id number] 2.16.8 [id number] Unknown [id number] 2.16.8 [id number] Unknown [id number] 2.16.8 [id number] Social History Date Type Detail Facility Start: 12-02-2018 End: 10-04-2023 Tobacco smoking status CAIS Never smoked tobacco (finding) [facility] Start: 1955 Sex Assigned At Male [facility] Start: 09-29-2023 End: 10-06-2023 Tobacco smoking status NHIS Ex-smoker [facility] Work Phone: End: 09-29-2003 History of tobacco use Current smoker [facility] Work Phone: End: 09-29-2003 History of tobacco use Cigarette Smoker [facility] Work Phone: Start: 09-29-2023 Tobacco use and exposure Smokeless tobacco non-user [facility] Work Phone: Start: 09-29-2023 End: 08-07-2024 Alcoholic beverage intake Current drinker of alcohol (finding) [facility] Work Phone: Start: 09-29-2023 End: 08-07-2024 History of Social function [facility] Work Phone: Start: 09-29-2023 End: 08-07-2024 Tobacco use panel [facility] Work Phone: Start: 09-29-2023 Alcohol Comment social [facility] Work Phone: Start: 1955 Sex assigned at Not on file [facility] Work Phone: Start: 09-19-2023 End: 08-07-2024 Exposure to SARS-CoV-2 (event) Not sure [facility] Start: 07-25-2024 End: 07-29-2024 Sex Male (finding) [facility] Medical Equipment Procedure Code Equipment Code Equipment Origin al Text Equipment Identifier Dates CL STENT CALOS FRONTIER 3.5 X 15 FDA Start: 10-06-2023 CL STENT CALOS FRONTIER 4.0 X 30 FDA Start: 10-06-2023 Femoral artery closure plug/patch, synthetic polymer [id number] FDA Start: 10-06-2023 CL STENT CALOS FRONTIER 3.5 X 15 FDA Start: 10-06-2023 CL STENT CALOS FRONTIER 4.0 X 30 FDA Start: 10-06-2023 CL STENT CALOS FRONTIER 3.5 X 15 FDA Start: 10-06-2023 CL STENT CALOS FRONTIER 4.0 X 30 FDA Start: 10-06-2023 Goals Date Patient Goal Desired Activity /State Functional Status Date Assessment Result Facility 10-06-2023 Functional status Patient at [facility] Work Phone: Mental Status Date Assessment Result Facility 10-06-2023 Cognitive function Cognitive Sta tus Patient at Baseline [facility] Work Phone: Clinical Notes 09-29-2023 to 08-07-2024 Neva Almaguer MD - 08/07/2024 8:50 AM ESTPatient InstructionsAttachmentsNeva Almaguer MD - 11/25/2023 3:30 PM EDTPatient Instructions Note Date & Type Note Facility 08-07-2024 History of Present illness Narrative Subjective Elvin Fontaine is a 68 y.o. male Chief Complaint Follow-up HPI Patient is here for follow-up continue management for coronary artery disease prior PCI to the LAD after presentation with angina equivalent and positive stress test, hyperlipidemia and obesity. Since last time I saw him he reports he is feeling well. He denies any complaint of chest pain, palpitation, lightheadedness, dizziness or syncope. He remains active inscribe functional class I. Assessment 1. Single-vessel coronary artery disease with recent presentation with angina equivalent shortness of breath completely resolved after PCI to the LAD stage I hypertension controlled on current treatment 2. Probable stage I hypertension 3. Hyperlipidemia on atorvastatin 40 mg daily LDL is 70 4. Obesity 5. Former smoker 6. Previous complaint of occasional nocturnal chest heaviness suspicious of gastroesophageal flux disease. Resolved Plan 1. I advised the patient to continue send medical regimen with the exception of adding lisinopril 2.5 mg daily 2. I reviewed the result of his recent lab work 3. We discussed risk factor modification with special emphasis on weight loss and treatment for hyperlipidemia 4. I we will see him back in 9 months we will plan to repeat his lab work Review of Systems All other systems reviewed and are negative. Vitals: 08/07/24 0900 BP: 116/70 BP Location: Left arm Patient Position: Sitting Pulse: 72 Weight: 99.8 kg (220 lb) Height: 1.753 m (5' 9 ) Objective Physical Exam Constitutional: Appearance: Normal appearance. HENT: Nose: Nose normal. Neck: Vascular: No carotid bruit. Cardiovascular: Rate and Rhythm: Normal rate. Pulses: Normal pulses. Heart sounds: Normal heart sounds. Pulmonary: Effort: Pulmonary effort is normal. Abdominal: General: Bowel sounds are normal. Palpations: Abdomen is soft. Musculoskeletal: General: Normal range of motion. Cervical back: Normal range of motion. Right lower leg: No edema. Left lower leg: No edema. Skin: General: Skin is warm and dry. Neurological: General: No focal deficit present. Mental Status: He is alert. Psychiatric: Mood and Affect: Mood normal. Behavior: Behavior normal. Thought Content: Thought content normal. Judgment: Judgment normal. Allergies Patient has no known allergies. Current Medications Current Outpatient Medications: aspirin 81 mg EC tablet, Take 1 tablet (81 mg) by mouth once daily., Disp: , Rfl: atorvastatin (Lipitor) 40 mg tablet, Take 1 tablet (40 mg) by mouth once daily., Disp: 90 tablet, Rfl: 3 clopidogrel (Plavix) 75 mg tablet, Take 1 tablet (75 mg) by mouth once daily., Disp: 90 tablet, Rfl: 3 melatonin (Melatin) 3 mg tablet, Take 1 tablet (3 mg) by mouth as needed at bedtime for sleep., Disp: , Rfl: metoprolol succinate XL (Toprol-XL) 25 mg 24 hr tablet, Take 1 tablet (25 mg) by mouth once daily. Do not crush or chew., Disp: 90 tablet, Rfl: 3 multivitamin tablet, Take 1 tablet by mouth once daily., Disp: , Rfl: nitroglycerin (Nitrostat) 0.4 mg SL tablet, Place 1 tablet (0.4 mg) under the tongue every 5 minutes if needed for chest pain. May repeat dose every 5 minutes for up to 3 doses total., Disp: 100 tablet, Rfl: 11 lisinopril 2.5 mg tablet, Take 1 tablet (2.5 mg) by mouth once daily., Disp: 90 tablet, Rfl: 3 Assessment/Plan 1. Single vessel coronary artery disease Follow Up In Cardiology Follow Up In Cardiology lisinopril 2.5 mg tablet 2. Mixed hyperlipidemia 3. Dyspnea on exertion 4. Essential hypertension 5. Abnormal stress test 6. BMI 32.0-32.9,adult 7. Former smoker Scribe Attestation By signing my name below, I, Akshat Majano LPN attest that this documentation has been prepared under the direction and in the presence of Neva Almaguer MD. Provider Attestation - Scribe documentation All medical record entries made by the Scribe were at my direction and personally dictated by me. I have reviewed the chart and agree that the record accurately reflects my personal performance of the history, physical exam, discussion and plan. documented in this encounter [facility] Work Phone: 08-07-2024 Instructions Trixie Keita LPN - 08/07/2024 8:50 AM EST Please bring all medicines, vitamins, and herbal supplements with you when you come to the office. Prescriptions will not be filled unless you are compliant with your follow up appointments or have a follow up appointment scheduled as per instruction of your physician. Refills should be requested at the time of your visit. BMI was above normal measurement. Current weight: 99.8 kg (220 lb) Weight change since last visit (-) denotes wt loss 8.2 lbs Weight loss needed to achieve BMI 25: 51.1 Lbs Weight loss needed to achieve BMI 30: 17.3 Lbs Provided instructions on dietary changes Provided instructions on exercise. The following attachments cannot be sent through Care Everywhere.Heart Healthy Diet (Citizen Of [place])documented in this encounter [facility] Work Phone: 11-25-2023 History of Present illness Narrative Subjective Elvin Fontaine is a 68 y.o. male Chief Complaint Follow-up HPI Patient is here for follow-up continue management for recent evaluation for class III shortness of breath with abnormal stress test. Patient was referred for invasive evaluation was found to have severe disease of the LAD and underwent PCI PCI. His symptoms improved but he did appear to have intolerance to Brilinta due to shortness of breath. He described complete resolution of his symptoms following switching him to Plavix. He described functional class I. He denies lightheadedness, dizziness or syncope Assessment 1. Single-vessel coronary artery disease with recent presentation with angina equivalent shortness of breath completely resolved after PCI to the LAD stage I hypertension controlled on current treatment 2. Probable stage I hypertension 3. Hyperlipidemia on atorvastatin 20 mg daily 4. Obesity 5. Former smoker 6. Patient report occasional nocturnal chest heaviness suspicious of gastroesophageal flux disease. Report improvement Plan 1. I advised the patient to continue send medical regimen with the exception of increasing atorvastatin to 40 mg daily 2. I reviewed the result of his recent cardiac catheterization cardiac anatomy 3. We discussed risk factor modification with special emphasis on weight loss and treatment for hyperlipidemia 4. I we will see him back in 6 months we will plan to repeat his lab work 5. Echocardiogram was normal Review of Systems All other systems reviewed and are negative. Vitals: 11/25/23 1552 BP: 122/82 BP Location: Left arm Patient Position: Sitting Pulse: 98 Weight: 96.1 kg (211 lb 12.8 oz) Height: 1.753 m (5' 9 ) Objective Physical Exam Constitutional: Appearance: Normal appearance. HENT: Nose: Nose normal. Neck: Vascular: No carotid bruit. Cardiovascular: Rate and Rhythm: Normal rate. Pulses: Normal pulses. Heart sounds: Normal heart sounds. Pulmonary: Effort: Pulmonary effort is normal. Abdominal: General: Bowel sounds are normal. Palpations: Abdomen is soft. Musculoskeletal: General: Normal range of motion. Cervical back: Normal range of motion. Right lower leg: No edema. Left lower leg: No edema. Skin: General: Skin is warm and dry. Neurological: General: No focal deficit present. Mental Status: He is alert. Psychiatric: Mood and Affect: Mood normal. Behavior: Behavior normal. Thought Content: Thought content normal. Judgment: Judgment normal. Allergies Patient has no known allergies. Current Medications Current Outpatient Medications: aspirin 81 mg EC tablet, Take 1 tablet (81 mg) by mouth once daily., Disp: , Rfl: cholecalciferol (Vitamin D3) 400 unit capsule, Take 5 capsules (50 mcg) by mouth once daily., Disp: , Rfl: clopidogrel (Plavix) 75 mg tablet, Take 1 tablet (75 mg) by mouth once daily., Disp: 90 tablet, Rfl: 3 melatonin (Melatin) 3 mg tablet, Take 1 tablet (3 mg) by mouth as needed at bedtime for sleep., Disp: , Rfl: metoprolol succinate XL (Toprol-XL) 25 mg 24 hr tablet, Take 1 tablet (25 mg) by mouth once daily. Do not crush or chew., Disp: 90 tablet, Rfl: 3 multivitamin tablet, Take 1 tablet by mouth once daily., Disp: , Rfl: nitroglycerin (Nitrostat) 0.4 mg SL tablet, Place 1 tablet (0.4 mg) under the tongue every 5 minutes if needed for chest pain. May repeat dose every 5 minutes for up to 3 doses total., Disp: 100 tablet, Rfl: 11 atorvastatin (Lipitor) 40 mg tablet, Take 1 tablet (40 mg) by mouth once daily., Disp: 90 tablet, Rfl: 3 Assessment/Plan 1. Single vessel coronary artery disease Follow Up In Cardiology Comprehensive Metabolic Panel Basic Metabolic Panel Comprehensive Metabolic Panel Basic Metabolic Panel 2. Exertional angina (CMS-HCC) Follow Up In Cardiology 3. Abnormal stress test 4. Dyspnea on exertion 5. Essential hypertension Comprehensive Metabolic Panel Basic Metabolic Panel Comprehensive Metabolic Panel Basic Metabolic Panel 6. Mixed hyperlipidemia Lipid Panel atorvastatin (Lipitor) 40 mg tablet Lipid Panel 7. BMI 31.0-31.9,adult 8. Former smoker Scribe Attestation By signing my name below, I, Ema Bain LPN , Scribe attest that this documentation has been prepared under the direction and in the presence of Neva Almaguer MD. Provider Attestation - Scribe documentation All medical record entries made by the Scribe were at my direction and personally dictated by me. I have reviewed the chart and agree that the record accurately reflects my personal performance of the history, physical exam, discussion and plan. documented in this encounter [facility] Work Phone: 11-25-2023 Instructions Ema Rodriguez LPN - 11/25/2023 3:30 PM EDT BMI was above normal measurement. Current weight: 96.1 kg (211 lb 12.8 oz) Weight change since last visit (-) denotes wt loss -6.2 lbs Weight loss needed to achieve BMI 25: 42.9 Lbs Weight loss needed to achieve BMI 30: 9.1 Lbs Provided instructions on dietary changes.Please bring all medicines, vitamins, and herbal supplements with you when you come to the office. Prescriptions will not be filled unless you are compliant with your follow up appointments or have a follow up appointment scheduled as per instruction of your physician. Refills should be requested at the time of your visit. documented in this encounter [facility] Work Phone: 10-06-2023 Procedure note [facility] 10-06-2023 Consult note Note Date/Time October 06, 2023 2:35pm [facility] [address] [place] [address] Cardiology Consult Note Signed Patient: Elvin Fontaine MR#: [id number] : 1955 Acct:[id number] Age/Sex: 68 / M Adm Date: 4 Loc: Room: Type: [facility] Attending Dr: Neva Almaguer MD Copies to: DO Neva Grijalva MD W Scott Sheldon, DO~ Cardiology HPI History of Present Illness Consult Date: 10/06/23 Reason for Consult: Abnormal stress testing, ASHD HPI: Mr. Fontaine is a 68 year old male seen in interventional cardiology consultation request Dr. Almaguer following diagnostic outpatient catheterization revealingsevere proximal/mid LAD disease following abnormal stress testing and symptoms of angina and exertional dyspnea. Catheterization reviewed with Dr. Almaguer today revealing severe 75 to 95% proximal/mid LAD disease, tandem with 3 separate lesions spanning the first diagonal branch with RADHA II flow. Plan this time is proceed with urgent ad hoc PCI of the mid LAD Review of Systems Review of Systems All other systems reviewed & are negative unless noted below or in HPI Constitutional Constitutional: Reports as per HPI [facility] Medical History (Updated 10/06/23 @ 14:09 by Esdras Blas DO) Skin cancer Arthritis History of DVT (deep vein thrombosis) Hypercholesteremia Hypertension Surgical History History of inguinal hernia repair H/O local excision of skin lesion History of repair of rotator cuff bilateral History of umbilical hernia repair Family History (Updated 10/04/23 @ 08:29 by Lisa Leblanc RN) Father Dementia Mother Dementia Social History Smoking Status: Former smoker Substance Use Type: Alcohol Substance Abuse Comment: few beers couple times a week Meds Medications and Allergies Allergies No Known Allergies Allergy (Verified 10/04/23 08:37) Home Medications aspirin 81 mg tablet,delayed release (Adult Low Dose Aspirin) 81 mg PO DAILY 10/04/23 [History Confirmed 10/06/23] atorvastatin 20 mg tablet 20 mg PO QHS 10/04/23 [History Confirmed 10/06/23] metoprolol succinate 25 mg tablet,extended release 24 hr (Toprol XL) 25 mg PO QHS 10/04/23 [History Confirmed 10/06/23] nitroglycerin 0.4 mg sublingual tablet (Nitrostat) 0.4 mg sublingual Q5-15M PRN chest pain 04/22/24 [History Confirmed 10/04/23] cholecalciferol (vitamin D3) 10 mcg (400 unit) tablet (Delta D3) 50 mcg PO DAILY10/06/23 [History Confirmed 10/06/23] multivitamin 1 tab PO DAILY 10/06/23 [History Confirmed 10/06/23] ticagrelor 90 mg tablet (Brilinta) 90 mg PO BID #180 tabs 10/06/23 [Rx] Exam Physical Exam Vital Signs: Temp Pulse Resp BP Pulse Ox O2 Del Method 97.6 F 83 18 159/99 H 96 Room Air 10/06/23 10:45 10/06/23 10:45 10/06/23 10:45 10/06/23 10:45 10/06/23 10:45 10/06/23 10:45 Const General: cooperative, comfortable, no acute distress and well developed Nutritional Appearance: average body habitus Orientation: alert, awake and oriented x3 HEENT Head: normal to inspection Eyes General: appearance normal, both eyes and all related structures Neck Neck: normal visual inspection Chest Chest palpation & inspection: normal inspection of the chest Resp Effort & Inspection: normal respiratory effort Auscultation: clear to auscultation bilaterally Cardio Palpation: normal PMI Rate: regular rate Rhythm: regular rhythm Heart Sounds: S1 normal, S2 normal and no murmurs Pulses: radial pulses present and femoral pulses present GI Palpation: soft Skin General: no rashes or lesions noted Neuro General: patient alert, patient awake and patient oriented x3 Cognition: normal cognition Speech: speech normal Extrem General: no clubbing, cyanosis or edema Results - Cardiology Labs Lab results: Intake and Output 10/05/23 10/06/23 10/06/23 23:59 07:59 15:59 Other: Weight 102 kg Patient Weight 10/06/23 23:59 Weight 102 kg A&P - Cardiology (1) Abnormal cardiovascular stress test: Code(s): R94.39 - Abnormal result of other cardiovascular function study (2) Angina pectoris: Code(s): I20.9 - Angina pectoris, unspecified (3) Hypercholesteremia: Code(s): E78.00 - Pure hypercholesterolemia, unspecified (4) Hypertension: Code(s): I10 - Essential (primary) hypertension Plan PCI LAD Documented By: Esdras Blas DO 10/06/23 1432 Signed By: <Electronically signed by Esdras Blas DO> 10/06/23 1435 [facility] Work Phone: 1(463) 264-909204-24-2024 Discharge summary Author Esdras Blas [facility] October 06, 2023 2:14pm Note Date/Time October 06, 2023 2:1 2pm [facility] [address] [place] [address] Discharge Summary Signed Patient: Elvin Fontaine MR#: [id number] : 1955 Acct:[id number] Age/Sex: 68 / M Adm Date: 4 Loc: CL Room: Attending Dr: Neva Almaguer MD Copies to: DO Neva Grijalva MD W Scott Sheldon, DO~ Providers Date of Discharge: 10/06/23 Discharging Provider: Esdras Blas Primary Care Provider: Barrera Arriola Discharge Diagnosis (1) Abnormal cardiovascular stress test: (2) Angina pectoris: (3) Hypercholesteremia: (4) Hypertension: Final Diagnosis Final Discharge Diagnosis: 1. Single-vessel ASHD involving proximal/mid LAD 2. PCI proximal/mid LAD x 2 VERONICA Summary Hospital Course Hospital course: 68-year-old presents for outpatient elective heart catheterization following abnormal stress imaging, and symptoms of angina/exertional dyspnea and very low-level stress testing. Catheterization performed by Dr. Almaguer revealed severe single- vessel ASHD involving proximal/mid LAD with otherwise normal left ventricular function. Patient underwent ad hoc elective PCI of proximal/mid LADwith 4 x 30 and 3.5 x 15 mm [place] stents with IVUS interrogation and post dilation with a 4.5 mm noncompliant balloon without complications Patient will be discharged later this evening to receive ongoing DAPT for 6 to 12 months Condition Condition at Discharge: Stable Status at Discharge Functional status at discharge: independent ambulation Overall status at discharge: patient is back to baseline Time Spent with Patient Time spent providing/coordinating discharge services (# min): 15 Surgeries and Procedures Operation Date: 10/06/23 12:15 Actual Procedures p CL [facility] Angio - Neva Almaguer MD Single-vessel PCI, DIONISIO Blas DO IVUS single-vessel, Colette Blas DO Complications Complications: None Discharge Plan Discharge Plan Patient Disposition: Home Diet: Low-Cholesterol Additional Instructions: DISCHARGE INSTRUCTIONS FOR ANGIOPLASTY/CORONARY/PERIPHERAL/STENT IMPLANT FOR ADULT ANTICOAGULATION -Since the greatest risk of a blood clot forming with the stent occurs in the first 2-3 weeks after implantation, you will need to take anticoagulants for at least 6 months ANTICOAGULATION MEDICATION [INSERT MEDICATION NAME: Aspirin 81mg once a day, Aspirin 325mg once a day, Clopidogrel (Plavix) 75mg one tablet, Prasugrel (Effient) 10mg once a day once a day, Ticagrelor (Brilinta) 90mg twice a day] STATIN MEDICATION [INSERT MEDICATION NAME: atorvastatin (Lipitor) 80 mg or rosuvastatin (Crestor) 40mg] [Drug-Eluting Stent (VERONICA) duration] DO NOT discontinue Brilinta/Aspirin during the first few months regardless of what you are advised by your family doctor or pharmacist, without first calling the cook dinner who implanted the stent. If you require pain relief during this time, please take only ACETAMINOPHEN (TYLENOL)- NO additional aspirin or ibuprofen. DISCHARGE ACTIVITIES ARE FOLLOWS: First week after discharge: -Take it easy at home, no strenuous activity. -Do not lift or pull objects over 10-15 pounds, including children, and groceries for four weeks. If puncture site is at wrist do NOT lift more than three pounds for three days. - May walk up stairs. -May shower. -No excessive scrubbing of the affected site (groin). -May ride in car. -May resume sexual intercourse after 1-2 weeks. -No MRI for 12 days. -May drive in 4-7 days. -If puncture site is at the wrist do not manipulate the wrist for 24 hours, and no soaking wrist for three days. Second Week: -May take a bath -May start walking 3 times a week for 15-20 minutes at a leisurely pace. You should be able to carry on a conversation comfortably without feeling winded. -No strenuous activity as in jogging, running, weight lifting, stair steppers, etc. until the cook dinner approves these activities. Check with the cook dinner on your first follow-up visit. CALL YOUR WATER SOFTENER SERVICER AND INSTALLER: -If bleeding should occur from the catheter insertion site- apply pressure to the site then immediately call us. -Report any fever, redness, drainage, increased swelling, or firmness at the catheter insertion site. Some bruising or slight swelling may be present at thetime of discharge. -Should arm or leg become cold, numb, white, or blue, contact the cook dinner immediately. -IF you should experience episodes of angina, e.g. chest discomfort, heaviness, tightness, pressure burning with or without radiation to the neck, jaw, arms or back- use 1 Nitrostat tablet under your tongue every 5-10 minutes and up to three tablets. IF NO RELIEF, CALL 911 or GO TO THE NEAREST EMERGENCY ROOM. -Please notify our office if you have recurrent angina. The attending cook dinner or a nurse clinician should provide you with specificinstructions regarding activity, diet, medications, and further follow up for you. Follow the medication instructions provided on your discharge. If the dosages and instructions on this sheet differ from the dosage and instructions on the bottle, follow the instructions on the bottle. [facility] is not responsible for incorrect prescription information provided by thepatient during their visit. Do not stop your medications without consulting your health care provider. Please take the list with you to your next doctor's appointment. Prescriptions: New Brilinta 90 mg tablet 90 mg PO BID Qty: 180 2RF Continued atorvastatin 20 mg tablet 20 mg PO QHS metoprolol succinate [Toprol XL] 25 mg tablet extended release 24 hr 25 mg PO QHS nitroglycerin [Nitrostat] 0.4 mg tablet, sublingual 0.4 mg sublingual Q5-15M PRN (Reason: chest pain) Rx Instructions: do not exceed 3 doses per episode aspirin [Adult Low Dose Aspirin] 81 mg tablet,delayed release (DR/EC) 81 mg PO DAILY cholecalciferol (vitamin D3) [Delta D3] 10 mcg (400 unit) tablet 50 mcg PO DAILY multivitamin Tablet 1 tab PO DAILY Follow Up: Neva Almaguer MD [Active Staff] - Barrera Arriola DO [Primary Care Provider] - Exam Physical Exam Vital Signs: Temp Pulse Resp BP Pulse Ox O2 Del Method 97.6 F 83 18 159/99 H 96 Room Air 10/06/23 10:45 10/06/23 10:45 10/06/23 10:45 10/06/23 10:45 10/06/23 10:45 10/06/23 10:45 Diagnostic Studies Completed and Pending Studies Pending studies at discharge: 10/06/23 14:06 CPR cardiac rehab ed Routine ECG 12 lead ECG Stat 10/07/23 05:00 ECG 12 lead ECG IN AM Troponin I High Sensitivity [CHEM] IN AM Documented By: Esdras Blas DO 10/06/23 1408 Signed By: <Electronically signed by Esdras Blas DO> 10/06/23 1414 [facility] Work Phone: 1(952) 128-137304-24-2024 [facility] Note Normal sinus rhythm with poor R wave progression anterior [id number] History of Present illness Narrative* Neva Almaguer MD - 09/29/2023 12:50 PM EDT Cardiology Consultation- New Consult Reason for referral: Angina and an abnormal stress test HPI: Elvin Fontaine is a 68 y.o. male with no previous cardiac history has been complaining of symptoms of exertional chest heaviness and shortness of breath. His symptoms seem to be gradually progressing over the last few months. He reported during the [place] he was not able to walk 1-2 blocks without getting pressure and heaviness in his chest. He was referred for a stress test that demonstratedexercise-induced chest heaviness at low exercise level. Patient report blood pressure on occasion runs in the high range. He was diagnosed recently with hyperlipidemia with LDL of 150. He is a formersmoker. He is overweight. His recent stress test noted and reviewed with him. I also reviewed his recent lab with him. Patient also reported occasional chest pain when he lay down at night suggestiveof possible gastroesophageal flux disease. He has no past medical history on file. Assessment 1. Functional class II almost 3 exertional shortness of breath and chest heaviness consistent with exertional angina with recently positive stress test at low exercise level 2. Probable stage I hypertension 3. Hyperlipidemia started on atorvastatin 4. Obesity 5. Former smoker 6. Patient report occasional nocturnal chest heaviness suspicious of gastroesophageal flux disease Plan 1. I advised the patient to continue aspirin and atorvastatin and start metoprolol XL 25 mg once daily and I also added nitroglycerin as needed 2. I reviewed the result of his stress test. We discussed prognosis, diagnosis and treatment option. Considering new onset angina at low exercise level I advised the patient to proceed with cardiac catheterization. Risk, benefit and alternative reviewed with patient at great length he understood and agreed 3. We discussed risk factor modification with special emphasis on weight loss and treatment for hyperlipidemia 4. I reviewed with the patient results of his lab work and recent stress test 5. I recommended echocardiogram Surgical History: He has a past surgical history that includes Shoulder arthroscopy (Bilateral); Hernia repair; and Colonoscopy. Family History: Family History Problem Relation Name Age of Onset Atrial fibrillation Father Social History: Social History Tobacco Use Smoking status: Former Current packs/day: 0.00 Types: Cigarettes Quit date: 09/29/2003 Years since quittin.0 Smokeless tobacco: Never Substance Use Topics Alcohol use: Yes Comment: social Allergies: Patient has no known allergies. Current Medications: Current Outpatient Medications: aspirin 81 mg EC tablet, Take 1 tablet (81 mg) by mouth once daily., Disp: , Rfl: cholecalciferol (Vitamin D3) 400 unit capsule, Take 5 capsules (50 mcg) by mouth once daily., Disp:, Rfl: melatonin (Melatin) 3 mg tablet, Take 1 tablet (3 mg) by mouth as needed at bedtime for sleep., Disp: , Rfl: multivitamin tablet, Take 1 tablet by mouth once daily., Disp: , Rfl: atorvastatin (Lipitor) 20 mg tablet, Take 1 tablet (20 mg) by mouth once daily., Disp: , Rfl: metoprolol succinate XL (Toprol-XL) 25 mg 24 hr tablet, Take 1 tablet (25 mg) by mouth once daily. Do not crush or chew., Disp: , Rfl: Vitals: Vitals: 09/29/23 1301 09/29/23 1302 BP: (!) 144/94 138/84 BP Location: Right arm Left arm Patient Position: Sitting Pulse: 70 Weight: 98.9 kg (218 lb) Height: 1.753 m (5' 9 ) EKG done in office today Review of Systems Cardiovascular: Positive for chest pain and dyspnea on exertion. All other systems reviewed and are negative. Objective Physical Exam Constitutional: Appearance: Normal appearance. HENT: Nose: Nose normal. Neck: Vascular: No carotid bruit. Cardiovascular: Rate and Rhythm: Normal rate. Pulses: Normal pulses. Heart sounds: Normal heart sounds. Pulmonary: Effort: Pulmonary effort is normal. Abdominal: General: Bowel sounds are normal. Palpations: Abdomen is soft. Musculoskeletal: General: Normal range of motion. Cervical back: Normal range of motion. Right lower leg: No edema. Left lower leg: No edema. Skin: General: Skin is warm and dry. Neurological: General: No focal deficit present. Mental Status: He is alert. Psychiatric: Mood and Affect: Mood normal. Behavior: Behavior normal. Thought Content: Thought content normal. Judgment: Judgment normal. Assessment and Plan: 1. Exertional angina (CMS-HCC) 2. Dyspnea on exertion 3. Mixed hyperlipidemia 4. Abnormal stress test 5. BMI 32.0-32.9,adult 6. Former smoker 7. Essential hypertension Scribe Attestation By signing my name below, Coco Carvajal LPN, Scribe attest that this documentation has been prepared under the direction and in the presence of MD Misael. Provider Attestation - Scribe documentation All medical record entries made by the Scribe were at my direction and personally dictated by me. Ihave reviewed the chart and agree that the record accurately reflects my personal performance of the history, physical exam, discussion and plan. documented in this [facility] Work Phone: 1(327) 716-602604-17-2024 Instructions* Patient Instructions* Coco Espinosa LPN - 09/29/2023 12:50 PM EDT Please bring all medicines, vitamins, and herbal supplements with you when you come to the office. Prescriptions will not be filled unless you are compliant with your follow up appointments or have a follow up appointment scheduled as per instruction of your physician. Refills should be requested at the time of your visit. BMI was above normal measurement. Current weight: 98.9 kg (218 lb) Weight change since last visit (-) denotes wt loss 218 lbs Weight loss needed to achieve BMI 25: 49.1 Lbs Weight loss needed to achieve BMI 30: 15.3 Lbs Provided instructions on dietary changes Provided instructions on exercise. Paper order completed and signed for cath to supervisor front to schedule. [facility] Work Phone: Evaluation noteNo assessment information available [facility] Work Phone: Evaluation note* Diagnosis Exertional angina (CMS-HCC)- Primary Other and unspecified angina pectoris Dyspnea on exertion Other dyspnea and respiratory abnormality Mixed hyperlipidemia Abnormal stress test Other nonspecific abnormal cardiovascular system function study BMI 32.0-32.9,adult Former smoker Personal history of tobacco use, presenting hazards to health Essential hypertension Unspecified essential hypertension documented in this encounter [facility] Work Phone: Evaluation note* Diagnosis Onset Date Resolution Status Abnormal cardiovascular stress test acute Angina pectoris acute Hypercholesteremia acute Hypertension acute [facility] Work Phone: Evaluation note* Diagnosis Exertional angina (CMS-HCC) Other and unspecified angina pectoris Dyspnea on exertion Other dyspnea and respiratory abnormality Abnormal stress test Other nonspecific abnormal cardiovascular system function study Essential hypertension Unspecified essential hypertension documented in this encounter [facility] Work Phone: Evaluation note* Diagnosis Single vessel coronary artery disease- Primary Coronary atherosclerosis of unspecified type of vessel, [place] or graft Exertional angina (CMS-HCC) Other and unspecified angina pectoris Abnormal stress test Other nonspecific abnormal cardiovascular system function study Dyspnea on exertion Other dyspnea and respiratory abnormality Essential hypertension Unspecified essential hypertension Mixed hyperlipidemia BMI 31.0-31.9,adult Former smoker Personal history of tobacco use, presenting hazards to health documented in this encounter [facility] Work Phone: Evaluation note* Diagnosis Single vessel coronary artery disease- Primary Coronary atherosclerosis of unspecified type of vessel, [place] or graft Mixed hyperlipidemia Dyspnea on exertion Other dyspnea and respiratory abnormality Essential hypertension Unspecified essential hypertension Abnormal stress test Other nonspecific abnormal cardiovascular system function study BMI 32.0-32.9,adult Former smoker Personal history of tobacco use, presenting hazards to health documented in this encounter [facility] Work Phone: Reason for referral (narrative)* Consultation (Routine) - Authorized Specialty Diagnoses / Procedures Referred By Contac t Referred To Contact Cardiology Diagnoses Single vessel coronary artery disease Procedures Follow Up In Cardiology Neva Almaguer MD [address] [facility] [address], [place] [address] [place] [address] Neva Almaguer MD [address] [facility] [address] [place] [address] Referral ID Status Reason Start Date Expiration Date V isits Requested Visits Authorized [id number] Authorized 11/25/2023 11/24/2024 1 1 [facility] Work Phone: Summary Purpose Family History No Family History Records Found Relationship Condition Age at Onset Recorded Date/T chapis father Dementia Unknown Not Specified Dementia Unknown Relationship Condition Age at Onset Recorded Date/T chapis father Dementia Unknown mother Dementia Unknown Advance Directives No Advanced Directives Records Found Advance Directive Response Recorded Date/ Time Advance Directives No December 02 10:22pm Advance Directive Response Recorded Date/ Time Advance Directives No December 02 9:22pm Procedure Findings Note Patient: ELVIN FONTAINE Age: 63 years Sex: Male : 1955 Associated Diagnoses: None Author: Rani Keys Results Review Original Procedure Date 02/15/2019 Revised repeat colonoscopy interval 1 year Adenomatous polyp(s) present Advanced neoplasm greater than 10mm, high grade dysplasia, villous component Adenocarcinoma present No Serrated lesion(s) present No Hyperplastic polyp(s) present Yes Chief Complaint and Reason for Visit Chief Complaint r07.89 e78.2 z83.49 z79.89 Chief Complaint r07.89 e78.2 z83.49 z79.89 chest pain dyslipid htn Chief Complaint r07.89 e78.2 z83.49 z79.89 chest pain dyslipid htn I20.89 R06.09 R94.10 I 10 Chief Complaint r07.89 e78.2 z83.49 z79.89 chest pain dyslipid htn I20.89 R06.09 R94.10 I 10 I20.89 R06.09 R94.10 I 10 Exposure - Source Reason for Visit Abnormal cardiovascu lar stress test Angina pectoris Hypercholesteremia Hypertension Chief Complaint Admit Date wheeze. chronic cough July 24 1:55pm Chief Complaint Admit Date wheeze. chronic cough July 24 1:55pm I25.10 I10 E78.2 July 28, 2024 7:52am Reason for Referral Specialty Diagnoses / Procedures Referred By Ni t Referred To Contact Cardiology Diagnoses Exertional angina ([facility]) Dyspnea on exertion Abnormal stress test Essential hypertension Procedures Transthoracic Echo Complete NH ECHO TTHRC R-T 2D W/WOM-MODE COMPL SPEC&COLR D Neva Almaguer MD [address] [facility] [address], [place] [address] [place] [address] Referral ID Status Reason Start Date Expiration Date Visits Requested Visits Authorized [id number] Pending Review Perform Procedure 09/29/2023 09/28/2024 1 1 Specialty Diagnoses / Procedures Referred By Ni castellon Referred To Contact Diagnoses Exertional angina ([facility]) Procedures ECG 12 Lead Neva Almaguer MD [address] [facility] [address] [place] [address] [place] [address] Referral ID Status Reason Start Date Expiration Date V isits Requested Visits Authorized [id number] Authorized 09/29/2023 09/28/2024 1 1 Specialty Diagnoses / Procedures Referred By Ni castellon Referred To Contact Cardiology Diagnoses Exertional angina ([facility]) Procedures Follow Up In Cardiology Neva Almaguer MD [address] [facility] [address], [address] [place] [address] Neva Almaguer MD [address] [facility] [address], [place] [address] [place] [address] Referral ID Status Reason Start Date Expiration Date V isits Requested Visits Authorized [id number] Authorized 09/29/2023 09/28/2024 1 1 Additional Source Comments (unrecognized sect ion and content) No Status Records FoundNo Status Records FoundNo Status Records FoundNo Status Records Found INFORMATION SOURCE (unrecogn ized section and content) DATE CREATED AUTHOR 01/22/2020 [facility] DATE CREATED AUTHOR AUTHOR'S ORGANIZ ATION 12/30/2023 [facility] DATE CREATED AUTHOR AUTHOR'S ORGANIZ ATION 08/07/2024 [facility] DATE CREATED AUTHOR AUTHOR'S ORGANIZ ATION 08/19/2024 [facility] Retail Sales Merchandiser Teams (unrecognized sec tion and content) Team Status: Active Member Role Status Dates Barrera Arriola DO Primary Care Provider Active Team Status: Inactive Member Role Status Dates Barrera Arriola DO Primary Care Provide r, Attending Provider Active Start: September 07, 2023 End: September 07, 2023 Team Status: Inactive Member Role Status Dates Barrera Arriola DO Primary Care Provide r, Attending Provider Active Start: September 17, 2023 End: September 17, 2023 Brain Stanley MD Referring Provider Active Start: September 16 End: September 17, 2023 Chemical Instrumentation Officer Relationship Specialty Start Date End Date Barrera Arriola DO [address] [facility] [place] [address] PCP - General Family Medicine 09/08/23 Team Status: Inactive Member Role Status Dates Barrera Arriola DO Primary Care Provider Active Start: October 04, 2023 End: October 04, 2023 Neva Almaguer MD Attending Provider Active Start: October 04, 2023 End: October 04, 2023 Team Status: Inactive Member Role Status Dates Barrera Arriola DO Primary Care Provider Active Start: October 06, 2023 End: October 06, 2023 Neva Almaguer MD Attending Provider Active Start: October 06, 2023 End: October 06, 2023 Team Status: Active Member Role Status Dates Barrera Arriola DO Primary Care Provider Active Start: October 06, 2023 Major Garcia - SILVIA , DO [facility] Attending Provider Active Start: October 06, 2023 Team Status: Inactive Member Role Status Dates Barrera Arriola DO Primary Care Provider Active Start: October 06, 2023 End: October 06, 2023 Major Garcia - SILVIA , DO [facility] Attending Provider Active Start: October 06, 2023 End: October 06, 2023 Team Status: Inactive Member Role Status Dates Barrera Arriola DO Primary Care Provider Active Start: October 07, 2023 End: October 07, 2023 Major Garcia - SILVIA , DO [facility] Attending Provider Active Start: October 07, 2023 End: October 07, 2023 Chemical Instrumentation Officer Relationship Specialty Start Date End Date Barrera Arriola DO [address] [place] [address] PCP - General Family Medicine 09/08/23 Chemical Instrumentation Officer Relationship Specialty Start Date End Date Barrera Arriola DO [address] [place] [address] PCP - General Family Medicine 09/08/23 Team Status: Inactive Member Role Status Ghazal Arriola DO Primary Care Provide r, Attending Provider Active Start: July 24, 2024 End: July 24, 2024 Team Status: Inactive Member Role Status Dates Barrera Arriola DO Primary Care Provider Active Start: July 28, 2024 End: July 28, 2024 Neva Almaguer MD Attending Provider Active Start: July 28, 2024 End: July 28, 2024 Chemical Instrumentation Officer Relationship Specialty Start Date End Date Barrera Arriola DO [address] [place] [address] PCP - General Family Medicine 09/08/23 Goals (unrecognized section and content) Goals may be documented in a n alternate sectionGoals may be documented in an alternate sectionGoals may be documented in an alternate sectionGoals may be documented in an alternate sectionGoals may be documented in an alternate section Reason for Visit (unrecogniz ed section and content) Reason Comments New Patient Visit SOB, Angina, Abn str ess Specialty Diagnoses / Procedures Referred By Ni castellon Referred To Contact Diagnoses Exertional angina ([facility] Procedures ECG 12 Lead Neva Almaguer MD [address] [facility] [address], [place] [address] [place] [address] Referral ID Status Reason Start Date Expiration Date V isits Requested Visits Authorized [id number] Authorized 09/29/2023 09/28/2024 1 1 Specialty Diagnoses / Procedures Referred By Ni castellon Referred To Contact Cardiology Diagnoses Exertional angina ([facility] Dyspnea on exertion Abnormal stress test Essential hypertension Procedures Transthoracic Echo Complete NH ECHO TTHRC R-T 2D W/WOM-MODE COMPL SPEC&COLR D Neva Almaguer MD [address] [facility] [address], [address] [place] [address] Referral ID Status Reason Start Date Expiration Date Visits Requested Visits Authorized [id number] Pending Review Perform Procedure 09/29/2023 09/28/2024 1 1 Reason Comments Follow-up Testing results Specialty Diagnoses / Procedures Referred By Ni castellon Referred To Contact Cardiology Diagnoses Exertional angina ([facility] Procedures Follow Up In Cardiology Neva Almaguer MD [address] [place] [address] Neva Almaguer MD [address] [place] [address] Referral ID Status Reason Start Date Expiration Date V isits Requested Visits Authorized [id number] Authorized 09/29/2023 09/28/2024 1 1 Reason Comments Follow-up 6m Specialty Diagnoses / Procedures Referred By Ni castellon Referred To Contact Cardiology Diagnoses Single vessel coronary artery disease Procedures Follow Up In Cardiology Neva Almaguer MD [address] [place] [address] Phone: tel: fax: Neva Almaguer MD [address] [facility] [address], [facility] [address] [place] [address] Phone: tel: fax: Referral ID Status Reason Start Date Expiration Date V isits Requested Visits Authorized [id number] Authorized 11/25/2023 11/24/2024 1 1 FOR RECORDS PERTAINING TO PATIENTS WHO ARE OR HAVE BEEN ENROLLED IN A CHEMICAL DEPENDENCY/SUBSTANCEABUSE PROGRAM, SOME INFORMATION MAY BE OMITTED. This clinical summary was aggregated from multiple sources. Caution should be exercised in using it in the provision of clinical care. This summary normalizes information from multiple sources, and as a consequence, information in this document may materially change the coding, format and clinical context of patient data. In addition, data may be omitted in some cases. CLINICAL DECISIONS SHOULD BE BASED ON THE PRIMARY CLINICAL RECORDS. [employer] provides no warranty or guarantee of the accuracy or completeness of information in this document.
--- NOTE | 2025-01-29 11:13 | XR_ITS ---
[facility] [place] [id number] Patient Name: ELVIN FONTAINE MRN: [id number] date: 1955 Sex: M Assigned Patient Location: ER Current Patient Location: ER Accession/Order Number: [id number] Exam Date: 01/29/2025 12:21 Report Date: 01/29/2025 12:22 At the request of: RAMIREZ NUNO Procedure: XR humerus LT XR humerus LT 01/29/2025 12:15 PM SIGNS AND SYMPTOMS: ^Arm pain, ecchymosis PROTOCOL: Frontal and lateral radiographs of the left humerus COMPARISON: None FINDINGS: No fracture or dislocation. The visualized elbow and shoulder grossly intact. Degenerative changes are present in the glenohumeral joint. Subcortical cystic changes noted along the greater tuberosity of the left humeral head suspicious for underlying rotator cuff pathology. XR/XR humerus LT IMPRESSION: No acute displaced fracture. Findings suggest rotator cuff pathology within the left shoulder. Impression dictated by: Thom Lemus M.D. 01/29/2025 12:22 PM Dictation Location: [place] [address] Electronically authenticated by: [id number] Y Date: 01/29/2025 12:22
--- NOTE | 2025-01-29 11:13 | XR_ITS ---
The [address] [address] Patient Name: ELVIN FONTAINE MRN: [id number] date: 1955 Sex: M Assigned Patient Location: ER Current Patient Location: ER Accession/Order Number: [id number] Exam Date: 01/29/2025 12:22 Report Date: 01/29/2025 12:23 At the request of: RAMIREZ NUNO Procedure: XR shoulder LT min 2V XR shoulder LT min 2V 01/29/2025 12:15 PM SIGNS AND SYMPTOMS: ^Shoulder pain PROTOCOL: Frontal, Grashey, and scapular Y views of the left shoulder COMPARISON: None FINDINGS: There is mild narrowing of the glenohumeral joint. The acromioclavicular joint is preserved. There is no evidence of acute displaced fracture. No dislocation. Subcortical cystic changes noted along the greater tuberosity of the humeral head suggesting underlying rotator cuff pathology. XR/XR shoulder LT min 2V IMPRESSION: No fracture or dislocation. Degenerative changes are noted with findings suggesting underlying rotator cuff pathology. Impression dictated by: Thom Lemus M.D. 01/29/2025 12:23 PM Dictation Location: [place] [address] Electronically authenticated by: [id number] Y Date: 01/29/2025 12:23
--- NOTE | 2025-01-29 11:16 | ED.GENADUL1 ---
HPI HPI - General Adult General Chief complaint: Extremity Injury, Upper Stated complaint: L SHOULDER PAIN Time Seen by Provider: 01/29/25 10:45 Source: patient Mode of arrival: walk-in Limitations: no limitations History of Present Illness HPI narrative: Patient is a 69-year-old male with a history of cardiac stents and hypertension on Plavix that presents to the emergency department with complaints of about 2 weeks of left-sided shoulder pain and ecchymosis after he was setting up at a campground and fell and tried to hold on with his left arm. He did fall onto his back and denies falling on his left shoulder. 2 days ago on Wednesday he states he was putting up a popup tent, denies feeling a pop, and started to have progressively worsening pain to the point where he could not even lift the bucket after that. He has has a lot of pain since Wednesday and has tried to take Tylenol without relief of his pain. He states that his range of motion is greatly reduced, it is hard to even put on deodorant or perform hygiene. He did have some bruising down the back of his upper left arm. He does have a history of a arthroscopic surgery in 2008 on the shoulder, he is unsure if it was a labral or rotator cuff repair. He is not currently established with an orthopedic physician. He denies any back pain, chest pain, shortness of breath, abdominal pain, numbness or tingling to his extremities. Related Data Home Medications ?Medication ?Instructions ?Recorded ?Confirmed albuterol sulfate 90 mcg/actuation 2 puff inhalation Q6H PRN 08/29/24 08/29/24 aerosol inhaler shortness of breath or wheezing atorvastatin 40 mg tablet 40 mg PO DAILY 08/29/24 08/29/24 clopidogrel 75 mg tablet 75 mg PO DAILY 08/29/24 08/29/24 metoprolol succinate 25 mg 25 mg PO DAILY 08/29/24 08/29/24 tablet,extended release 24 hr nitroglycerin 0.4 mg sublingual 0.4 mg sublingual Q5M PRN chest 08/29/24 08/29/24 tablet pain Previous Rx's ?Medication ?Instructions ?Recorded budesonide-formoterol HFA 160 1 puff inhalation BID #10.2 grams 09/01/24 mcg-4.5 mcg/actuation aerosol inhaler (Symbicort) levofloxacin 750 mg tablet 750 mg PO DAILY 5 days #5 tabs 09/01/24 prednisone 20 mg tablet 20 mg PO BID 7 days #14 tabs 09/01/24 prednisone 50 mg tablet 50 mg PO DAILY 5 days #5 tabs 01/29/25 Allergies Allergy/AdvReac Type Severity Reaction Status Date / Time lisinopril Allergy Severe lip Verified 08/29/24 13:12 swelling Opioid HPI Opioid Management Most Recent Opioid Data: Last Pain Scale 10 Today, 11:33 Last ORT Total Score 0 08/29/24, 16:10 Last ORT Risk Category Low Risk 08/29/24, 16:10 Review of Systems ROS Status of ROS 10 or more systems reviewed and unremarkable except as noted in history and below PFSH [facility] Medical History (Updated 01/29/25 @ 12:53 by NURYS Porras) Primary hypertension ?I10 - Essential (primary) hypertension (ICD-10) Hyperlipidemia ?E78.5 - Hyperlipidemia, unspecified (ICD-10) CAD in [place] artery ?I25.10 - Atherosclerotic heart disease of [place] coronary artery without angina pectoris (ICD-10) Surgical History (Updated 08/29/24 @ 17:03 by Maria Alejandra Sharma DO) History of heart artery stent ?Z95.5 - Presence of coronary angioplasty implant and graft (ICD-10) Social History Highest level of school completed/degree received: high school graduate Little interest or pleasure in doing things: not at all Feeling down, depressed, or hopeless: not at all Exam Narrative Exam Narrative: General: No distress, age-appropriate, sitting up on the edge of the ED cart Skin: Warm, dry, no pallor. No rash. Head: Normocephalic, atraumatic. Neck: Supple, non-tender. Eye: Pupils are equal, round and EOMI. No scleral icterus. Ears, Nose, Mouth, and Throat: No nasal mucosal hypertrophy. Oral mucosa is moist, no posterior oropharynx erythema, uvula is mid-line Cardiovascular: Regular Rate and Rhythm without murmur, gallop or rub. Respiratory: No accessory muscle use or respiratory distress. Lungs are clear to auscultation, no wheezing, rales or rhonchi Chest Wall: no tenderness Back: No midline thoracic or lumbar vertebral tenderness. Musculoskeletal: Full ROM of all extremities, except greatly reduced left shoulder forward flexion actively, passively can flex him to 180 with pain. 3/5 strength supraspinatus, external rotation 4/5. Full pain-free left elbow ROM. No ecchymosis appreciated on exam. No calf or popliteal tenderness GI: Abdomen is soft, non-distended, non tender to palpation. No masses appreciated. No rebound, guarding, or rigidity noted. Neurological: A&O x4. No cranial nerve dysfunction observed. No truncal ataxia. Moves all extremities. Sensation intact. Psychiatric: Cooperative and interactive. Normal mood and affect. Constitutional Vital Signs, click to edit/add: Last Vital Signs Temp 98.2 F 01/29/25 10:38 Pulse 74 01/29/25 10:38 Resp 18 01/29/25 10:38 BP 171/91 H 01/29/25 10:38 Pulse Ox 95 01/29/25 10:38 O2 Del Method Room Air 01/29/25 10:38 Course Vital Signs Vital signs: Vital Signs Temperature 98.2 F 01/29/25 10:38 Pulse Rate 74 01/29/25 10:38 Respiratory Rate 18 01/29/25 10:38 Blood Pressure 171/91 H 01/29/25 10:38 Pulse Oximetry 95 01/29/25 10:38 Oxygen Delivery Method Room Air 01/29/25 10:38 Temperature 98.2 F 01/29/25 10:38 Pulse Rate 74 01/29/25 10:38 Respiratory Rate 18 01/29/25 10:38 Blood Pressure 171/91 H 01/29/25 10:38 Pulse Oximetry 95 01/29/25 10:38 Oxygen Delivery Method Room Air 01/29/25 10:38 Medical Decision Making [facility] Narrative Medical decision making narrative: 69-year-old male presents to the ED with complaints of left shoulder pain for about 2 weeks after a fall onto his back, worsened this past Wednesday. He is on Plavix so is limited to Tylenol for pain. He did have some ecchymosis on the posterior aspect of his left upper arm after the initial pain started, this has resolved today. X-ray of the left shoulder and humerus ordered. Patient denies anything for pain as he has to drive back home to [place]. Given history, exam and workup patient likely has a rotator cuff injury or tear. I have low suspicion for fracture, dislocation, significant ligamentous injury, septic arthritis, gout flare, new autoimmune arthropathy, or gonococcal arthropathy. Xray findings discussed with patient and I recommend follow up with Ortho for further evaluation and managment. I discussed with patient I am going to prescribe him a steroid burst to help with inflammation and pain. I also recommended continuing with ice and Tylenol. I did demonstrate some range of motion exercises for him to continue, he has already been doing this as he has had 2 previous shoulder surgeries. He denies need for sling or pain medication here again. Patient was discharged with a prescription for prednisone and follow-up with Ortho. Differential Diagnosis Differential Diagnosis: Rotator cuff tear, humerus fracture, osteoarthritis flare Imaging Data X-Ray Shoulder: Attestation: I have reviewed the pertinent imaging results. Radiologist's impression: ITS Impressions Humerus X-Ray 01/29/25 11:13 IMPRESSION: No acute displaced fracture. Findings suggest rotator cuff pathology within the left shoulder. Impression dictated by: Thom Lemus M.D. 01/29/2025 12:22 PM Dictation Location: [place] [address] Electronically authenticated by: [id number] Y Date: 01/29/2025 12:22 Shoulder X-Ray 01/29/25 11:13 IMPRESSION: No fracture or dislocation. Degenerative changes are noted with findings suggesting underlying rotator cuff pathology. Impression dictated by: Thom Lemus M.D. 01/29/2025 12:23 PM Dictation Location: [place] [address] Electronically authenticated by: [id number] Y Date: 01/29/2025 12:23 Discharge Plan Discharge Chief Complaint: Extremity Injury, Upper Clinical Impression: Acute shoulder pain Qualifiers: Laterality: left Qualified Code(s): M25.512 - Pain in left shoulder Rotator cuff injury Qualifiers: Encounter type: initial encounter Laterality: left Qualified Code(s): S46.002A - Unspecified injury of muscle(s) and tendon(s) of the rotator cuff of left shoulder, initial encounter Patient Disposition: Home, Self-Care Time of Disposition Decision: 12:14 Condition: Good Mode of Transportation: Private Vehicle Prescriptions / Home Meds: New prednisone 50 mg tablet 50 mg PO DAILY 5 Days Qty: 5 0RF No Action clopidogrel 75 mg tablet 75 mg PO DAILY albuterol sulfate 90 mcg/actuation HFA aerosol inhaler 2 puff INHALATION Q6H PRN (Reason: shortness of breath or wheezing) metoprolol succinate 25 mg tablet extended release 24 hr 25 mg PO DAILY atorvastatin 40 mg tablet 40 mg PO DAILY nitroglycerin 0.4 mg tablet, sublingual 0.4 mg sublingual Q5M PRN (Reason: chest pain) prednisone 20 mg tablet 20 mg PO BID 7 Days Qty: 14 0RF budesonide-formoterol [Symbicort] 160-4.5 mcg/actuation HFA aerosol inhaler 1 puff inhalation BID Qty: 10.2 0RF levofloxacin 750 mg tablet 750 mg PO DAILY 5 Days Qty: 5 0RF Print Language: [place] Instructions: Rotator Cuff Injury (ED) Additional Instructions: Prednisone, steroids, sent to pharmacy to help with inflammation and pain. Continue to rest and use ice treatments. Home exercise range of motion exercises recommended until orthopedic follow-up. Return to the ER if pain is not controlled or you are having any new or worsening symptoms. Referrals: BARRERA ARRIOLA [Primary Care Provider, Family Practice] - 1 week Sincere Nolan MD [Physician, Orthopedics] - As soon as possible Discharge Date/Time: 01/29/25 13:01
--- NOTE | 2025-01-29 11:34 | PC.NURSE ---
pt had caught himself fixing his camper 2 weeks ago and had slipped. pt did catch himself but has had L shoulder pain ever since. didn't hurt too bad until wednesday. no deformity noted, but ROM very limited.
== END 2025-01-29 13:01 | disposition home or self-care (01) ==
PROVIDERS: Emergency Provider Emergency Medicine; PCP Family Medicine
DX: S46.002A Unspecified injury of muscle(s) and tendon(s) of the rotator cuff of left shoulder, initial encounter (principal); M25.512 Pain in left shoulder; I10 Essential (primary) hypertension; Z95.5 Presence of coronary angioplasty implant and graft; Z79.02 Long term (current) use of antithrombotics/antiplatelets; W19.XXXA Unspecified fall, initial encounter
CPT/HCPCS: 73030; 73060; 99284